=== PATIENT | female | born 1960 | race African-American/Black ===

== ENCOUNTER 2018-03-23 07:28 | Observation (INO) ==
--- NOTE | 2018-03-23 08:00 | Emergency Department Note ---
Disposition Clinical Impression: Elevated troponin, Subtherapeutic international normalized ratio (INR), S/P mitral valve replacement CHF exacerbation Qualifiers: Heart failure type: unspecified Qualified Code(s): I50.9 - Heart failure, unspecified Disposition: Admitted As Inpatient Condition: Good Time of Disposition: 10:33 Chest Pain HPI - General Chief Complaint: ED Chest Pain Stated Complaint: abnormal ekg,chest congestion,pericardial effusion Time Seen by Provider: 03/23/18 07:38 Source: patient Limitations: no limitations Vital Signs Reviewed: Yes Nursing Notes Reviewed: Yes - History of Present Illness HPI Narrative: 57-year-old female history of rheumatic fever s/p mitral porcine and then mechanical valve on Coumadin 1992 and pacemaker/defibrillator presents to the emergency department for congestion, chest pressure and concern of fluid around the heart. Patient's been experiencing cough congestion over the past 4 days. She also reports an incident of sharp chest pain while laying flat 1030 yesterday morning she got up and got more sharper she reports taking some Tylenol for headache as well as a nitro with immediate relief. She denies any chest pain at this moment. With congestion she has been more short of breath and feels more fatigued. Dyspneic on laying flat. She is typically very active but she feels more exhausted than usual. She does report incidents at work falling asleep. She denies any syncope. She does report a low-grade fever of 99 at home. No other sick contacts. Patient was evaluated at urgent care yesterday evening at 1700 where chest x-ray showed out in large heart with mild congestion with possibility of pericardial effusion. Patient was recommended to come to emergency department for further evaluation but declined transfer by ambulance and awaited until this morning to come. She denies any chest pain since. Denies any history of trauma. Of note she follows at the [facility] for her heart failure and valve. 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 She moved from [place] 2 years ago here to [place]. Denies any leg swelling. Denies any history of blood clots. She is not on any hormone replacement. At this time will obtain a chest x-ray basic labs and check her INR for the mechanical valve. Severity scale (1-10): 7 - Related Data Home Medications Medication Instructions Recorded Confirmed Carvedilol [Coreg] 25 mg PO BID 03/23/18 03/23/18 Digoxin [Lanoxin] 125 mcg PO DAILY 03/23/18 03/23/18 Furosemide [Lasix] 40 mg PO DAILY 03/23/18 03/23/18 Lisinopril [Zestril] 40 mg PO DAILY 03/23/18 03/23/18 Multivit-Minerals/Folic/Ginkgo 1 tab PO DAILY 03/23/18 03/23/18 [One Daily For Women 50+ Adv Tb] Nitroglycerin [Nitrostat] 0.4 mg SL Q5M PRN 03/23/18 03/23/18 [place]-3/Dha/Epa/Fish Oil [Fish Oil 1 tab PO DAILY 03/23/18 03/23/18 1,000 mg Softgel] Pravastatin Sodium [Pravachol] 20 mg PO DAILY 03/23/18 03/23/18 Warfarin [Coumadin] 7.5 mg PO SUTUTHSA 03/23/18 03/23/18 Warfarin [Coumadin] 10 mg PO MOWEFR 03/23/18 03/23/18 Allergies Allergy/AdvReac Type Severity Reaction Status Date / Time loratadine [From Claritin] Allergy Palpitation Verified 03/23/18 10:17 s morphine Allergy Hives Verified 03/23/18 10:17 All systems ED: reviewed and negative except as stated. Review of Systems: As Per HPI Constitutional: Reports: fever, chills. Denies: weakness ENT ED: Reports: congestion Cardiovascular: Reports: chest pain, dyspnea on exertion. Denies: palpitations Respiratory: Reports: cough, dyspnea Gastrointestinal: Denies: abdominal pain, nausea, vomiting Integumentary: Denies: rash, abrasion Chest Pain PMH - Past Medical History Medical history: Reports: non-contributory, asthma, CHF, hypertension, other Psychiatric history: Reports: no psych history - Social History Smoking Status: Never smoker Alcohol use: Reports: none Drug use: Reports: none Physical Exam - General Limitations: no limitations General appearance: alert, in no apparent distress - Head Head exam: atraumatic, normocephalic, normal inspection - Eye Eye exam: Present: normal appearance, PERRL, EOMI. Absent: scleral icterus - ENT ENT exam: normal exam, normal oropharynx, mucous membranes moist - Neck Neck exam: Present: normal inspection, full ROM, trachea midline - Chest Chest inspection: Present: normal inspection, symmetric chest wall rise, other ( midsternal). Absent: tenderness - Respiratory Respiratory exam: Absent: respiratory distress, wheezes, accessory muscle use - Expanded Respiratory Exam Location: rales: Lower - Cardiovascular Cardiovascular exam: Present: normal rhythm, tachycardia, normal heart sounds, clicks - Abdominal Exam Abdominal exam: Present: soft, Non-Tender, normal bowel sounds. Absent: tenderness, distention, guarding, rebound, rigidity - Extremities Exam Extremities exam: Present: normal inspection, full ROM, normal capillary refill. Absent: tenderness, pedal edema Course Course Narrative: Patient presents with chest pressure with dyspnea worse with laying flat. Concerning for possible CHF exacerbation. Prior chest x-ray performed with cardiomegaly and the possibility of pericardial effusion. Chest pain workup initiated here. Patient appears in no acute distress. EKG shows a paced rhythm without ischemic findings. - Reevaluation(s) Reevaluation #1: Patient has a elevated troponin 0.06. She is not have any chest pain at this time. Elevated BNP 554. Chest x-ray shows some vascular congestion. Suspect this is likely more acute CHF exacerbation Labs or otherwise unremarkable. Her INR is on the lower side given her mechanical valve of 1.5. She denies any G.I. bleed symptoms. Emergent bedside ultrasound performed given the concern for pericardial effusion in the presence of the admitting hospitalist which did not reveal any pericardial effusion or findings consistent with tamponade. The pump function of the heart appears on the lower side roughly 20%. At the request of the admitting hospitalist will obtain a bedside echocardiogram. Patients otherwise in stable condition. Impression is elevated troponin likely secondary to CHF exacerbation as well as a sub therapeutic INR. - Consultations Consultation #1: Spoke with on-call hospitalist niles Thompson to admit for elevated troponin. No further orders at this time Time: 10:33 Vital Signs Temperature 97.8 F 03/23/18 07:30 Pulse Rate 110 03/23/18 07:30 Respiratory Rate 16 03/23/18 07:30 Blood Pressure 147/100 03/23/18 07:30 O2 Sat by Pulse Oximetry 95 03/23/18 07:30 Temperature 98 F 03/23/18 19:17 Pulse Rate 70 03/23/18 19:17 Respiratory Rate 16 03/23/18 19:17 Blood Pressure 92/46 03/23/18 19:19 O2 Sat by Pulse Oximetry 95 03/23/18 19:17 Oxygen Delivery Oxygen Delivery Room Air Chest Pain - MDM Narrative Medical decision making narrative: Patient was discussed with my attending physician who agrees with ED management and final disposition. They independently evaluated the patient. Please refer to their attestation to this encounter for additional information. This note was generated by [employer] voice recognition software and as a result grammatical or spelling errors may occur using this program. - Medical Records Medical records reviewed: Yes I reviewed the patient's medical records. - Lab Data Lab results reviewed: Yes I reviewed the patient's lab results. Result diagrams: 03/23/18 08:26 03/23/18 08:26 Lab Results 03/23/18 03/23/18 03/23/18 Range/Units 08:26 08:26 08:26 WBC 5.5 (4.3-11.1) K/mcL RBC 4.55 (3.82-4.97) M/mcL Hgb 12.7 (11.5-15.4) g/dL Hct 39.7 (35.3-44.9) % MCV 87.3 (83.0-100.0) fL MCH 27.9 L (28.0-33.3) pg MCHC 32.0 (31.6-35.5) g/dL RDW 16.0 H (11.5-14.5) % Plt Count 241 (140-400) K/mcL MPV 9.6 (9.4-12.4) fL Immature Gran % 0.2 (0-4) % Seg Neutrophils % 63.5 % Lymphocytes % 25.5 % Monocytes % 7.8 % Eosinophils % 2.5 % Basophils % 0.5 % Neutrophils # 3.5 (1.6-8.9) K/mcL Lymphocytes # 1.4 (0.6-4.6) K/mcL Monocytes # 0.4 (0.0-1.3) K/mcL Eosinophils # 0.1 (0.0-0.6) K/mcL Basophils # 0.0 (0.0-0.2) K/mcL Platelet Estimate Normal (Normal) Immature Plt Fraction 2.4 (1.1-6.1) % PT 16.1 H (9.4-12.1) Seconds INR 1.5 APTT 28.3 (26.0-36.0) Seconds Sodium 137 (136-145) mEq/L Potassium 3.4 L (3.5-5.1) mEq/L Chloride 107 (98-107) mEq/L Carbon Dioxide 22 L (23-29) mEq/L BUN 8 (6-20) mg/dL Creatinine 0.63 (0.60-1.20) mg/dL Est GFR ( Amer) > 60 (> 60) Est GFR (Non-Af Amer) > 60 (> 60) BUN/Creatinine Ratio 13 (6-26) Glucose 83 (70-105) mg/dL Calculated Osmolality 281 (280-300) Calcium 9.8 (8.6-10.3) mg/dL Troponin I 0.06 H* (< 0.04) ng/mL B-Natriuretic Peptide (Less than 100) pg/mL 03/23/18 Range/Units 08:26 WBC (4.3-11.1) K/mcL RBC (3.82-4.97) M/mcL Hgb (11.5-15.4) g/dL Hct (35.3-44.9) % MCV (83.0-100.0) fL MCH (28.0-33.3) pg MCHC (31.6-35.5) g/dL RDW (11.5-14.5) % Plt Count (140-400) K/mcL MPV (9.4-12.4) fL Immature Gran % (0-4) % Seg Neutrophils % % Lymphocytes % % Monocytes % % Eosinophils % % Basophils % % Neutrophils # (1.6-8.9) K/mcL Lymphocytes # (0.6-4.6) K/mcL Monocytes # (0.0-1.3) K/mcL Eosinophils # (0.0-0.6) K/mcL Basophils # (0.0-0.2) K/mcL Platelet Estimate (Normal) Immature Plt Fraction (1.1-6.1) % PT (9.4-12.1) Seconds INR APTT (26.0-36.0) Seconds Sodium (136-145) mEq/L Potassium (3.5-5.1) mEq/L Chloride (98-107) mEq/L Carbon Dioxide (23-29) mEq/L BUN (6-20) mg/dL Creatinine (0.60-1.20) mg/dL Est GFR ( Amer) (> 60) Est GFR (Non-Af Amer) (> 60) BUN/Creatinine Ratio (6-26) Glucose (70-105) mg/dL Calculated Osmolality (280-300) Calcium (8.6-10.3) mg/dL Troponin I (< 0.04) ng/mL B-Natriuretic Peptide 554 H (Less than 100) pg/mL - Radiology Data Radiology results reviewed: Yes I reviewed the patient's radiology results. Echocardiogram 03/23/18 10:38 Impressions: LVEF 30%. Mild concentric left ventricular hypertrophy. Indeterminate diastolic function. Atypical septal motion consistent with paced rhythm. Right ventricle appears mildly dialted and hypokinetic. Severely dilated left atrium. Mechaical mitral valve well seated. Leaflets not well visualized, but demonstrate normal function by Doppler. No evidence of pulmonary hypertension identified. A device lead was visualized in the right atrium and right ventricle. Left Ventricular Wall Motion: Rest Echo Findings The apex, apical inferior, mid inferior, basal inferior, apical anterior, mid anterior, basal anterior, apical septal, mid inferior septal, basal inferior septal, apical lateral, mid anterior lateral, basal anterior lateral, mid anterior septal, mid inferior lateral, basal anterior septal and basal inferior lateral crowley were hypokinetic. Findings: Study Quality * Technically adequate exam. ECG Findings * Paced rhythm. Left Ventricle * LVEF 30%. * Normal LV chamber size. * Mild concentric left ventricular hypertrophy. * Indeterminate diastolic function. * Atypical septal motion consistent with paced rhythm. Right Ventricle * Right ventricle appears mildly dialted and hypokinetic. Left Atrium * Severely dilated left atrium. Right Atrium * Moderately dilated right atrium. Aortic Valve * Trileaflet aortic valve. * Trace aortic regurgitation. * No aortic stenosis. Mitral Valve * Mechaical mitral valve well seated. Leaflets not well visualized, but demonstrate normal function by Doppler. * No mitral regurgitation. * No mitral stenosis. Tricuspid Valve * Normal tricuspid valve structure and function. * Trace tricuspid regurgitation. * No evidence of pulmonary hypertension identified. Pulmonic Valve * Normal pulmonic valve structure and function. * No pulmonic regurgitation. Aorta * Normally sized aortic root. Pericardium * The pericardium appears normal. IVC * Normal IVC dimensions and inspiratory collapse. Device lead * A device lead was visualized in the right atrium and right ventricle. Pulmonary Artery * Normal visualized portions of the main pulmonary artery. - EKG Data EKG attestation: Yes I reviewed and interpreted this EKG. EKG results narrative: EKG performed 0748 electronic ventricular paced rhythm with [place] beats 108 beats per minute. No ST elevation or depression. QRS is 110. QT QTC through 61 425. Compared to prior EKG performed 03/22/2018 at 1841 shows similar consistent finding of a regular baseline rhythm with paced rhythm. No Sgarbossa criteria. No acute ischemic changes. Heart Score - Score History: Slightly Suspicious EKG: Non Specific repolarisation Disturbance Age: 45-65 Risk Factors: 1-2 risk factors Troponin: 1-3x normal limit HEART Score Total: 4
[2018-03-23] MEDS ORDERED: 0.9 % Sodium Chloride 500 ML IVC ONE (08:09)
[2018-03-23 08:43] LABS: Basophils % 0.5 %; Eosinophils # 0.1 K/mcL (0.0-0.6); Eosinophils % 2.5 %; Hematocrit 39.7 % (35.3-44.9); Hemoglobin 12.7 g/dL (11.5-15.4); Immature Granulocytes % 0.2 % (0-4); Immature Platelets 2.4 % (1.1-6.1); Lymphocytes # 1.4 K/mcL (0.6-4.6); Lymphocytes % 25.5 %; Mean Corpuscular Hemoglobin 27.9 pg (28.0-33.3); Mean Corpuscular Volume 87.3 fL (83.0-100.0); Mean Platelet Volume 9.6 fL (9.4-12.4); Monocytes # 0.4 K/mcL (0.0-1.3); Monocytes % 7.8 %; Neutrophils # 3.5 K/mcL (1.6-8.9); Platelet Count 241 K/mcL (140-400); Red Blood Count 4.55 M/mcL (3.82-4.97); Segmented Neutrophils % 63.5 %
[2018-03-23 08:59] LABS: BUN/Creatinine Ratio 13 (6-26); Blood Urea Nitrogen 8 mg/dL (6-20); Calcium 9.8 mg/dL (8.6-10.3); Carbon Dioxide 22 mEq/L (23-29); Chloride 107 mEq/L (98-107); Glucose 83 mg/dL (70-105); Osmolality,Calculated 281 (280-300); Potassium 3.4 mEq/L (3.5-5.1); Sodium 137 mEq/L (136-145); eGFR For African Americans > 60 (> 60); eGFR For Non-African Americans > 60 (> 60)
[2018-03-23 09:03] LABS: Troponin I 0.06 ng/mL (< 0.04)
[2018-03-23] MEDS ORDERED: Aspirin 81 MG TAB.CHEW PO STA (09:03)
--- NOTE | 2018-03-23 09:04 | Emergency Department Note ---
Disposition Clinical Impression: Elevated troponin CHF exacerbation Qualifiers: Heart failure type: unspecified Qualified Code(s): I50.9 - Heart failure, unspecified Disposition: Admitted As Inpatient Condition: Good General Adult HPI - General Chief complaint: ED Chest Pain Stated complaint: abnormal ekg,chest congestion,pericardial effusion Time Seen by Provider: 03/23/18 07:38 Source: patient Limitations: no limitations - History of Present Illness Pain Scale: 7 - Related Data Home Medications Medication Instructions Recorded Confirmed Carvedilol [Coreg] 25 mg PO BID 03/23/18 03/23/18 Digoxin [Lanoxin] 125 mcg PO DAILY 03/23/18 03/23/18 Furosemide [Lasix] 40 mg PO DAILY 03/23/18 03/23/18 Lisinopril [Zestril] 40 mg PO DAILY 03/23/18 03/23/18 Multivit-Minerals/Folic/Ginkgo 1 tab PO DAILY 03/23/18 03/23/18 [One Daily For Women 50+ Adv Tb] Nitroglycerin [Nitrostat] 0.4 mg SL Q5M PRN 03/23/18 03/23/18 [place]-3/Dha/Epa/Fish Oil [Fish Oil 1 tab PO DAILY 03/23/18 03/23/18 1,000 mg Softgel] Pravastatin Sodium [Pravachol] 20 mg PO DAILY 03/23/18 03/23/18 Warfarin [Coumadin] 7.5 mg PO SUTUTHSA 03/23/18 03/23/18 Warfarin [Coumadin] 10 mg PO MOWEFR 03/23/18 03/23/18 Allergies Allergy/AdvReac Type Severity Reaction Status Date / Time loratadine [From Claritin] Allergy Palpitation Verified 03/23/18 10:17 s morphine Allergy Hives Verified 03/23/18 10:17 Past Medical History - Past Medical History Medical history: Reports: non-contributory, asthma, CHF, hypertension, other Psychiatric history: Reports: no psych history - Social History Smoking Status: Never smoker Smokeless Tobacco Status: No Alcohol use: Reports: none Drug use: Reports: none Physical Exam - General Limitations: no limitations General appearance: alert, in no apparent distress Course Vital Signs Temperature 97.8 F 03/23/18 07:30 Pulse Rate 110 03/23/18 07:30 Respiratory Rate 16 03/23/18 07:30 Blood Pressure 147/100 03/23/18 07:30 O2 Sat by Pulse Oximetry 95 03/23/18 07:30 Temperature 98.2 F 03/23/18 15:30 Pulse Rate 96 03/23/18 15:30 Respiratory Rate 14 03/23/18 15:30 Blood Pressure 120/79 03/23/18 15:30 O2 Sat by Pulse Oximetry 97 03/23/18 15:30 Oxygen Delivery Oxygen Delivery Room Air Medical Decision Making - Lab Data Result diagrams: 03/23/18 08:26 03/23/18 08:26 Lab Results 03/23/18 03/23/18 03/23/18 Range/Units 08:26 08:26 08:26 WBC 5.5 (4.3-11.1) K/mcL RBC 4.55 (3.82-4.97) M/mcL Hgb 12.7 (11.5-15.4) g/dL Hct 39.7 (35.3-44.9) % MCV 87.3 (83.0-100.0) fL MCH 27.9 L (28.0-33.3) pg MCHC 32.0 (31.6-35.5) g/dL RDW 16.0 H (11.5-14.5) % Plt Count 241 (140-400) K/mcL MPV 9.6 (9.4-12.4) fL Immature Gran % 0.2 (0-4) % Seg Neutrophils % 63.5 % Lymphocytes % 25.5 % Monocytes % 7.8 % Eosinophils % 2.5 % Basophils % 0.5 % Neutrophils # 3.5 (1.6-8.9) K/mcL Lymphocytes # 1.4 (0.6-4.6) K/mcL Monocytes # 0.4 (0.0-1.3) K/mcL Eosinophils # 0.1 (0.0-0.6) K/mcL Basophils # 0.0 (0.0-0.2) K/mcL Platelet Estimate Normal (Normal) Immature Plt Fraction 2.4 (1.1-6.1) % PT 16.1 H (9.4-12.1) Seconds INR 1.5 APTT 28.3 (26.0-36.0) Seconds Sodium 137 (136-145) mEq/L Potassium 3.4 L (3.5-5.1) mEq/L Chloride 107 (98-107) mEq/L Carbon Dioxide 22 L (23-29) mEq/L BUN 8 (6-20) mg/dL Creatinine 0.63 (0.60-1.20) mg/dL Est GFR ( Amer) > 60 (> 60) Est GFR (Non-Af Amer) > 60 (> 60) BUN/Creatinine Ratio 13 (6-26) Glucose 83 (70-105) mg/dL Calculated Osmolality 281 (280-300) Calcium 9.8 (8.6-10.3) mg/dL Troponin I 0.06 H* (< 0.04) ng/mL B-Natriuretic Peptide (Less than 100) pg/mL 03/23/18 Range/Units 08:26 WBC (4.3-11.1) K/mcL RBC (3.82-4.97) M/mcL Hgb (11.5-15.4) g/dL Hct (35.3-44.9) % MCV (83.0-100.0) fL MCH (28.0-33.3) pg MCHC (31.6-35.5) g/dL RDW (11.5-14.5) % Plt Count (140-400) K/mcL MPV (9.4-12.4) fL Immature Gran % (0-4) % Seg Neutrophils % % Lymphocytes % % Monocytes % % Eosinophils % % Basophils % % Neutrophils # (1.6-8.9) K/mcL Lymphocytes # (0.6-4.6) K/mcL Monocytes # (0.0-1.3) K/mcL Eosinophils # (0.0-0.6) K/mcL Basophils # (0.0-0.2) K/mcL Platelet Estimate (Normal) Immature Plt Fraction (1.1-6.1) % PT (9.4-12.1) Seconds INR APTT (26.0-36.0) Seconds Sodium (136-145) mEq/L Potassium (3.5-5.1) mEq/L Chloride (98-107) mEq/L Carbon Dioxide (23-29) mEq/L BUN (6-20) mg/dL Creatinine (0.60-1.20) mg/dL Est GFR ( Amer) (> 60) Est GFR (Non-Af Amer) (> 60) BUN/Creatinine Ratio (6-26) Glucose (70-105) mg/dL Calculated Osmolality (280-300) Calcium (8.6-10.3) mg/dL Troponin I (< 0.04) ng/mL B-Natriuretic Peptide 554 H (Less than 100) pg/mL Attestation Statement - Attestation Attestation: I examined this patient and my medical decision-making was reviewed with the CARDIOTHORACIC ANESTHESIA TECHNICIAN/PA/Advanced Practice Nurse/Resident Physician. I agree with the documented findings, disposition and treatment plan as described except to the extent set forth below. I did see the patient spoke with an examine her and she does have bibasilar coarse crackles, history of aortic valve replacement and is on Coumadin labs are pending. The troponin level is minimally elevated at 0.06. Patient is not in respiratory distress but will need further evaluation hospital for her diagnosis of congestive heart failure, elevated BNP and this was discussed with the hospitalist. 0904
[2018-03-23 09:50] LABS: Platelet Estimate Normal (Normal)
--- NOTE | 2018-03-23 10:38 | Internal Med History&Physical ---
Date of Encounter: 03/23/18 Time of Encounter: 10:33 Internal Medicine - H&P: HPI Chief complaint: sobb , chest pain and cough Admitted From: Emergency Dept Plans for Post Hospital Care: Home History of present illness: Ms. Ojeda is a 57 year old female Patient with history of rheumatic fever had mitral valve replacement first with porcine valve and followed by [facility] mechanical valve in 1992 patient also has had ICD and an replacement twice last ICD 2014 at [facility] patient recently moved from [place] to [place] also history of hypertension she says she was told her heart was weak "about 20% . patient present with chest pressure , increased shortness of breath about 4 days, PND and cough productive of thick sputum no fever or chills she was seen in urgent care center and was told possibly paaricardial effusion and to go to the emergency room for further evaluation but t she decided to go home and then come back to the ER today. Evaluation BNP 554 troponin 0.06. Screening ultrasound ER does not show pericardial effusion but EF about 10-15% He will formally consult cardiology follow-up evaluation. Patient has been feeling very fatiqued and generalized weakness Past Med Surg Social Fam HX - Past Medical History Medical history: non-contributory, asthma, CHF, hypertension, other Psychiatric history: no psych history - Social History Smoking Status: Never smoker Smokeless Tobacco Status: No Alcohol use: none Drug use: none Internal Medicine - H&P: Meds Carvedilol [Coreg] 25 mg PO BID 03/23/18 [History] Digoxin [Lanoxin] 125 mcg PO DAILY 03/23/18 [History] Furosemide [Lasix] 40 mg PO DAILY 03/23/18 [History] Lisinopril [Zestril] 40 mg PO DAILY 03/23/18 [History] Multivit-Minerals/Folic/Ginkgo [One Daily For Women 50+ Adv Tb] 1 tab PO DAILY 03/23/18 [History] Nitroglycerin [Nitrostat] 0.4 mg SL Q5M PRN 03/23/18 [History] [place]-3/Dha/Epa/Fish Oil [Fish Oil 1,000 mg Softgel] 1 tab PO DAILY 03/23/18 [ History] Pravastatin Sodium [Pravachol] 20 mg PO DAILY 03/23/18 [History] Warfarin [Coumadin] 7.5 mg PO SUTUTHSA 03/23/18 [History] Warfarin [Coumadin] 10 mg PO MOWEFR 03/23/18 [History] 3 Allergy/AdvReac Type Severity Reaction Status Date / Time loratadine [From Claritin] Allergy Palpitation Verified 03/23/18 10:17 s morphine Allergy Hives Verified 03/23/18 10:17 All Systems PM: A 10-system review of systems was performed and is negative for pertinent findings except as documented above in the HPI. - Constitutional Constitutional: fatigue, weakness - EENT Eyes: no change in vision, no discharge, no pain, no photophobia Ears: no ear discharge, no ear pain, no tinnitus Nose, mouth and throat: no dysphagia, no nasal discharge, no neck pain, no sore throat - Cardiovascular Cardiovascular ROS IM: dyspnea, dyspnea on exertion - Respiratory Respiratory: dyspnea on exertion - Gastrointestinal Gastrointestinal: no abdominal pain, no diarrhea, no hematemesis, no hematochezia, no melena, no nausea, no vomiting - Genitourinary Genitourinary: no change in urinary stream, no dysuria, no flank pain, no hematuria - Musculoskeletal Musculoskeletal ROS IM: no numbness, no tingling - Constitutional Vitals: Temp Pulse Resp BP Pulse Ox 97.8 F 87 18 142/97 93 03/23/18 07:40 03/23/18 09:42 03/23/18 09:42 03/23/18 09:42 03/23/18 09:42 - Head Head exam: Present: atraumatic, normocephalic - Eye Eye exam: Present: PERRL, conjuntiva pink, sclera anicteric Pupils: Present: PERRL - Respiratory Respiratory exam: Present: rales - Cardiovascular Cardiovascular exam: Present: RRR, +S1, +S2, +S3, systolic murmur. Absent: diastolic murmur, gallop, rubs - GI/Abdominal GI/Abdominal exam: Present: normal bowel sounds, soft, no peritoneal signs. Absent: distended, tenderness - Extremities Exam Extremities exam: Present: warm, radial pulses palpable and symmetrical. Absent : calf tenderness, cyanotic, pedal edema Internal Med - H&P Results - Labs CBC & Chem 7: 03/23/18 08:26 03/23/18 08:26 Labs: Short CBC 03/23/18 Range/Units 08:26 WBC 5.5 (4.3-11.1) K/mcL Hgb 12.7 (11.5-15.4) g/dL Hct 39.7 (35.3-44.9) % Plt Count 241 (140-400) K/mcL Neutrophils # 3.5 (1.6-8.9) K/mcL BMP 03/23/18 08:26 Sodium 137 Potassium 3.4 L Chloride 107 Carbon Dioxide 22 L BUN 8 Creatinine 0.63 Glucose 83 Calcium 9.8 Cardiac Enzymes 03/23/18 Range/Units 08:26 Troponin I 0.06 H* (< 0.04) ng/mL - Assessment and plan (1) Acute on chronic systolic (congestive) heart failure Current Visit: Yes Status: Acute Assessment and plan: Acute on chronic systolic heart failure we will resume home medication and started on IV Lasix Cardiology consult (2) S/P MVR (mitral valve replacement) Current Visit: Yes Status: Acute Assessment and plan: Patient has [facility] mechanical valve normal opening and closing clicks (3) HTN (hypertension) Current Visit: Yes Status: Chronic Assessment and plan: Need better blood pressure control in view of severe lv dysfunction Qualifiers: Hypertension type: essential hypertension Qualified Code(s): I10 - Essential (primary) hypertension (4) Bronchitis Current Visit: Yes Status: Acute Assessment and plan: Bronchitis awaiting chest x-ray to rule out pneumonia (5) Anticoagulant long-term use Current Visit: Yes Status: Acute (6) ICD (implantable cardioverter-defibrillator) in place Current Visit: Yes Status: Chronic Assessment and plan: No recent shock - Time Spent With Patient Total time spent is greater than 50% in coordination of care (as documented) at patient's floor/unit and/or counseling patient:
[2018-03-23] MEDS ORDERED: Nitroglycerin 1 INCH/GM PACKET TP ONE (10:40)
[2018-03-23] MEDS ORDERED: Furosemide 40 MG/4 ML VIAL IVP ONE (10:40)
[2018-03-23] MEDS ORDERED: Naloxone 0.4 MG/ML INJ IVP PRN (10:48)
[2018-03-23] MEDS ORDERED: Acetaminophen 325 MG TABLET PO PRN (10:48)
[2018-03-23] MEDS ORDERED: Potassium Chloride 40 MEQ, Lidocaine 1% 2 ML in D5% in Water 500 ML IVPB ONE (10:55)
[2018-03-23 11:58] LABS: INR 1.5; Prothrombin Time 16.1 Seconds (9.4-12.1)
[2018-03-23 12:00] LABS: Activated Partial Thrombo Time 28.3 Seconds (26.0-36.0)
--- NOTE | 2018-03-23 13:45 | Cardiology Consult Note ---
<Madisyn Benedict - Last Filed: 03/23/18 14:43> Date of Encounter: 03/23/18 Time of Encounter: 13:40 Assessment and Plan (1) Elevated troponin Current Visit: Yes Status: Acute Unknown previous levels. will obtain outside [facility] records. Etiology unclear possibly secondary to mild acute systolic CHF exacerbation. EKG shows no signs of acute ischemic findings. (2) Subtherapeutic anticoagulation Current Visit: Yes Status: Acute Patient's goal INR 2.5-3.5. Start heparin as a bridge for anticoagulation in setting of mechanical mitral valve. High risk for valve thrombosus. (3) Elevated brain natriuretic peptide (BNP) level Current Visit: Yes Status: Acute Request records from [facility]. Patient not fluid overloaded on exam. Echo pending. Patient believes last EF was 15-20%. Minimally elevated but EKG show biventricular ICD which is suggestive of chronic systolic heart failure. Also on digoxin which could also be due to chronic systolic heart failure. Discussion w patient/family: The assessment and plan as outlined above was discussed with the patient and/or family members who expressed understanding and agreement. All questions were answered. Thank you for involving us in the care of your patient. Please call with any questions. History of Present Illness Consult date: 03/23/18 Consult reason: CHF, elevated troponin History of present illness: Ms. Ojeda is a 57 year old female with history of rheumatic fever and mechanical mitral valve replacement. Patient also has ICD and follow with [facility]. Patient believes her last echo showed EF of 20%. Patient was admitted for chest pressure that occurs when she coughs. Patient did state she had one episode of chest pressure not associated with coughing yesterday. She took one nitro and was relieed. She was seen in urgent care yesterday and told she could have a pleural effusion from chest x-ray and to go to the emergency room for further evaluation. BNP 554 troponin 0.06. Patient denies any chest pain/pressure or palpitations at this time. On coumadin for anticoagulation. INR 1.5 Past Med Surg Social Fam HX - Past Medical History Medical history: non-contributory, asthma, CHF, hypertension, other Psychiatric history: no psych history - Social History Smoking Status: Never smoker Smokeless Tobacco Status: No Alcohol use: none Drug use: none - Family History Father Living Status: Age at : 50 Cause of : gun shot Mother Living Status: Age at : 37 Cause of : heart attack Hx Family Respiratory Disorders: Yes Sister Hx Family Cardiac Disorders: Yes Brother Hx Family Cardiac Disorders: Yes Hx Family Cancer: Yes Hx Family Genitourinary Disorders: Yes Medications and Allergies Carvedilol [Coreg] 25 mg PO BID 03/23/18 [History] Digoxin [Lanoxin] 125 mcg PO DAILY 03/23/18 [History] Furosemide [Lasix] 40 mg PO DAILY 03/23/18 [History] Lisinopril [Zestril] 40 mg PO DAILY 03/23/18 [History] Multivit-Minerals/Folic/Ginkgo [One Daily For Women 50+ Adv Tb] 1 tab PO DAILY 03/23/18 [History] Nitroglycerin [Nitrostat] 0.4 mg SL Q5M PRN 03/23/18 [History] [place]-3/Dha/Epa/Fish Oil [Fish Oil 1,000 mg Softgel] 1 tab PO DAILY 03/23/18 [ History] Pravastatin Sodium [Pravachol] 20 mg PO DAILY 03/23/18 [History] Warfarin [Coumadin] 7.5 mg PO SUTUTHSA 03/23/18 [History] Warfarin [Coumadin] 10 mg PO MOWEFR 03/23/18 [History] 3 Allergy/AdvReac Type Severity Reaction Status Date / Time loratadine [From Claritin] Allergy Palpitation Verified 03/23/18 10:17 s morphine Allergy Hives Verified 03/23/18 10:17 All Systems Review: The remainder of the systems were reviewed and are negative - Constitutional Constitutional: no fever(s), no weight gain - EENT Eyes: no blurred vision, no loss of vision - Cardiovascular Cardiovascular: as per HPI - Respiratory Respiratory: cough, no hemoptysis, no wheezing - Gastrointestinal Gastrointestinal: no abdominal pain, no nausea - Musculoskeletal Musculoskeletal: no abnormal gait - Integumentary Integumentary: no rash - Neurological Neurological: no abnormal speech, no focal weakness Physical Examination Vital Signs, Last 4 Hours Temp Pulse Resp BP Pulse Ox 03/23/18 11:31 97.7 F 95 14 150/84 96 03/23/18 11:07 18 127/76 General: Conversant, No Apparent Distress HEENT: Atraumatic, Normocephaly, Mucus Membranes Moist Neck: No JVD, Normal carotid pulses Cardiac: Reg Rate and Rhythm, Normal S1 and S2, No Murmur Lungs: Other (Decreased breath sounds bilaterally) Neuro: Alert and responsive, No focal deficits noted Abdomen: Soft, Non-Tender Skin: No rashes noted on visualized skin Musculoskeletal: No Chest Wall Tenderness Extremities: No Clubbing, No Cyanosis, No Edema, Normal Pulses Results 03/23/18 08:26 03/23/18 08:26 Consult Discharge Plan - Plan Referrals: NONE,PCP [Primary Care Provider] - <Ro Mendoza - Last Filed: 03/23/18 15:28> Date of Encounter: 03/23/18 - Attending Attestation I examined this patient and my medical decision-making was reviewed with the Resident Physician. I agree with the documented findings, disposition and treatment plan. Patient seen and independently examined. Presents with a cough over the past 4 days. Urgent care CXR demonstrated concern for mild congestion. BNP mildly elevated upon admission. Troponins flat and minimally elevated. Patient poor historian. By ECG patient possibly had a BiV ICD likely secondary to chronic systolic heart failure. Will request records from [facility]. Agree with IV diuresis, echo. Troponins likely secondary to acute heart failure exacerbation. BB, ACEI, aldosterone antagonist, digoxin. Given history of mechanical mitral valve, recommend starting heparin as bridge to coumadin due to subtherapeutic INR of 1.5. Plan discussed with patient who is in agreement. All questions answered. Assessment and Plan Discussion w patient/family: The assessment and plan as outlined above was discussed with the patient and/or family members who expressed understanding and agreement. All questions were answered. Thank you for involving us in the care of your patient. Please call with any questions. History of Present Illness History of present illness: Ms. Ojeda is a 57 year old female All Systems Review: The remainder of the systems were reviewed and are negative Physical Examination Vital Signs, Last 4 Hours Temp Pulse Resp BP Pulse Ox 03/23/18 11:31 97.7 F 95 14 150/84 96 Results 03/23/18 08:26 03/23/18 08:26 Lab Results 03/23/18 14:30 Troponin I 0.06 H*
[2018-03-23] MEDS ORDERED: *HR* Heparin 5,000 UNIT/ML VIAL IVP PRN ×2 (14:42)
[2018-03-23] MEDS ORDERED: *HR* Heparin 5,000 UNIT/ML VIAL IVP ONE (14:42)
[2018-03-23] MEDS ORDERED: Heparin 25,000 UNIT/500 ML D5W 25,000 UNIT/500 ML BAG IVC SCH (14:45)
[2018-03-23] MEDS: Furosemide 40 MG/4 ML VIAL IVP SCH (15:46)
--- NOTE | 2018-03-23 16:17 | Electrocardiograph Report ---
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
[2018-03-23] MEDS ORDERED: *HR* Warfarin 7.5 MG TABLET PO SCH (18:00)
[2018-03-23 22:41] LABS: Activated Partial Thrombo Time > 360.0 Seconds (26.0-36.0)
[2018-03-23 22:53] LABS: Heparin anti-factor XA UFH 1.17 IU/mL (0.30-0.70)
[2018-03-23] MEDS: Spironolactone 25 MG TABLET PO SCH (23:28)
[2018-03-24 05:32] LABS: Hematocrit 35.6 % (35.3-44.9); Hemoglobin 11.6 g/dL (11.5-15.4); Mean Corpuscular HGB Conc 32.6 g/dL (31.6-35.5); Mean Corpuscular Hemoglobin 28.1 pg (28.0-33.3); Mean Corpuscular Volume 86.2 fL (83.0-100.0); Mean Platelet Volume 9.9 fL (9.4-12.4); Platelet Count 235 K/mcL (140-400); Red Blood Count 4.13 M/mcL (3.82-4.97); Red Cell Distribution Width 15.8 % (11.5-14.5)
[2018-03-24 05:46] LABS: Alanine Aminotransferase 9 Units/L (7-52); Albumin 3.5 g/dL (3.5-5.7); Albumin/Globulin Ratio 1.2 (1.1-2.2); Alkaline Phosphatase 66 Units/L (34-104); Aspartate Amino Transferase 19 Units/L (13-39); BUN/Creatinine Ratio 21 (6-26); Bilirubin,Total 1.3 mg/dL (0.3-1.0); Blood Urea Nitrogen 15 mg/dL (6-20); Calcium 9.5 mg/dL (8.6-10.3); Carbon Dioxide 25 mEq/L (23-29); Chloride 106 mEq/L (98-107); Chol/HDL Ratio 5.6 (0-4.9); Cholesterol 106 mg/dL (< 200); Glucose 90 mg/dL (70-105); HDL Cholesterol 19 mg/dL (40-59); LDL Cholesterol,Calculated 77 mg/dL (0-99); Magnesium 1.8 mg/dL (1.6-2.6); Osmolality,Calculated 286 (280-300); Potassium 3.4 mEq/L (3.5-5.1); Sodium 138 mEq/L (136-145); Total Protein 6.5 g/dL (6.4-8.9); Triglycerides 52 mg/dL (< 150); eGFR For African Americans > 60 (> 60); eGFR For Non-African Americans > 60 (> 60)
[2018-03-24 06:18] LABS: Digoxin < 0.3 ng/mL (0.8-2.0); Troponin I 0.06 ng/mL (< 0.04)
[2018-03-24] MEDS: Furosemide 40 MG/4 ML VIAL IVP SCH (07:54)
[2018-03-24] MEDS: Spironolactone 25 MG TABLET PO SCH (07:55)
[2018-03-24] MEDS ORDERED: Isosorbide MONOnitrate (24 HR) 60 MG TAB.ER.24H PO SCH (09:00)
[2018-03-24] MEDS ORDERED: *HR* Digoxin 0.125 MG TABLET PO SCH (09:00)
[2018-03-24] MEDS ORDERED: Lisinopril 20 MG TABLET PO SCH (09:00)
[2018-03-24] MEDS ORDERED: (Omega-3/Dha/Epa/Fish Oil [Fish Oil 1,000 Mg Softgel]) PO SCH (09:00)
[2018-03-24] MEDS ORDERED: Multivit/Ca/Min/Fe/FA 1 TAB TABLET PO SCH (09:00)
[2018-03-24 11:10] VITALS: BP 95/53
--- NOTE | 2018-03-24 11:10 | Cardiology Progress Note ---
<Madisyn Benedict - Last Filed: 03/24/18 11:08> Date of Encounter: 03/24/18 Time of Encounter: 11:08 Assessment and Plan (1) Elevated troponin Current Visit: Yes Status: Acute EKG shows no signs of acute ischemic findings. Still awaiting records from [facility]. Exact previous EF unknown. Now 30%. Plan to continue medical management and sign off on the patient with outpatient follow up. (2) Subtherapeutic anticoagulation Current Visit: Yes Status: Acute Patient's goal INR 2.5-3.5. Bridge with lovenox upon discharge. (3) Elevated brain natriuretic peptide (BNP) level Current Visit: Yes Status: Acute Patient not fluid overloaded on exam. Echo shows EF of 30%. BNP decreasing. Discussion w patient/family: The assessment and plan as outlined above was discussed with the patient and/or family members who expressed understanding and agreement. All questions were answered. Thank you for involving us in the care of your patient. Please call with any questions. Subjective Principal diagnosis: Systolic CHF Interval history: Patient feeling better today. Euvolemic on exam. Patient states she is ready to go home. Denies chest pain, pressure or palpitations Objective Vital Signs, Last 4 Hours Temp Pulse Resp BP Pulse Ox 03/24/18 07:24 98.2 F 76 14 119/72 95 General: Conversant, No Apparent Distress HEENT: Atraumatic, Normocephaly, Mucus Membranes Moist Neck: No JVD, Normal carotid pulses Cardiac: Reg Rate and Rhythm Lungs: Normal Breath Sounds, No Wheeze, Rales, Rhonchi Neuro: Alert and responsive, No focal deficits noted Abdomen: Soft, Non-Tender Skin: No rashes noted on visualized skin Musculoskeletal: No Chest Wall Tenderness Extremities: No Cyanosis, Normal Pulses Results 03/24/18 04:00 03/24/18 04:00 Lab Results 03/23/18 03/23/18 03/23/18 14:30 20:10 22:05 WBC Hgb Hct Plt Count APTT > 360.0 H* D Sodium Potassium Chloride Carbon Dioxide BUN Creatinine Glucose Calcium Magnesium Total Bilirubin AST ALT Alkaline Phosphatase Troponin I 0.06 H* 0.07 H* B-Natriuretic Peptide 03/24/18 03/24/18 03/24/18 04:00 04:00 04:00 WBC 4.9 Hgb 11.6 Hct 35.6 Plt Count 235 APTT Sodium 138 Potassium 3.4 L Chloride 106 Carbon Dioxide 25 BUN 15 Creatinine 0.72 Glucose 90 Calcium 9.5 Magnesium 1.8 Total Bilirubin 1.3 H AST 19 ALT 9 Alkaline Phosphatase 66 Troponin I 0.06 H* B-Natriuretic Peptide 223 H 03/24/18 05:00 WBC Hgb Hct Plt Count APTT 98.1 H D Sodium Potassium Chloride Carbon Dioxide BUN Creatinine Glucose Calcium Magnesium Total Bilirubin AST ALT Alkaline Phosphatase Troponin I B-Natriuretic Peptide Consult Discharge Plan - Plan Referrals: NONE,PCP [Primary Care Provider] - <Ro Mendoza - Last Filed: 03/24/18 12:25> Date of Encounter: 03/24/18 Assessment and Plan Discussion w patient/family: I examined this patient and my medical decision-making was reviewed with the Resident Physician. I agree with the documented findings, disposition and treatment plan. Ms. Ojeda is feeling better. She is interested in going home. She appears relatively euvolemic at this time. EF returned demonstrated severely reduced function 30% which presumably is not new. Patient has a reported history of chronic systolic heart failure and is s/p BiV ICD. Troponins are flat, adynamic representing systolic heart failure and not ACS. At this time, it is reasonable to let her go home with current medical therapy (BB, ACEI, aldosterone antagonist, lasix, statin, digoxin, imdur). She would like to follow with [facility] locally and [facility] yearly. We can obtain [facility] records as outpatient. Will sign off. Please ensure patient is bridged with Lovenox to coumadin for mechanical mitral valve goal INR 2.5 to 3.5. Objective Vital Signs, Last 4 Hours Temp Pulse Resp BP Pulse Ox 03/24/18 11:09 97.9 F 71 14 95/53 92 Results 03/24/18 04:00 03/24/18 04:00 Lab Results 03/23/18 03/23/18 03/23/18 14:30 20:10 22:05 WBC Hgb Hct Plt Count APTT > 360.0 H* D Sodium Potassium Chloride Carbon Dioxide BUN Creatinine Glucose Calcium Magnesium Total Bilirubin AST ALT Alkaline Phosphatase Troponin I 0.06 H* 0.07 H* B-Natriuretic Peptide 03/24/18 03/24/18 03/24/18 04:00 04:00 04:00 WBC 4.9 Hgb 11.6 Hct 35.6 Plt Count 235 APTT Sodium 138 Potassium 3.4 L Chloride 106 Carbon Dioxide 25 BUN 15 Creatinine 0.72 Glucose 90 Calcium 9.5 Magnesium 1.8 Total Bilirubin 1.3 H AST 19 ALT 9 Alkaline Phosphatase 66 Troponin I 0.06 H* B-Natriuretic Peptide 223 H 03/24/18 03/24/18 05:00 11:32 WBC Hgb Hct Plt Count APTT 98.1 H D 73.7 H Sodium Potassium Chloride Carbon Dioxide BUN Creatinine Glucose Calcium Magnesium Total Bilirubin AST ALT Alkaline Phosphatase Troponin I B-Natriuretic Peptide
[2018-03-24 11:55] LABS: Activated Partial Thrombo Time 73.7 Seconds (26.0-36.0)
--- NOTE | 2018-03-24 13:36 | Discharge Summary ---
- NOTES TO OUTPATIENT PROVIDER Notes to Outpatient Provider: Follow-up with primary care physician within the next 7 days. Follow-up with Coumadin clinic on Tuesday. Increase warfarin to 10 mg daily. Continue Lovenox until INR is more than 2.5 Orders not resulted at time of discharge: Pending orders 03/24/18 11:32 PTT [Activated Partial Thrombo Time] [COAG] Timed Prothrombin Time INR [COAG] Timed 03/24/18 17:30 PTT [Activated Partial Thrombo Time] [COAG] Routine Date of Encounter: 03/24/18 Time of Encounter: 13:33 - Discharge Diagnosis (1) Acute on chronic systolic (congestive) heart failure Priority: Primary Status: Acute Assessment and Plan: Acute on chronic CHF exacerbation (2) Anticoagulant long-term use Priority: Secondary Status: Acute (3) Bronchitis Priority: Secondary Status: Acute Assessment and Plan: Likely acute viral bronchitis (4) Elevated troponin Priority: Secondary Status: Acute Assessment and Plan: Possibly related to demand ischemia (5) S/P MVR (mitral valve replacement) Priority: Secondary Status: Acute Assessment and Plan: Mechanical valve (6) Subtherapeutic international normalized ratio (INR) Priority: Secondary Status: Acute (7) HTN (hypertension) Priority: Secondary Status: Chronic Qualifiers: Hypertension type: essential hypertension Qualified Code(s): I10 - Essential (primary) hypertension (8) ICD (implantable cardioverter-defibrillator) in place Priority: Secondary Status: Chronic Hospital course: Ms. Ojeda is a 57 year old female with history of rheumatic fever, had mitral valve replacement , first with porcine valve and followed by [facility] mechanical valve in 1992 patient also has had ICD and an replacement twice last ICD 2014 at [facility], the patient recently moved from [place] to [place]. Patient believed her last echo showed EF of 20%. Patient was admitted for chest pressure that occured when she coughs. Patient did state she had one episode of chest pressure not associated with coughing the day prior to admission. She took one nitro and was relieved. She was seen in urgent care and was told she could have a pleural effusion. BNP 554 troponin 0.06. Patient denies any chest pain/pressure or palpitations at this time. On coumadin for anticoagulation, INR was1.5. She was started on a heparin drip as her INR was not therapeutic. She has a goal of INR between 2.5 and 3.5. The patient's troponins were 0.06, increased up to 0.07 and decrease again down to 0.06. Denies any chest pain. Chest x-ray showed vascular congestion. The patient was started on IV Lasix. Was evaluated by the cardiology team and medical management was recommended. Today echocardiogram performed here at the hospital showed an ejection fraction of 30% with indeterminant diastolic function. Stable to be discharged. - Time Spent with Patient Total time spent providing and/or coordinating discharge services: Greater than 30 minutes (40 min) - Discharge Medications Prescriptions: Enoxaparin [Lovenox *PHARMACY WT BASED*] 80 mg SQ Q12HR #14 mg Furosemide [Lasix] 40 mg PO DAILY #30 tablet Spironolactone [Aldactone] 25 mg PO DAILY #30 tablet Warfarin [Coumadin] 10 mg PO DAILY #30 tablet Home Medications: Carvedilol [Coreg] 25 mg PO BID 03/23/18 [History] Digoxin [Lanoxin] 125 mcg PO DAILY 03/23/18 [History] Lisinopril [Zestril] 40 mg PO DAILY 03/23/18 [History] Multivit-Minerals/Folic/Ginkgo [One Daily For Women 50+ Adv Tb] 1 tab PO DAILY 03/23/18 [History] Nitroglycerin [Nitrostat] 0.4 mg SL Q5M PRN 03/23/18 [History] [place]-3/Dha/Epa/Fish Oil [Fish Oil 1,000 mg Softgel] 1 tab PO DAILY 03/23/18 [ History] Pravastatin Sodium [Pravachol] 20 mg PO DAILY 03/23/18 [History] Enoxaparin [Lovenox *PHARMACY WT BASED*] 80 mg SQ Q12HR #14 mg 03/24/18 [Rx] Furosemide [Lasix] 40 mg PO DAILY #30 tablet 03/24/18 [Rx] Spironolactone [Aldactone] 25 mg PO DAILY #30 tablet 03/24/18 [Rx] Warfarin [Coumadin] 10 mg PO DAILY #30 tablet 03/24/18 [Rx] Allergies/Adverse Reactions: 3 Allergy/AdvReac Type Severity Reaction Status Date / Time loratadine [From Claritin] Allergy Palpitation Verified 03/23/18 10:17 s morphine Allergy Hives Verified 03/23/18 10:17 Date of admission: 03/23/18 10:48 Primary care physician: PCP NONE Consults: 03/23/18 10:53 Consult for Pharmacy Education [CONS] Routine Reason for Consult: coumadin management Call Completed: No 03/23/18 16:52 Consult to Invasive Line Access Team [CONS] Routine Reason for Consult: no iv acccess Line Type: EPIV 03/24/18 09:11 Consult to Nurse Navigator [CONS] Routine Comment: CHF, EF 15-20% - Constitutional Vitals: Temp Pulse Resp BP Pulse Ox 97.9 F 71 14 95/53 92 03/24/18 11:09 03/24/18 11:09 03/24/18 11:09 03/24/18 11:09 03/24/18 11:09 General appearance: Present: A&O X 3 - Head Head exam: Present: atraumatic, normocephalic - Eye Eye exam: Present: PERRL, conjuntiva pink, sclera anicteric Pupils: Present: PERRL - Neck Neck exam general surgery: Present: supple, trachea midline. Absent: lymphadenopathy - Respiratory Respiratory exam: Present: CTAB. Absent: accessory muscle use, rales, rhonchi, wheezes - Cardiovascular Cardiovascular exam: Present: clicks (Systolic click), RRR. Absent: diastolic murmur, gallop, rubs, +S1, +S2, systolic murmur - GI/Abdominal GI/Abdominal exam: Present: normal bowel sounds, soft, no peritoneal signs. Absent: distended, tenderness - Extremities Exam Extremities exam: Present: warm, radial pulses palpable and symmetrical. Absent : calf tenderness, cyanotic, pedal edema - Neurological Exam Neurological exam: Present: CN II-XII intact, oriented X3, no focal deficits. Absent: pronater drift, facial droop, speech deficit - Skin Skin exam: Present: dry, intact - Patient Status Disposition: Home, Self-Care Condition: Good Overall status at discharge: patient is back to baseline - Discharge Instructions Follow Up With: NONE,PCP [Primary Care Provider] - - Diet and Activity Activity: increase activity as tolerated Diet: low fat, low cholesterol
[2018-03-24] MEDS ORDERED: *HR* Enoxaparin 80 MG/0.8 ML SYRINGE SQ SCH (13:45)
[2018-03-24 14:20] LABS: INR 1.5; Prothrombin Time 16.5 Seconds (9.4-12.1)
[2018-03-24] MEDS ORDERED: *HR* Warfarin 10 MG TABLET PO SCH (18:00)
== END 2018-03-24 15:12 | disposition home or self-care (01) ==
LOC: EMEROO 07:28 → 3BNU 07:28
PROVIDERS: ADMIT Internal Medicine; ATTEND Internal Medicine

== ENCOUNTER 2018-07-21 09:18 | Inpatient (IN) ==
--- NOTE | 2018-07-21 09:40 | Emergency Department Note ---
Disposition Clinical Impression: Elevated INR Disposition: Admitted As Inpatient Referrals: Arnold Purdy [Primary Care Provider] - Forms: ED Satisfaction Letter General Adult HPI - General Chief complaint: ED Recheck/Abnormal Lab/Rx Stated complaint: Abnormal labs Time Seen by Provider: 07/21/18 09:25 Source: patient Mode of arrival: private vehicle Limitations: no limitations Nursing Notes Reviewed: Yes Vital Signs Reviewed: Yes - History of Present Illness HPI Narrative: Patient is a 57-year-old female with past medical history of mitral valve replacement on Coumadin, pacemaker/difibrillator placement, congestive heart failure on digoxin, hypertension presents from the Coumadin clinic with elevated INR. Patient states this morning she was at the Coumadin clinic. She states her INR is over 8. She was told to hold her Coumadin for 5 days and to come to the ER for labs. They recommended obtaining BMP, PT/INR, and digoxin level. The patient denies any blood loss. Denies epistaxis, hematochezia, melena, hematuria, chest pain, shortness of breath, abdominal pain. No complaints at this time. Pain Scale: 0 - Related Data Home Medications Medication Instructions Recorded Confirmed Carvedilol [Coreg] 25 mg PO BID 03/23/18 04/06/18 Digoxin [Lanoxin] 125 mcg PO DAILY 03/23/18 04/06/18 Lisinopril [Zestril] 40 mg PO DAILY 03/23/18 04/06/18 Multivit-Minerals/Folic/Ginkgo 1 tab PO DAILY 03/23/18 04/06/18 [One Daily For Women 50+ Adv Tb] Nitroglycerin [Nitrostat] 0.4 mg SL Q5M PRN 03/23/18 03/23/18 [place]-3/Dha/Epa/Fish Oil [Fish Oil 1 tab PO DAILY 03/23/18 03/23/18 1,000 mg Softgel] Pravastatin Sodium [Pravachol] 20 mg PO DAILY 03/23/18 04/06/18 Warfarin [Coumadin] 10 mg PO AD 04/06/18 04/06/18 Previous Rx's Medication Instructions Recorded Furosemide [Lasix] 40 mg PO DAILY #30 tablet 03/24/18 Spironolactone [Aldactone] 25 mg PO DAILY #30 tablet 03/24/18 Allergies Allergy/AdvReac Type Severity Reaction Status Date / Time loratadine [From Claritin] Allergy Palpitation Verified 03/23/18 10:17 s morphine Allergy Hives Verified 03/23/18 10:17 All systems ED: reviewed and negative except as stated. Review of Systems: As Per HPI Constitutional: Denies: fever, chills Eyes: Denies: vision change ENT ED: Denies: throat pain, congestion Cardiovascular: Denies: chest pain, palpitations Respiratory: Denies: cough, dyspnea Gastrointestinal: Denies: abdominal pain, melena, hematochezia Genitourinary: Denies: dysuria, hematuria Musculoskeletal: Denies: back pain Integumentary: Denies: abrasion, lesions Neurological: Denies: headache, weakness Hematological/Lymphatic: Reports: easy bruising (on coumadin) Past Medical History - Past Medical History Attestation: Yes The following information was validated with the patient. Medical history: Reports: non-contributory, asthma, CHF, hypertension, other Psychiatric history: Reports: no psych history - Social History Smoking Status: Never smoker Smokeless Tobacco Status: No Alcohol use: Reports: none Drug use: Reports: none Physical Exam - General Limitations: no limitations General appearance: alert, in no apparent distress - Head Head exam: atraumatic, normocephalic - Eye Eye exam: Present: normal appearance, EOMI - ENT ENT exam: normal exam, mucous membranes moist - Respiratory Respiratory exam: Present: normal lung sounds bilaterally. Absent: respiratory distress, wheezes - Cardiovascular Cardiovascular exam: Present: regular rate, normal rhythm, systolic murmur, other (Mechanical click) - Abdominal Exam Abdominal exam: Present: soft, Non-Tender, normal bowel sounds - Neurological Exam Neurological exam: Present: alert, oriented X3, CN II-XII intact - Psychiatric Psychiatric exam: Present: normal affect, normal mood - Skin Skin exam: Present: warm, dry, intact, other (no echymosis or petechia) Course Vital Signs Temperature 97.3 F L 07/21/18 09:20 Pulse Rate 90 07/21/18 09:20 Respiratory Rate 16 07/21/18 09:20 Blood Pressure 153/105 07/21/18 09:20 O2 Sat by Pulse Oximetry 94 07/21/18 09:20 Temperature 97.3 F L 07/21/18 09:44 Pulse Rate 90 07/21/18 09:44 Respiratory Rate 16 08/31/18 09:44 Blood Pressure 153/105 07/21/18 09:44 O2 Sat by Pulse Oximetry 94 07/21/18 09:44 Oxygen Delivery Oxygen Delivery Room Air Medical Decision Making - MDM Narrative Medical decision making narrative: We will check CBC, BMP, digoxin level, PT/INR, PTT. Patient has no acute blood loss at this time. She denies melena, hematochezia, epistaxis, hematuria. 10:05 Patient complaining of mild headache. Tylenol given. 10:35 INR is 10.2. PT 115.3. Vitamin K 5 mg IV is ordered. Patient will need to be admitted for repeat of INR to make sure it is trending down. CT head ordered as the patient has a headache and INR elevated to rule out intracranial bleed. 11:05 CT head negative. Consult hospitalist for admission. 11:35 Discussed with hospitalist. Patient is admitted for further management of elevated INR All questions answered and patient is agreeable to plan of care. - Medical Records Medical records reviewed: Yes I reviewed the patient's medical records. - Lab Data Lab results reviewed: Yes I reviewed the patient's lab results. Result diagrams: 07/21/18 09:54 Lab Results 07/21/18 07/21/18 Range/Units 09:54 09:54 WBC 5.2 (4.3-11.1) K/mcL RBC 3.96 (3.82-4.97) M/mcL Hgb 11.6 (11.5-15.4) g/dL Hct 35.7 (35.3-44.9) % MCV 90.2 (83.0-100.0) fL MCH 29.3 (28.0-33.3) pg MCHC 32.5 (31.6-35.5) g/dL RDW 16.7 H (11.5-14.5) % Plt Count 211 (140-400) K/mcL MPV 9.7 (9.4-12.4) fL Immature Gran % 0.0 (0-4) % Seg Neutrophils % 62.5 % Lymphocytes % 24.3 % Monocytes % 8.7 % Eosinophils % 3.5 % Basophils % 1.0 % Neutrophils # 3.3 (1.6-8.9) K/mcL Lymphocytes # 1.3 (0.6-4.6) K/mcL Monocytes # 0.5 (0.0-1.3) K/mcL Eosinophils # 0.2 (0.0-0.6) K/mcL Basophils # 0.1 (0.0-0.2) K/mcL PT 115.3 H* (9.4-12.1) Seconds INR 10.2 H* APTT 60.5 H (26.0-36.0) Seconds - Radiology Data Radiology results reviewed: Yes I reviewed the patient's radiology results. Head CT 07/21/18 10:33 IMPRESSION: 1. No acute intracranial abnormality. D/ / Ronaldo Edwards MD / Ronaldo Edwards MD Interpreting Provider: Ronaldo Edwards MD
[2018-07-21] MEDS ORDERED: Acetaminophen 325 MG TABLET PO ONE (10:03)
[2018-07-21 10:04] LABS: Basophils # 0.1 K/mcL (0.0-0.2); Eosinophils # 0.2 K/mcL (0.0-0.6); Eosinophils % 3.5 %; Hematocrit 35.7 % (35.3-44.9); Hemoglobin 11.6 g/dL (11.5-15.4); Lymphocytes # 1.3 K/mcL (0.6-4.6); Lymphocytes % 24.3 %; Mean Corpuscular HGB Conc 32.5 g/dL (31.6-35.5); Mean Corpuscular Hemoglobin 29.3 pg (28.0-33.3); Mean Corpuscular Volume 90.2 fL (83.0-100.0); Mean Platelet Volume 9.7 fL (9.4-12.4); Monocytes # 0.5 K/mcL (0.0-1.3); Monocytes % 8.7 %; Neutrophils # 3.3 K/mcL (1.6-8.9); Platelet Count 211 K/mcL (140-400); Red Blood Count 3.96 M/mcL (3.82-4.97); Red Cell Distribution Width 16.7 % (11.5-14.5); Segmented Neutrophils % 62.5 %
[2018-07-21 10:16] LABS: Activated Partial Thrombo Time 60.5 Seconds (26.0-36.0)
[2018-07-21 10:30] LABS: INR 10.2; Prothrombin Time 115.3 Seconds (9.4-12.1)
--- NOTE | 2018-07-21 11:12 | Emergency Department Note ---
Disposition Clinical Impression: Elevated INR Disposition: Admitted As Inpatient Condition: Good Referrals: Arnold Purdy [Primary Care Provider] - Forms: ED Satisfaction Letter Time of Disposition: 11:27 General Adult HPI - General Chief complaint: ED Recheck/Abnormal Lab/Rx Stated complaint: Abnormal labs Time Seen by Provider: 07/21/18 09:25 Source: patient Mode of arrival: private vehicle Limitations: no limitations - History of Present Illness Pain Scale: 0 - Related Data Home Medications Medication Instructions Recorded Confirmed Carvedilol [Coreg] 25 mg PO BID 03/23/18 04/06/18 Digoxin [Lanoxin] 125 mcg PO DAILY 03/23/18 04/06/18 Lisinopril [Zestril] 40 mg PO DAILY 03/23/18 04/06/18 Multivit-Minerals/Folic/Ginkgo 1 tab PO DAILY 03/23/18 04/06/18 [One Daily For Women 50+ Adv Tb] Nitroglycerin [Nitrostat] 0.4 mg SL Q5M PRN 03/23/18 03/23/18 [place]-3/Dha/Epa/Fish Oil [Fish Oil 1 tab PO DAILY 03/23/18 03/23/18 1,000 mg Softgel] Pravastatin Sodium [Pravachol] 20 mg PO DAILY 03/23/18 04/06/18 Warfarin [Coumadin] 10 mg PO AD 04/06/18 04/06/18 Previous Rx's Medication Instructions Recorded Furosemide [Lasix] 40 mg PO DAILY #30 tablet 03/24/18 Spironolactone [Aldactone] 25 mg PO DAILY #30 tablet 03/24/18 Allergies Allergy/AdvReac Type Severity Reaction Status Date / Time loratadine [From Claritin] Allergy Palpitation Verified 03/23/18 10:17 s morphine Allergy Hives Verified 03/23/18 10:17 Constitutional: Denies: fever, chills Eyes: Denies: vision change ENT ED: Denies: throat pain, congestion Cardiovascular: Denies: chest pain, palpitations Respiratory: Denies: cough, dyspnea Gastrointestinal: Denies: abdominal pain, melena, hematochezia Genitourinary: Denies: dysuria, hematuria Musculoskeletal: Denies: back pain Integumentary: Denies: abrasion, lesions Neurological: Denies: headache, weakness Hematological/Lymphatic: Reports: easy bruising (on coumadin) Past Medical History - Past Medical History Medical history: Reports: non-contributory, asthma, CHF, hypertension, other Psychiatric history: Reports: no psych history - Social History Smoking Status: Never smoker Smokeless Tobacco Status: No Alcohol use: Reports: none Drug use: Reports: none Physical Exam - General Limitations: no limitations General appearance: alert, in no apparent distress Course Vital Signs Temperature 97.3 F L 07/21/18 09:20 Pulse Rate 90 07/21/18 09:20 Respiratory Rate 16 07/21/18 09:20 Blood Pressure 153/105 07/21/18 09:20 O2 Sat by Pulse Oximetry 94 07/21/18 09:20 Temperature 97.3 F L 07/21/18 09:44 Pulse Rate 90 07/21/18 09:44 Respiratory Rate 16 07/21/18 09:44 Blood Pressure 153/105 07/21/18 09:44 O2 Sat by Pulse Oximetry 94 07/21/18 09:44 Oxygen Delivery Oxygen Delivery Room Air Medical Decision Making - Lab Data Result diagrams: 07/21/18 09:54 Lab Results 07/21/18 07/21/18 Range/Units 09:54 09:54 WBC 5.2 (4.3-11.1) K/mcL RBC 3.96 (3.82-4.97) M/mcL Hgb 11.6 (11.5-15.4) g/dL Hct 35.7 (35.3-44.9) % MCV 90.2 (83.0-100.0) fL MCH 29.3 (28.0-33.3) pg MCHC 32.5 (31.6-35.5) g/dL RDW 16.7 H (11.5-14.5) % Plt Count 211 (140-400) K/mcL MPV 9.7 (9.4-12.4) fL Immature Gran % 0.0 (0-4) % Seg Neutrophils % 62.5 % Lymphocytes % 24.3 % Monocytes % 8.7 % Eosinophils % 3.5 % Basophils % 1.0 % Neutrophils # 3.3 (1.6-8.9) K/mcL Lymphocytes # 1.3 (0.6-4.6) K/mcL Monocytes # 0.5 (0.0-1.3) K/mcL Eosinophils # 0.2 (0.0-0.6) K/mcL Basophils # 0.1 (0.0-0.2) K/mcL PT 115.3 H* (9.4-12.1) Seconds INR 10.2 H* APTT 60.5 H (26.0-36.0) Seconds Attestation Statement - Attestation Attestation: I examined this patient and my medical decision-making was reviewed with the Resident Physician. I agree with the documented findings, disposition and treatment plan as described except to the extent set forth below. 57 year old female prsents to the ED with complaints of elevated INR. She is currently on coaumdin and told that her INR at the coumadin clinic was 8.0. Today is 10 and states that she is otherwise having a headache. Natasha denies any GI bleeding or hemopytosis or chest pain and abdominal pain. HCT is negative for bleed and she is otherwise A/0x3 with stable vitals. We will give her vitamin K at ths time without FFP as she does not have any life threatening bleeding at this time and admit to [facility]
[2018-07-21 12:04] LABS: BUN/Creatinine Ratio 14 (6-26); Blood Urea Nitrogen 10 mg/dL (6-20); Calcium 10.1 mg/dL (8.6-10.3); Carbon Dioxide 23 mEq/L (23-29); Chloride 109 mEq/L (98-107); Digoxin 0.4 ng/mL (0.8-2.0); Glucose 80 mg/dL (70-105); Osmolality,Calculated 286 (280-300); Potassium 3.9 mEq/L (3.5-5.1); Sodium 139 mEq/L (136-145); eGFR For Non-African Americans > 60 (> 60)
[2018-07-21] MEDS ORDERED: Nitroglycerin 0.4 MG TAB.SUBL SL PRN (13:32)
[2018-07-21] MEDS ORDERED: Naloxone 0.4 MG/ML INJ IVP PRN (13:33)
--- NOTE | 2018-07-21 14:20 | Internal Med History&Physical ---
Date of Encounter: 07/21/18 Time of Encounter: 13:30 Internal Medicine - H&P: HPI Chief complaint: Abnormal lab Admitted From: Home History of present illness: Ms. Ojeda is a 57 year old female with past medical history of rheumatic fever, status post mitral valve replacement ([employer] mechanical valve in 1992, follows with [facility]), heart failure with reduced EF status post ICD, presented from anticoagulating clinic due to abnormal INR. She states that she was seen in the clinic today and was noted to have a fingerstick INR of 8. Otherwise, denies any symptoms of anemia including chest pain, shortness of breath, headache, lightheadedness, or palpitation. No melena, hematochezia, bright red blood per rectum, hematemesis, or hemoptysis. Does not report any epistaxis. No orthopnea, PND, or leg swelling. The only new medication that she was started on is Imdur, about 2 weeks ago. She states that she is supposed take Coumadin 5 mg 3 times a week and 7.5 mg 4 times a week but may have mixed up the dosage. No significant change in her diet. In the ER, she was afebrile and hemodynamically stable. Other than elevated INR of 10.2, lab works were unremarkable. CT head was done to rule out intracranial hemorrhage and was negative. She was given IV vitamin K 5 mg and admitted for further management. Past Med Surg Social Fam HX - Past Medical History Attestation: Yes The following information was validated with the patient. 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 open heart surgery (mitral valve replacement) - Social History Smoking Status: Never smoker Smokeless Tobacco Status: No Alcohol use: none Drug use: none - Family History Father Living Status: Mother Living Status: Hx Family Respiratory Disorders: Yes Sister Hx Family Cardiac Disorders: Yes Brother Hx Family Cardiac Disorders: Yes Hx Family Cancer: Yes Internal Medicine - H&P: Meds Carvedilol [Coreg] 25 mg PO BID 03/23/18 [History] Digoxin [Lanoxin] 125 mcg PO DAILY 03/23/18 [History] Lisinopril [Zestril] 40 mg PO DAILY 03/23/18 [History] Multivit-Minerals/Folic/Ginkgo [One Daily For Women 50+ Adv Tb] 1 tab PO DAILY 03/23/18 [History] Nitroglycerin [Nitrostat] 0.4 mg SL Q5M PRN 03/23/18 [History] [place]-3/Dha/Epa/Fish Oil [Fish Oil 1,000 mg Softgel] 1 tab PO DAILY 03/23/18 [ History] Pravastatin Sodium [Pravachol] 20 mg PO DAILY 03/23/18 [History] Furosemide [Lasix] 40 mg PO DAILY #30 tablet 03/24/18 [Rx] Spironolactone [Aldactone] 25 mg PO DAILY #30 tablet 03/24/18 [Rx] Warfarin [Coumadin] 10 mg PO AD 04/06/18 [History] 3 Allergy/AdvReac Type Severity Reaction Status Date / Time loratadine [From Claritin] Allergy Palpitation Verified 03/23/18 10:17 s morphine Allergy Hives Verified 03/23/18 10:17 All Systems PM: A 10-system review of systems was performed and is negative for pertinent findings except as documented above in the HPI. - Constitutional Vitals: Temp Pulse Resp BP Pulse Ox 96.8 F L 71 16 156/79 96 07/21/18 12:58 07/21/18 12:58 07/21/18 12:58 07/21/18 12:58 07/21/18 12:58 Exam: General: Alert and oriented, not in acute distress. HEENT:EOM, pupils equal, round and reactive. Cardiovascular: mechanical heart sound, no rales Lungs: clear to auscultation, no wheezes/rales Abdomen:Soft, non-tender, no rigidity. Extremities:No deformity or swelling Neurological: CN II-XII intact, no focal deficits Skin:Normal color, no rash, no lesions. No ecchymosis Pulses:Carotid and radial pulses normal +2. Rest of the physical exam is non contributory Internal Med - H&P Results - Labs CBC & Chem 7: 07/21/18 09:54 07/21/18 09:54 - Assessment and plan (1) Elevated INR Current Visit: Yes Status: Acute Assessment and plan: Possibly due to intake of wrong Coumadin tablets no signs or symptoms of bleeding INR 10.2, s/p IV Vit K [address] head negative for bleed repeat INR tomorrow (2) S/P MVR (mitral valve replacement) Current Visit: No Status: Acute Assessment and plan: Management per INR as above (3) Heart failure with reduced ejection fraction, NYHA class II Current Visit: Yes Status: Acute Assessment and plan: Not in exacerbation Continue home meds including beta alma rosa, Aldactone, Lasix, and digoxin. (4) DVT prophylaxis Current Visit: Yes Status: Acute Assessment and plan: Supratherapeutic INR SCD - Time Spent With Patient Total time spent is greater than 50% in coordination of care (as documented) at patient's floor/unit and/or counseling patient:
[2018-07-21] MEDS: Acetaminophen 325 MG TABLET PO PRN (18:31)
[2018-07-21] MEDS: Lisinopril 20 MG TABLET PO SCH (20:52)
[2018-07-21] MEDS: Ketorolac 15 MG/ML VIAL IVP PRN (20:53)
[2018-07-22 06:35] LABS: INR 2.5; Prothrombin Time 27.9 Seconds (9.4-12.1)
[2018-07-22] MEDS: Furosemide 40 MG TABLET PO SCH (08:06)
[2018-07-22] MEDS: Spironolactone 25 MG TABLET PO SCH (08:06)
[2018-07-22] MEDS: *HR* Digoxin 0.125 MG TABLET PO SCH (08:06)
[2018-07-22] MEDS: Multivit/Ca/Min/Fe/FA 1 TAB TABLET PO SCH (08:07)
[2018-07-22] MEDS ORDERED: NON-FORMULARY MEDICATION 1 EACH EACH (Omega-3/Dha/Epa/Fish Oil [Fish Oil 1,000 Mg Softgel] PO SCH (09:00)
[2018-07-22] MEDS ORDERED: Lisinopril 20 MG TABLET PO SCH (09:00)
[2018-07-22] MEDS: Ketorolac 15 MG/ML VIAL IVP PRN ×3 (09:48→23:27)
--- NOTE | 2018-07-22 13:24 | Discharge Summary ---
- NOTES TO OUTPATIENT PROVIDER Notes to Outpatient Provider: INR 2.5 on discharge. Pt instructed to take Warfarin 2.5mg po daily until she follows up with the coumadin clinic on Wednesday 07/25. Date of Encounter: 07/22/18 Time of Encounter: 10:05 - Discharge Diagnosis (1) S/P MVR (mitral valve replacement) Priority: Secondary Status: Acute Assessment and Plan: Mitral valve replaced, pt had rheumatic fever as a child. Warfarin dosed at [facility]. (2) Elevated INR Priority: Secondary Status: Resolved Assessment and Plan: Possibly due to intake of wrong Coumadin tablets no signs or symptoms of bleeding INR 2.[address] head negative for bleed Discussed Warfin dosing with pharmacy, 2.5mg po daily until she follows up with the Coumadin clinic in 3 days. pt already has appointment. (3) Heart failure with reduced ejection fraction, NYHA class II Priority: Secondary Status: Chronic Assessment and Plan: Not in acute exacerbation Continue home meds including beta alma rosa, Aldactone, Lasix, and digoxin. (4) DVT prophylaxis Priority: Secondary Status: Chronic Assessment and Plan: Supratherapeutic INR- resolved SCD ordered. INR returned to [facility] 07/22. Plan as above. (5) Pleural effusion Priority: Secondary Status: Acute Assessment and Plan: Incidental finding on scapula xray. Small right pleural effusion. Pt in no distress, no supplemental 02, lungs clear. Limited echo Lasix 20mg IV x 2 doses 02 if needed to maintain sats > 92% Hospital course: Ms. Ojeda is a 57 year old female with PMH of mitral valve replacement, systolic CHF, HTN, ICD. Pt was sent from Coumadin clinic with elevated INR. Pt was given Vitamin K 5mg IV, INR 2.5 this a.m. Pt will be discharged with Coumadin 2.5mg po daily until she follows up with coumadin clinic in 3 days. Pt also reports 4-6 week history of right scapula pain, area is tender to palpation. No injury. Pt will be given lidoderm patches and will need to follow up with PCP for more workup if needed. Discharge discussed with: patient - Time Spent with Patient Total time spent providing and/or coordinating discharge services: Less than 30 minutes - Discharge Medications Prescriptions: Lidocaine Patch [Lidoderm 5% patch] 1 each TP DAILY PRN #10 adh..patch PRN Reason: Pain Warfarin [Coumadin] 2.5 mg PO 1800 #3 tablet Home Medications: Carvedilol [Coreg] 25 mg PO BID 03/23/18 [History] Digoxin [Lanoxin] 125 mcg PO DAILY 03/23/18 [History] Lisinopril [Zestril] 40 mg PO DAILY 03/23/18 [History] Multivit-Minerals/Folic/Ginkgo [One Daily For Women 50+ Adv Tb] 1 tab PO DAILY 03/23/18 [History] Nitroglycerin [Nitrostat] 0.4 mg SL Q5M PRN 03/23/18 [History] [place]-3/Dha/Epa/Fish Oil [Fish Oil 1,000 mg Softgel] 1 tab PO DAILY 03/23/18 [ History] Pravastatin Sodium [Pravachol] 20 mg PO DAILY 03/23/18 [History] Furosemide [Lasix] 40 mg PO DAILY #30 tablet 03/24/18 [Rx] Spironolactone [Aldactone] 25 mg PO DAILY #30 tablet 03/24/18 [Rx] Lidocaine Patch [Lidoderm 5% patch] 1 each TP DAILY PRN #10 adh..patch 07/22/18 [Rx] Warfarin [Coumadin] 2.5 mg PO 1800 #3 tablet 07/22/18 [Rx] Allergies/Adverse Reactions: 3 Allergy/AdvReac Type Severity Reaction Status Date / Time loratadine [From Claritin] Allergy Palpitation Verified 03/23/18 10:17 s morphine Allergy Hives Verified 03/23/18 10:17 Date of admission: 07/21/18 13:57 Primary care physician: Arnold Purdy Discharging clinician: Marj Teixeira Anticipated date of discharge: 07/22/18 - Constitutional Vitals: Temp Pulse Resp BP Pulse Ox 97.5 F L 68 13 132/85 97 07/22/18 11:41 07/22/18 11:41 07/22/18 11:41 07/22/18 11:41 07/22/18 11:41 General appearance: Present: cooperative, A&O X 3, pleasant, no acute distress, answers questions appropriately Exam: as above. - Head Head exam: Present: atraumatic, normal inspection, normocephalic - Eye Eye exam: Present: normal appearance, conjuntiva pink, sclera anicteric - Neck Neck exam general surgery: Present: supple, trachea midline. Absent: lymphadenopathy, tenderness - Respiratory Respiratory exam: Present: CTAB. Absent: accessory muscle use, chest wall tenderness, rales, respiratory distress, rhonchi, wheezes - Cardiovascular Cardiovascular exam: Present: RRR, +S1, +S2. Absent: diastolic murmur, gallop, rubs, systolic murmur - GI/Abdominal GI/Abdominal exam: Present: normal bowel sounds, soft. Absent: distended, hepatomegaly, tenderness, no peritoneal signs - Extremities Exam Extremities exam: Present: normal capillary refill, normal inspection, warm, radial pulses palpable and symmetrical. Absent: calf tenderness, cyanotic, pedal edema, tenderness - Expanded Upper Extremities Exam General: Present: normal inspection Shoulder exam: Present: full ROM, tenderness Vascular exam: Present: normal capillary refill, radial pulse right. Absent: vascular compromise - Neurological Exam Neurological exam: Present: alert, oriented X3, no focal deficits, strengths equal and symetr throughout. Absent: facial droop, speech deficit - Skin Skin exam: Present: dry, intact, normal color, warm. Absent: rash - Patient Status Disposition: Home, Self-Care Condition: Good Overall status at discharge: patient is back to baseline - Discharge Instructions Instructions: Warfarin (By mouth), Lidocaine Patch (On the skin), Chronic Hypertension (DC), Elevated INR (DC) Follow Up With: Arnold Purdy [Primary Care Provider] - Additional Instructions: Follow up with the coumadin clinic on Tuesday as scheduled. Take your medications as directed, get your new prescriptions filled today and take as directed. Return to your normal diet and activities as tolerated. - Diet and Activity Activity: increase activity as tolerated Diet: advance to your usual diet
[2018-07-22] MEDS: Furosemide 20 MG/2 ML VIAL IVP SCH ×2 (17:32→20:32)
[2018-07-22] MEDS ORDERED: traMADol 50 MG TABLET PO ONE (19:50)
[2018-07-22] MEDS: Lisinopril 20 MG TABLET PO SCH (20:30)
[2018-07-23 09:34] LABS: Basophils % 0.6 %; Eosinophils # 0.2 K/mcL (0.0-0.6); Eosinophils % 3.2 %; Hematocrit 35.5 % (35.3-44.9); Hemoglobin 11.4 g/dL (11.5-15.4); Immature Granulocytes % 0.2 % (0-4); Lymphocytes % 21.2 %; Mean Corpuscular HGB Conc 32.1 g/dL (31.6-35.5); Mean Corpuscular Hemoglobin 28.8 pg (28.0-33.3); Mean Corpuscular Volume 89.6 fL (83.0-100.0); Mean Platelet Volume 9.9 fL (9.4-12.4); Monocytes # 0.4 K/mcL (0.0-1.3); Monocytes % 7.9 %; Neutrophils # 3.1 K/mcL (1.6-8.9); Platelet Count 204 K/mcL (140-400); Red Blood Count 3.96 M/mcL (3.82-4.97); Red Cell Distribution Width 16.6 % (11.5-14.5); Segmented Neutrophils % 66.9 %
[2018-07-23 09:38] LABS: Alanine Aminotransferase 16 Units/L (7-52); Albumin 3.8 g/dL (3.5-5.7); Albumin/Globulin Ratio 1.2 (1.1-2.2); Alkaline Phosphatase 108 Units/L (34-104); Aspartate Amino Transferase 24 Units/L (13-39); BUN/Creatinine Ratio 21 (6-26); Bilirubin,Total 1.9 mg/dL (0.3-1.0); Blood Urea Nitrogen 14 mg/dL (6-20); Calcium 9.8 mg/dL (8.6-10.3); Carbon Dioxide 26 mEq/L (23-29); Chloride 105 mEq/L (98-107); Globulin 3.3 g/dL (2.4-3.5); Glucose 102 mg/dL (70-105); Lipase 9 Units/L (11-82); Osmolality,Calculated 285 (280-300); Potassium 3.8 mEq/L (3.5-5.1); Sodium 137 mEq/L (136-145); Total Protein 7.1 g/dL (6.4-8.9); eGFR For Non-African Americans > 60 (> 60)
[2018-07-23 09:50] LABS: Prothrombin Time 22.8 Seconds (9.4-12.1)
[2018-07-23] MEDS: Ketorolac 15 MG/ML VIAL IVP PRN (10:05)
[2018-07-23] MEDS: Multivit/Ca/Min/Fe/FA 1 TAB TABLET PO SCH (10:06)
[2018-07-23] MEDS: *HR* Digoxin 0.125 MG TABLET PO SCH (10:06)
[2018-07-23] MEDS: Furosemide 40 MG TABLET PO SCH (10:06)
[2018-07-23] MEDS: Spironolactone 25 MG TABLET PO SCH (10:06)
[2018-07-23] MEDS ORDERED: Ondansetron ODT 4 MG TAB.RAPDIS SL PRN (10:45)
[2018-07-23] MEDS ORDERED: Isovue-370 500 ML INFUS..BTL IV ONE (10:59)
[2018-07-23] MEDS ORDERED: 0.9 % Sodium Chloride 1,000 ML IVC SCH (11:00)
--- NOTE | 2018-07-23 12:03 | Internal Med Progress Note ---
Hospitalist Progress Note - Encounter Date of Encounter: 07/23/18 Time of Encounter: 09:00 - Subjective Interval History: Patient was admitted for supratherapeutic INR. She was given vitamin K and IR get down to 2.5 yesterday. Patient was planned to discharge home however she developed right back pain, worsening on deep breath. Patient also has nausea and vomited once. No blood or coffee-ground emesis in the vomiting. Patient is still has nausea today. No further vomiting. Denies abdominal pain or diarrhea. No fever, no cough. Still complaint right-sided back pain. Denies chest pain or shortness of breath. - Exam Vitals: Temp Pulse Resp BP Pulse Ox 97.7 F 73 15 137/88 94 07/23/18 08:40 07/23/18 08:40 07/23/18 08:40 07/23/18 08:40 07/23/18 08:40 Exam: Patient is awake alert, oriented 3. In no acute distress. HEENT: NC/AT, PERRL Neck: Supple, no LAD Lungs: CTA, no wheezing/crackles, right side back chest wall tenderness. Heart: S1S2, RRR, PPM/AICD in place Abd: Soft, NT, BS normal in 4Q Ext: No pedal edema Neuro: No focal deficit. - Assessment and Plan (1) S/P MVR (mitral valve replacement) Current Visit: No Status: Acute Assessment and Plan: Mitral valve replaced, pt had rheumatic fever as a child. Cont coumadin, goal 2.5-3.5, now INR 2.0 will bridge with lovenox. (2) Elevated INR Current Visit: Yes Status: Resolved Assessment and Plan: Improved. Closely monitor INR. Pharmacy to dose coumadin. (3) Heart failure with reduced ejection fraction, NYHA class II Current Visit: Yes Status: Chronic Assessment and Plan: Not in acute exacerbation Continue home meds including beta alma rosa, Aldactone, Lasix, and digoxin. (4) DVT prophylaxis Current Visit: Yes Status: Chronic Assessment and Plan: Supratherapeutic INR- resolved SCD ordered. (5) Right-sided chest pain Current Visit: Yes Status: Acute Assessment and Plan: Mailnly on right back. Pleural like pain. With nausea and vomited once. - Need to rule out ACS although less likely per presentation, continue cardiac monitoring, track 3 sets of troponin. - Patient has elevated d-dimer, will order CTA to rule out PE. - Time Spent with Patient Total time spent is greater than 50% in coordination of care (as documented) at patient's floor/unit and/or counseling patient: 30 minutes 25 - 35 minutes Internal Medicine: Result - Labs CBC & Chem 7: 07/23/18 08:59 07/23/18 08:59 Labs: Short CBC 07/23/18 Range/Units 08:59 WBC 4.7 (4.3-11.1) K/mcL Hgb 11.4 L (11.5-15.4) g/dL Hct 35.5 (35.3-44.9) % Plt Count 204 (140-400) K/mcL Neutrophils # 3.1 (1.6-8.9) K/mcL BMP 07/23/18 08:59 Sodium 137 Potassium 3.8 Chloride 105 Carbon Dioxide 26 BUN 14 Creatinine 0.67 Glucose 102 Calcium 9.8 Cardiac Enzymes 07/23/18 Range/Units 08:59 Troponin I < 0.03 (< 0.04) ng/mL Liver Function 07/23/18 Range/Units 08:59 Total Bilirubin 1.9 H (0.3-1.0) mg/dL AST 24 (13-39) Units/L ALT 16 (7-52) Units/L Alkaline Phosphatase 108 H (34-104) Units/L Albumin 3.8 (3.5-5.7) g/dL - ABG Interpretation ABG results: PT/INR, D-dimer PT 22.8 Seconds (9.4-12.1) H 07/23/18 08:59 D-Dimer 836 ng/mLFEU (0-500) H 07/23/18 08:59 - Impressions Impressions Scapula X-Ray 07/22/18 12:24 IMPRESSION: Scapula is unremarkable. Small right pleural effusion D/ / Amada Dang MD / Amada Dang MD Interpreting Provider: Amada Dang MD Consult Discharge Plan - Plan Instructions: Warfarin (By mouth), Lidocaine Patch (On the skin), Chronic Hypertension (DC), Elevated INR (DC) Additional Instructions: Follow up with the coumadin clinic on Tuesday as scheduled. Take your medications as directed, get your new prescriptions filled today and take as directed. Return to your normal diet and activities as tolerated. Referrals: Arnold Purdy [Primary Care Provider] - Prescriptions: Lidocaine Patch [Lidoderm 5% patch] 1 each TP DAILY PRN #10 adh..patch PRN Reason: Pain Warfarin [Coumadin] 2.5 mg PO 1800 #3 tablet
[2018-07-23] MEDS ORDERED: traMADol 50 MG TABLET PO PRN (12:39)
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
[2018-07-23 15:51] LABS: HIV-1&2 Antibody & p24 Ag Nonreactive (Nonreactive); Hepatitis B Surface Antigen Nonreactive (Nonreactive)
[2018-07-23] MEDS: Acetaminophen 325 MG TABLET PO PRN (16:18)
[2018-07-23] MEDS: *HR* Enoxaparin 80 MG/0.8 ML SYRINGE SQ SCH (17:26)
[2018-07-23] MEDS ORDERED: *HR* Warfarin 5 MG TABLET PO ONE (18:00)
[2018-07-23] MEDS ORDERED: Warfarin perPT PO PRN (18:00)
[2018-07-23] MEDS: Lisinopril 20 MG TABLET PO SCH (19:40)
[2018-07-23] MEDS ORDERED: OXYCODONE Oral CONC 10 MG/0.5 ML ORAL.SYG SL ONE (20:45)
[2018-07-24 01:10] LABS: Basophils % 0.8 %; Eosinophils # 0.1 K/mcL (0.0-0.6); Eosinophils % 2.6 %; Hematocrit 34.1 % (35.3-44.9); Hemoglobin 11.1 g/dL (11.5-15.4); Immature Granulocytes % 0.2 % (0-4); Lymphocytes # 1.5 K/mcL (0.6-4.6); Lymphocytes % 29.5 %; Mean Corpuscular HGB Conc 32.6 g/dL (31.6-35.5); Mean Corpuscular Hemoglobin 29.1 pg (28.0-33.3); Mean Corpuscular Volume 89.5 fL (83.0-100.0); Mean Platelet Volume 10.1 fL (9.4-12.4); Monocytes # 0.4 K/mcL (0.0-1.3); Monocytes % 7.5 %; Platelet Count 208 K/mcL (140-400); Red Blood Count 3.81 M/mcL (3.82-4.97); Red Cell Distribution Width 16.6 % (11.5-14.5); Segmented Neutrophils % 59.4 %
[2018-07-24 01:13] LABS: BUN/Creatinine Ratio 18 (6-26); Blood Urea Nitrogen 14 mg/dL (6-20); Calcium 9.6 mg/dL (8.6-10.3); Carbon Dioxide 27 mEq/L (23-29); Chloride 107 mEq/L (98-107); Glucose 122 mg/dL (70-105); Osmolality,Calculated 288 (280-300); Potassium 3.4 mEq/L (3.5-5.1); Sodium 138 mEq/L (136-145); eGFR For Non-African Americans > 60 (> 60)
[2018-07-24 01:17] LABS: INR 2.5
[2018-07-24 02:35] LABS: Hepatitis C Virus Antibody Nonreactive (Nonreactive)
[2018-07-24] MEDS: *HR* Enoxaparin 80 MG/0.8 ML SYRINGE SQ SCH (04:34)
[2018-07-24] MEDS: Furosemide 40 MG TABLET PO SCH (08:26)
[2018-07-24] MEDS: Multivit/Ca/Min/Fe/FA 1 TAB TABLET PO SCH (08:26)
[2018-07-24] MEDS: *HR* Digoxin 0.125 MG TABLET PO SCH (08:26)
[2018-07-24] MEDS: Spironolactone 25 MG TABLET PO SCH (08:26)
--- NOTE | 2018-07-24 13:32 | Discharge Summary ---
<Keisha Alegre - Last Filed: 07/24/18 16:18> - NOTES TO OUTPATIENT PROVIDER Notes to Outpatient Provider: Monitor INR closely Orders not resulted at time of discharge: Pending orders 07/23/18 08:18 EKG [ECG 12 lead ECG] [ECG] Stat 07/24/18 10:59 CT angio chest [CT] Stat 07/25/18 04:00 PT/INR [Prothrombin Time INR] [COAG] AM 0400 07/26/18 04:00 PT/INR [Prothrombin Time INR] [COAG] AM 0400 07/27/18 04:00 PT/INR [Prothrombin Time INR] [COAG] AM 0400 Date of Encounter: 07/24/18 Time of Encounter: 09:45 - Discharge Diagnosis (1) Pain aggravated by breathing Priority: Secondary Status: Acute (2) Elevated INR Priority: Primary Status: Resolved (3) HTN (hypertension) Priority: Secondary Status: Chronic Qualifiers: Hypertension type: essential hypertension Qualified Code(s): I10 - Essential (primary) hypertension Hospital course: ADMISSION HPI: Ms. Ojeda is a 57 year old female with past medical history of rheumatic fever, status post mitral valve replacement ([employer] mechanical valve in 1992, follows with [facility]), heart failure with reduced EF status post ICD, presented from anticoagulating clinic due to abnormal INR. She states that she was seen in the clinic today and was noted to have a fingerstick INR of 8. Otherwise, denies any symptoms of anemia including chest pain, shortness of breath, headache, lightheadedness, or palpitation. No melena, hematochezia, bright red blood per rectum, hematemesis, or hemoptysis. Does not report any epistaxis. No orthopnea, PND, or leg swelling. The only new medication that she was started on is Imdur, about 2 weeks ago. She states that she is supposed take Coumadin 5 mg 3 times a week and 7.5 mg 4 times a week but may have mixed up the dosage. No significant change in her diet. In the ER, she was afebrile and hemodynamically stable. Other than elevated INR of 10.2, lab works were unremarkable. CT head was done to rule out intracranial hemorrhage and was negative. She was given IV vitamin K 5 mg and admitted for further management. HOSPITAL COURSE: Patient's initial INR 10.2 dropped down to 2.5 after vitamin K in the ED. Patient then began to develop back pain/right chest pain occurring with inspiration. Troponin was negative x3 and d-dimer was 836. CTA was negative for PE. Pain was most likely due to a dysfunctional rib/musculoskeletal pain as pain was reproducible. Patient was discharged home with instructed to continue home regiment of Coumadin and to double check which days she is supposed to take each dose. Patient was instructed to follow-up with the coumadin clinic in 3 days. Vitals were stable and she was discharged home with instructions to f/u with her PCP in 3-5 days. Discharge discussed with: patient - Time Spent with Patient Total time spent providing and/or coordinating discharge services: - Discharge Medications Prescriptions: Lidocaine Patch [Lidoderm 5% patch] 1 each TP DAILY 7 Days #7 adh..patch Tramadol HCl [Ultram] 50 mg PO BID PRN 7 Days #14 tab PRN Reason: Pain Home Medications: Carvedilol [Coreg] 25 mg PO BID 03/23/18 [History] Digoxin [Lanoxin] 125 mcg PO DAILY 03/23/18 [History] Lisinopril [Zestril] 40 mg PO DAILY 03/23/18 [History] Multivit-Minerals/Folic/Ginkgo [One Daily For Women 50+ Adv Tb] 1 tab PO DAILY 03/23/18 [History] Nitroglycerin [Nitrostat] 0.4 mg SL Q5M PRN 03/23/18 [History] [place]-3/Dha/Epa/Fish Oil [Fish Oil 1,000 mg Softgel] 1 tab PO DAILY 03/23/18 [ History] Pravastatin Sodium [Pravachol] 20 mg PO DAILY 03/23/18 [History] Furosemide [Lasix] 40 mg PO DAILY #30 tablet 03/24/18 [Rx] Spironolactone [Aldactone] 25 mg PO DAILY #30 tablet 03/24/18 [Rx] Lidocaine Patch [Lidoderm 5% patch] 1 each TP DAILY 7 Days #7 adh..patch [Rx] Tramadol HCl [Ultram] 50 mg PO BID PRN 7 Days #14 tab 07/24/18 [Rx] Warfarin [Coumadin] 07/24/18 [History] Allergies/Adverse Reactions: 3 Allergy/AdvReac Type Severity Reaction Status Date / Time loratadine [From Claritin] Allergy Palpitation Verified 03/23/18 10:17 s morphine Allergy Hives Verified 03/23/18 10:17 Date of admission: 07/21/18 13:57 Primary care physician: Arnold Purdy Discharging clinician: Edmar Story Anticipated date of discharge: 07/24/18 - Constitutional Vitals: Temp Pulse Resp BP Pulse Ox 98.3 F 69 16 130/82 96 07/24/18 11:18 07/24/18 11:18 07/24/18 11:18 07/24/18 11:18 07/24/18 11:18 General appearance: Present: cooperative, A&O X 3, pleasant, no acute distress, answers questions appropriately Exam: Constitutional: Alert, in no acute distress, well nourished, well developed. Head: Normocephalic, atraumatic, normal contour and symmetric, no masses, lesions or scars Heart: Normal, regular rate and rhythm, no murmurs Lungs: Clear to auscultation, no wheezes, rales, or rhonchi Abdomen: Soft, nondistended, nontender, and no masses palpable, bowel sounds present and normal, no guarding or rigidity. Back: excoriations on left thoracic region, pain reproducible on left side along inferior scapular border, no redness or increase warmth noted Extremities: No clubbing, cyanosis, or edema, radial pulse +2/4, capillary refill <2sec. Skin: Skin warm and dry, no lesions, no rashes, no jaundice Neurologic: Cranial nerves II through XII grossly intact, no focal deficits, strength within normal limits in all extremities Psych: Cooperative with exam, good eye contact, cognitive function intact, judgment good insight good, speech clear, thought process logical, and goal directed - Patient Status Disposition: Home, Self-Care Condition: Good Functional capacity at discharge: independent ambulation Overall status at discharge: patient is progressing back to baseline - Discharge Instructions Instructions: Warfarin (By mouth), Lidocaine Patch (On the skin), Chronic Hypertension (DC), Elevated INR (DC) Follow Up With: Arnold Purdy [Primary Care Provider] - Additional Instructions: Follow up with the coumadin clinic on . Continue on your current home regiment of Coumadin after double checking which days you are supposed to take the 7.5mg and 5mg. Return to your normal diet and activities as tolerated. If back continues to hurt try heat or ice initially to ease pain. Please return to the ED if you have any concerns. Please schedule an appointment with her primary care physician in 3-5 days. - Diet and Activity Activity: as per physical therapy Diet: advance to your usual diet <Edmar Story - Last Filed: 07/24/18 16:40> Orders not resulted at time of discharge: Pending orders 07/23/18 08:18 EKG [ECG 12 lead ECG] [ECG] Stat 07/25/18 04:00 PT/INR [Prothrombin Time INR] [COAG] AM 0400 07/26/18 04:00 PT/INR [Prothrombin Time INR] [COAG] AM 0400 07/27/18 04:00 PT/INR [Prothrombin Time INR] [COAG] AM 0400 Date of Encounter: 07/24/18 - Discharge Diagnosis (1) S/P MVR (mitral valve replacement) Status: Acute (2) Elevated INR Status: Resolved (3) Heart failure with reduced ejection fraction, NYHA class II Status: Chronic (4) DVT prophylaxis Status: Chronic (5) Right-sided chest pain Status: Acute Hospital course: Ms. Ojeda is a 57 year old female - Time Spent with Patient Total time spent providing and/or coordinating discharge services: Date of admission: 07/21/18 13:57 Primary care physician: Arnold Purdy - Constitutional Vitals: Temp Pulse Resp BP Pulse Ox 97.4 F L 77 16 131/76 98 07/24/18 15:57 07/24/18 15:57 07/24/18 15:57 07/24/18 15:57 07/24/18 15:57 - Patient Status Functional capacity at discharge: independent ambulation Overall status at discharge: patient is progressing back to baseline - Attending Attestation I have seen and examined this patient independently. I have discussed with resident physician Dr. Alegre regarding the discharge and follow up plan. Agree with the documentation. Pt has supratherapeutic INR, possibly due to she mixed up her dosage. She said she is on this dosage and doing well for months. Will resume her home dosage now but advise her to check more frequently (schedule an anticoagulation clinic appointment in 3 days). Pt shows agreement. Pt also has right side chest pain, more like chest wall pain. Trop negative x 3, CTA negative for PE. Will d/c pt home on pain meds (tramadol and lidocaine patch), not prescribe NSAID because pt just had contrast CT, concern for renal injury. Pt was encouraged to fully hydrate herself.
[2018-07-24] MEDS: Acetaminophen 325 MG TABLET PO PRN (15:34)
[2018-07-24 15:58] VITALS: BP 131/76
[2018-07-24] MEDS ORDERED: *HR* Warfarin 5 MG TABLET PO ONE (18:00)
--- NOTE | 2018-07-26 22:00 | Electrocardiograph Report ---
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
== END 2018-07-24 17:55 | disposition home or self-care (01) | DRG 948 ==
LOC: EMEROOARM 09:18 → 3BNU 09:18 → SUATTDRO 11:53 → 3BNU 12:41
PROVIDERS: ADMIT Student in an Organized Health Care Education/Training Program; ATTEND Internal Medicine

== ENCOUNTER 2019-05-08 10:29 | Inpatient (IN) ==
[2019-05-08 11:11] LABS: Basophils % 0.8 %; Eosinophils # 0.1 K/mcL (0.0-0.6); Eosinophils % 1.5 %; Hematocrit 40.1 % (35.3-44.9); Hemoglobin 12.8 g/dL (11.5-15.4); Lymphocytes # 1.1 K/mcL (0.6-4.6); Lymphocytes % 22.8 %; Mean Corpuscular HGB Conc 31.9 g/dL (31.6-35.5); Mean Corpuscular Hemoglobin 30.3 pg (28.0-33.3); Mean Corpuscular Volume 94.8 fL (83.0-100.0); Mean Platelet Volume 9.7 fL (9.4-12.4); Monocytes # 0.4 K/mcL (0.0-1.3); Monocytes % 8.7 %; Neutrophils # 3.1 K/mcL (1.6-8.9); Platelet Count 219 K/mcL (140-400); Red Blood Count 4.23 M/mcL (3.82-4.97); Red Cell Distribution Width 17.3 % (11.5-14.5); Segmented Neutrophils % 66.2 %; White Blood Count 4.7 K/mcL (4.3-11.1)
[2019-05-08 11:30] LABS: BUN/Creatinine Ratio 15 (6-26); Blood Urea Nitrogen 10 mg/dL (6-20); Calcium 10.6 mg/dL (8.6-10.3); Carbon Dioxide 23 mEq/L (23-29); Chloride 107 mEq/L (98-107); Glucose 97 mg/dL (70-105); Osmolality,Calculated 289 (280-300); Potassium 3.9 mEq/L (3.5-5.1); Sodium 140 mEq/L (136-145); eGFR For African Americans > 60 (> 60); eGFR For Non-African Americans > 60 (> 60)
[2019-05-08 11:31] LABS: Prothrombin Time 22.7 Seconds (9.4-12.1)
--- NOTE | 2019-05-08 11:33 | Emergency Department Note ---
Disposition Clinical Impression: Elevated brain natriuretic peptide (BNP) level, Elevated troponin, NSTEMI (non- ST elevated myocardial infarction) CHF exacerbation Qualifiers: Heart failure type: unspecified Qualified Code(s): I50.9 - Heart failure, unspecified Congestive heart failure Qualifiers: Heart failure type: unspecified Heart failure chronicity: unspecified Qualified Code(s): I50.9 - Heart failure, unspecified Disposition: Admitted As Inpatient Condition: Fair Referrals: NONE,PCP [Primary Care Provider] - Forms: ED Satisfaction Letter Time of Disposition: 12:10 SOB HPI - General Chief Complaint: ED Chest Pain Stated Complaint: SOB, Chest Tightness Time Seen by Provider: 05/08/19 10:57 Source: patient, family Mode of arrival: private vehicle Limitations: no limitations Nursing Notes Reviewed: Yes Vital Signs Reviewed: Yes - History of Present Illness Patient notes dyspnea over the past several days. Dyspnea is with exertion. She does note a mild productive cough and low-grade fever. She admits to chest tightness with exertion. She also notes edema of her lower extremities bilaterally She has a history of rheumatic fever for which she underwent mitral valve replacement and takes Coumadin. Pt Subjective Complaint: shortness of breath Onset (ago): day(s) Severity: moderate Consistency/Duration: intermittent Worsens with: exertion Associated symptoms: Reports: chest pain, fever, cough, sputum production, other (Edema) Treatment prior to arrival: none - Related Data Home Medications Medication Instructions Recorded Confirmed Cod Liver Oil 1 each PO DAILY 01/21/19 01/22/19 Furosemide [Lasix] 40 mg PO DAILY 01/21/19 01/22/19 Lisinopril [Zestril] 40 mg PO DAILY 01/21/19 01/22/19 Nitroglycerin [Nitrostat] 0.4 mg SL PRN PRN 01/21/19 01/22/19 Pravastatin Sodium [Pravachol] 20 mg PO DAILY 01/21/19 01/22/19 Warfarin Sodium 5 mg PO DAILY 01/21/19 01/22/19 Multivit with Calcium,Iron,Min 1 tab PO DAILY 01/22/19 01/22/19 [One Daily Women's] Omeprazole [PriLOSEC] 40 mg PO DAILY PRN 01/22/19 01/22/19 Allergies Allergy/AdvReac Type Severity Reaction Status Date / Time loratadine [From Claritin] Allergy Palpitation Verified 01/21/19 11:36 s morphine Allergy Rash Verified 01/21/19 11:36 All systems ED: reviewed and negative except as stated. Constitutional: Reports: fever Eyes: Reports: as per HPI ENT ED: Reports: as per HPI Cardiovascular: Reports: chest pain, dyspnea on exertion, edema Respiratory: Reports: cough, dyspnea Gastrointestinal: Reports: as per HPI Genitourinary: Reports: as per HPI Musculoskeletal: Reports: as per HPI Integumentary: Reports: as per HPI Neurological: Reports: as per HPI Psychiatric: Reports: as per HPI Endocrine: Reports: as per HPI Hematological/Lymphatic: Reports: as per HPI Allergic/Immunologic: Reports: as per HPI Past Medical History - Past Medical History Source: patient Medical history: Reports: cardiomyopathy, CHF, valvular heart disease Psychiatric history: Reports: no psych history - Social History Smoking Status: Never smoker Smokeless Tobacco Status: No Alcohol use: Reports: none Drug use: Reports: none Physical Exam - General Limitations: no limitations General appearance: alert, in no apparent distress - Head Head exam: atraumatic - Eye Eye exam: Present: normal appearance - ENT ENT exam: normal exam - Neck Neck exam: Present: normal inspection, full ROM - Chest Chest inspection: Present: normal inspection, symmetric chest wall rise - Respiratory Respiratory exam: Present: normal lung sounds bilaterally - Cardiovascular Cardiovascular exam: Present: tachycardia, irregular rhythm - Rectal Exam Rectal exam: Present: deferred - Extremities Exam Extremities exam: Present: pedal edema (At sock line) - Neurological Exam Neurological exam: Present: alert, oriented X3, CN II-XII intact - Psychiatric Psychiatric exam: Present: normal affect, normal mood - Skin Skin exam: Present: warm, dry, intact Course Course Narrative: Patient presents to emergency room with exertional chest discomfort, dyspnea, cough, fever and peripheral edema. Workup initiated - Reevaluation(s) Reevaluation #1: D-dimer is elevated. Patient is tachycardic. CTA ordered Time: 11:53 Vital Signs Temperature 98.5 F 05/08/19 10:34 Pulse Rate 118 05/08/19 10:34 Respiratory Rate 18 05/08/19 10:34 Blood Pressure 154/106 05/08/19 10:34 O2 Sat by Pulse Oximetry 94 05/08/19 10:34 Temperature 98.5 F 05/08/19 10:34 Pulse Rate 117 05/08/19 12:36 Respiratory Rate 18 05/08/19 12:36 Blood Pressure 151/109 05/08/19 12:36 O2 Sat by Pulse Oximetry 94 05/08/19 12:36 Oxygen Delivery Oxygen Delivery Room Air Shortness of Breath/Dyspnea - Medical Records Medical records reviewed: Yes I reviewed the patient's medical records. - Lab Data Lab results reviewed: Yes I reviewed the patient's lab results. Result diagrams: 05/08/19 10:55 05/08/19 10:55 Lab Results 05/08/19 05/08/19 05/08/19 Range/Units 10:55 10:55 10:55 WBC 4.7 (4.3-11.1) K/mcL RBC 4.23 (3.82-4.97) M/mcL Hgb 12.8 (11.5-15.4) g/dL Hct 40.1 (35.3-44.9) % MCV 94.8 (83.0-100.0) fL MCH 30.3 (28.0-33.3) pg MCHC 31.9 (31.6-35.5) g/dL RDW 17.3 H (11.5-14.5) % Plt Count 219 (140-400) K/mcL MPV 9.7 (9.4-12.4) fL Immature Gran % 0.0 (0-4) % Seg Neutrophils % 66.2 % Lymphocytes % 22.8 % Monocytes % 8.7 % Eosinophils % 1.5 % Basophils % 0.8 % Neutrophils # 3.1 (1.6-8.9) K/mcL Lymphocytes # 1.1 (0.6-4.6) K/mcL Monocytes # 0.4 (0.0-1.3) K/mcL Eosinophils # 0.1 (0.0-0.6) K/mcL Basophils # 0.0 (0.0-0.2) K/mcL PT 22.7 H (9.4-12.1) Seconds INR 2.0 D-Dimer 1253 H (0-500) ng/mLFEU Sodium 140 (136-145) mEq/L Potassium 3.9 (3.5-5.1) mEq/L Chloride 107 (98-107) mEq/L Carbon Dioxide 23 (23-29) mEq/L BUN 10 (6-20) mg/dL Creatinine 0.67 (0.60-1.20) mg/dL Est GFR ( Amer) > 60 (> 60) Est GFR (Non-Af Amer) > 60 (> 60) BUN/Creatinine Ratio 15 (6-26) Glucose 97 (70-105) mg/dL Calculated Osmolality 289 (280-300) Calcium 10.6 H (8.6-10.3) mg/dL Troponin I 0.07 H* (< 0.04) ng/mL B-Natriuretic Peptide (Less than 100) pg/mL 05/08/19 Range/Units 10:55 WBC (4.3-11.1) K/mcL RBC (3.82-4.97) M/mcL Hgb (11.5-15.4) g/dL Hct (35.3-44.9) % MCV (83.0-100.0) fL MCH (28.0-33.3) pg MCHC (31.6-35.5) g/dL RDW (11.5-14.5) % Plt Count (140-400) K/mcL MPV (9.4-12.4) fL Immature Gran % (0-4) % Seg Neutrophils % % Lymphocytes % % Monocytes % % Eosinophils % % Basophils % % Neutrophils # (1.6-8.9) K/mcL Lymphocytes # (0.6-4.6) K/mcL Monocytes # (0.0-1.3) K/mcL Eosinophils # (0.0-0.6) K/mcL Basophils # (0.0-0.2) K/mcL PT (9.4-12.1) Seconds INR D-Dimer (0-500) ng/mLFEU Sodium (136-145) mEq/L Potassium (3.5-5.1) mEq/L Chloride (98-107) mEq/L Carbon Dioxide (23-29) mEq/L BUN (6-20) mg/dL Creatinine (0.60-1.20) mg/dL Est GFR ( Amer) (> 60) Est GFR (Non-Af Amer) (> 60) BUN/Creatinine Ratio (6-26) Glucose (70-105) mg/dL Calculated Osmolality (280-300) Calcium (8.6-10.3) mg/dL Troponin I (< 0.04) ng/mL B-Natriuretic Peptide 911 H (Less than 100) pg/mL - Radiology Data Radiology results reviewed: Yes I reviewed the patient's radiology results. - EKG Data EKG attestation: Yes I reviewed and interpreted this EKG. EKG results narrative: Paced rhythm rate 113 QRS 135 QT/QTC 380/447. No acute ST segment elevation noted. Study compared to previous dated 01/22/19 Critical Care Time Critical Care Time: Yes Total Critical Care Time: 30 Attestation: The high probability of a clinically significant, sudden or life threatening deterioration of the [] system(s) required my full and direct attention, intervention and personal management. The aggregate critical care time was [] minutes. This time is in addition to time spent performing reported procedures but includes the following: [] Data Review and interpretation [] Patient assessment and monitoring of vital signs [] Documentation [] Medication orders and management
[2019-05-08 11:36] LABS: Troponin I 0.07 ng/mL (< 0.04)
[2019-05-08] MEDS ORDERED: Isovue-370 500 ML BOTTLE IVP ONE (11:46)
[2019-05-08] MEDS ORDERED: Furosemide 40 MG/4 ML VIAL IVP ONE (11:52)
[2019-05-08] MEDS ORDERED: Aspirin 325 MG TABLET PO ONE (11:52)
--- NOTE | 2019-05-08 15:25 | Internal Med History&Physical ---
Date of Encounter: 05/08/19 Time of Encounter: 15:25 Internal Medicine - H&P: HPI Chief complaint: Progressive worsening of shortness of breath History of present illness: Ms. Ojeda is a 58 year old female Patient with past medical history of congestive heart failure, cardiomyopathy and valvular heart disease on chronic coagulation with Coumadin for mechanical heart valve replacement who presented with history of several day of shortness of breath associated with progressive worsening of lower extremity edema. The patient also is complaining of mild productive cough associated with low-grade fever. She denies palpitation, paroxysmal nocturnal dyspnea, however she admits to dyspnea on exertion. The patient was admitted in January 2019 with similar symptoms,she was treated for congestive heart failure. She underwent a repeat echocardiogram which revealed LVEF 20% which is decreased compared to echo from approximately 1 year prior. She was evaluated by cardiology who recommended adding aldactone to her medication regimen. The patient chest x-ray today revealed mild congestive heart failure. There was a concern of possible pulmonary embolism so a CTA was obtained and revealed Negative for pulmonary embolus, bilateral perihilar infiltrate and bilateral pleural effusions, cardiomegaly, suspected heart failure with reflux of contrast into the inferior vena cava. The patient was admitted admitted for further evaluation and management of congestive heart failure exacerbation. 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 open heart surgery (mitral valve replacement) - Social History Smoking Status: Never smoker Smokeless Tobacco Status: No Alcohol use: none Drug use: none - Family History Father Living Status: Mother Living Status: Hx Family Cardiac Disorders: Yes Hx Family Respiratory Disorders: Yes Sister Hx Family Cardiac Disorders: Yes Brother Hx Family Cardiac Disorders: Yes Hx Family Cancer: Yes Hx Family Endocrine Disorder: Yes Internal Medicine - H&P: Meds Furosemide [Lasix] 40 mg PO DAILY 01/21/19 [History] Lisinopril [Zestril] 40 mg PO DAILY 01/21/19 [History] Pravastatin Sodium [Pravachol] 20 mg PO DAILY 01/21/19 [History] Warfarin Sodium 5 mg PO DAILY 01/21/19 [History] Omeprazole [PriLOSEC] 40 mg PO DAILY PRN 01/22/19 [History] Carvedilol [Coreg] 25 mg PO BID 05/08/19 [History] Digoxin [Lanoxin] 125 mcg PO DAILY 05/08/19 [History] Metoprolol Succinate 100 mg PO DAILY 05/08/19 [History] Spironolactone [Aldactone] 12.5 mg PO DAILY 05/08/19 [History] Allergy/AdvReac Type Severity Reaction Status Date / Time loratadine [From Claritin] Allergy Palpitation Verified 01/21/19 11:36 s morphine Allergy Rash Verified 01/21/19 11:36 All Systems PM: A 10-system review of systems was performed and is negative for pertinent find ings except as documented above in the HPI. - Constitutional Vitals: Temp Pulse Resp BP Pulse Ox 97.5 F L 105 14 153/95 99 05/08/19 15:05 05/08/19 15:05 05/08/19 15:05 05/08/19 15:05 05/08/19 15:05 General appearance: Present: A&O X 3 Exam: ` - Head Head exam: Present: atraumatic, normocephalic - Neck Neck exam general surgery: Present: supple, trachea midline. Absent: lymphadenopathy - Respiratory Respiratory exam: Present: CTAB. Absent: accessory muscle use, rales, rhonchi, wheezes - Cardiovascular Cardiovascular exam: Present: RRR, +S1, +S2. Absent: diastolic murmur, gallop, rubs, systolic murmur - GI/Abdominal GI/Abdominal exam: Present: normal bowel sounds, soft, no peritoneal signs. Absent: distended, tenderness - Extremities Exam Extremities exam: Present: warm, radial pulses palpable and symmetrical. Absent: calf tenderness, cyanotic, pedal edema Internal Med - H&P Results - Labs CBC & Chem 7: 05/09/19 00:15 05/09/19 00:15 Labs: Short CBC 05/08/19 Range/Units 10:55 WBC 4.7 (4.3-11.1) K/mcL Hgb 12.8 (11.5-15.4) g/dL Hct 40.1 (35.3-44.9) % Plt Count 219 (140-400) K/mcL Neutrophils # 3.1 (1.6-8.9) K/mcL BMP 05/08/19 10:55 Sodium 140 Potassium 3.9 Chloride 107 Carbon Dioxide 23 BUN 10 Creatinine 0.67 Glucose 97 Calcium 10.6 H Cardiac Enzymes 05/08/19 Range/Units 10:55 Troponin I 0.07 H* (< 0.04) ng/mL - Impressions ITS Impressions Chest X-Ray 05/08/19 10:41 IMPRESSION: Mild CHF. D/ / Nickolas Lama MD / Nickolas Lama MD Interpreting Provider: Nickolas Lama MD Chest CTA 05/08/19 11:46 IMPRESSION: Negative for pulmonary embolus. Bilateral perihilar infiltrate and bilateral pleural effusions. Cardiomegaly Suspected heart failure with reflux of contrast into the inferior vena cava D/ / Leo Sparks MD / Leo Sparks MD Interpreting Provider: Leo Sparks MD - Assessment and Plan (1) Acute on chronic systolic (congestive) heart failure Current Visit: No Status: Acute Assessment and plan: - SOB associated with progressive worsening of lower extremity edema, most likely secondary to CHF exacerbation R/O ischemia Noncompliance URTI PLAN: - CPP x 1 more, 8 hr after the 1st one - EKG in AM - ASA - O2 to keep SpO2 > 92% - Lasix 40 mg IV BID - Aerosols UD q 4 hr - UA - 2D Echo - CBCD, BMP in AM - Fasting lipids - Tylenol 650 mg PO q 4-6 hr PRN pain (2) S/P MVR (mitral valve replacement) Current Visit: No Status: Chronic Assessment and plan: Patient is current on chronic anticoagulations was warfarin, we will continue blood thinner and consult pharmacy for those adjusting (3) HTN (hypertension) Current Visit: No Status: Chronic Assessment and plan: We will continue home medication and continue to monitor blood pressure while inpatient and adjust regimen if indicated (4) Bronchitis Current Visit: No Status: Acute Assessment and plan: We will start the patient in when necessary DuoNeb. (5) Anticoagulant long-term use Current Visit: No Status: Acute (6) Elevated troponin Current Visit: Yes Status: Acute Assessment and plan: The patient is chest pain-free, we will trend cardiac enzymes, EKG shows no ischemic ST T wave changes. - Time Spent With Patient Total time spent is greater than 50% in coordination of care (as documented) at patient's floor/unit and/or counseling patient:
[2019-05-08] MEDS ORDERED: Ondansetron 4 MG/2 ML VIAL IVP PRN (15:30)
[2019-05-08] MEDS ORDERED: Naloxone 0.4 MG/ML INJ IVP PRN (15:30)
[2019-05-08 16:08] LABS: Basophils % 0.9 %; Eosinophils # 0.1 K/mcL (0.0-0.6); Eosinophils % 1.1 %; Hematocrit 41.4 % (35.3-44.9); Hemoglobin 13.5 g/dL (11.5-15.4); Immature Granulocytes % 0.2 % (0-4); Lymphocytes # 1.2 K/mcL (0.6-4.6); Lymphocytes % 26.1 %; Mean Corpuscular HGB Conc 32.6 g/dL (31.6-35.5); Mean Corpuscular Hemoglobin 29.9 pg (28.0-33.3); Mean Corpuscular Volume 91.6 fL (83.0-100.0); Mean Platelet Volume 10.6 fL (9.4-12.4); Monocytes # 0.4 K/mcL (0.0-1.3); Monocytes % 9.4 %; Neutrophils # 2.8 K/mcL (1.6-8.9); Platelet Count 205 K/mcL (140-400); Red Blood Count 4.52 M/mcL (3.82-4.97); Red Cell Distribution Width 17.3 % (11.5-14.5); Segmented Neutrophils % 62.3 %; White Blood Count 4.5 K/mcL (4.3-11.1)
--- NOTE | 2019-05-08 16:54 | Electrocardiograph Report ---
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
[2019-05-08] MEDS ORDERED: Perflutren Lipid Microsphere 1.3 ML in 0.9 % Sodium Chloride 8.7 ML IVP ONE (17:59)
[2019-05-08] MEDS ORDERED: *HR* Warfarin 7.5 MG TABLET PO ONE (18:00)
[2019-05-08] MEDS ORDERED: Warfarin perPT PO PRN (18:00)
[2019-05-08] MEDS: Furosemide 40 MG/4 ML VIAL IVP SCH (18:31)
[2019-05-09 00:32] LABS: Basophils % 0.8 %; Eosinophils # 0.1 K/mcL (0.0-0.6); Eosinophils % 1.6 %; Hematocrit 34.9 % (35.3-44.9); Lymphocytes # 1.1 K/mcL (0.6-4.6); Mean Corpuscular HGB Conc 32.7 g/dL (31.6-35.5); Mean Corpuscular Hemoglobin 29.6 pg (28.0-33.3); Mean Corpuscular Volume 90.6 fL (83.0-100.0); Mean Platelet Volume 10.2 fL (9.4-12.4); Monocytes # 0.4 K/mcL (0.0-1.3); Monocytes % 9.2 %; Neutrophils # 2.3 K/mcL (1.6-8.9); Platelet Count 189 K/mcL (140-400); Red Blood Count 3.85 M/mcL (3.82-4.97); Red Cell Distribution Width 17.3 % (11.5-14.5); Segmented Neutrophils % 59.4 %; White Blood Count 3.8 K/mcL (4.3-11.1)
[2019-05-09 00:33] LABS: Hemoglobin 11.4 g/dL (11.5-15.4)
[2019-05-09 00:44] LABS: INR 2.1; Prothrombin Time 24.2 Seconds (9.4-12.1)
[2019-05-09 00:46] LABS: Activated Partial Thrombo Time 33.6 Seconds (26.0-36.0)
[2019-05-09 00:50] LABS: Alanine Aminotransferase 12 Units/L (7-52); Albumin 3.5 g/dL (3.5-5.7); Albumin/Globulin Ratio 1.3 (1.1-2.2); Alkaline Phosphatase 68 Units/L (34-104); Aspartate Amino Transferase 24 Units/L (13-39); BUN/Creatinine Ratio 16 (6-26); Bilirubin,Total 1.9 mg/dL (0.3-1.0); Blood Urea Nitrogen 14 mg/dL (6-20); Calcium 9.7 mg/dL (8.6-10.3); Carbon Dioxide 25 mEq/L (23-29); Chloride 108 mEq/L (98-107); Chol/HDL Ratio 4.5 (0-4.9); Cholesterol 108 mg/dL (< 200); Globulin 2.6 g/dL (2.4-3.5); Glucose 150 mg/dL (70-105); HDL Cholesterol 24 mg/dL (40-59); LDL Cholesterol,Calculated 78 mg/dL (0-99); Magnesium 1.6 mg/dL (1.6-2.6); Osmolality,Calculated 293 (280-300); Phosphorous 3.1 mg/dL (2.7-4.5); Potassium 3.3 mEq/L (3.5-5.1); Sodium 140 mEq/L (136-145); Total Protein 6.1 g/dL (6.4-8.9); Triglycerides 28 mg/dL (< 150); eGFR For African Americans > 60 (> 60); eGFR For Non-African Americans > 60 (> 60)
[2019-05-09] MEDS ORDERED: Acetaminophen 325 MG TABLET PO ONE (01:04)
[2019-05-09] MEDS ORDERED: Ipratropium/Albuterol Neb 3 ML IH PRN (06:38)
[2019-05-09] MEDS: Spironolactone 25 MG TABLET PO SCH (08:14)
[2019-05-09] MEDS: *HR* Digoxin 0.125 MG TABLET PO SCH (08:15)
[2019-05-09] MEDS: Metoprolol XL (24 HR) Succ 50 MG TAB.ER.24H PO SCH (08:15)
[2019-05-09] MEDS ORDERED: Lisinopril 20 MG TABLET PO SCH (09:00)
[2019-05-09] MEDS ORDERED: Albumin 25% 25gram/100mL 25 GM/100 ML IV.SOLN IVPB ONE (10:48)
[2019-05-09] MEDS: Furosemide 40 MG/4 ML VIAL IVP SCH ×2 (11:09→18:05)
[2019-05-09] MEDS ORDERED: *HR* Heparin 5,000 UNIT/ML VIAL IVP ONE (12:53)
[2019-05-09] MEDS ORDERED: *HR* Heparin 5,000 UNIT/ML VIAL IVP PRN ×2 (12:53)
[2019-05-09] MEDS ORDERED: Heparin 25,000 UNIT/250 ML D5W 25,000 UNIT/250 ML IV.SOLN IVC SCH (13:00)
--- NOTE | 2019-05-09 13:06 | Cardiology Consult Note ---
Date of Encounter: 05/09/19 Time of Encounter: 12:59 Assessment and Plan (1) S/P MVR (mitral valve replacement) Current Visit: Yes Status: Chronic History of RHD s/p mechanical mitral valve. INR is subtherapeutic. Recommend holding coumadin at this time so patient can undergo LHC. She will need bridging anticoagulation. Heparin is being started. (2) Atrial fibrillation Current Visit: No Status: Acute Known history of rate controlled atrial fibrillation. Anticoagulated with coumadin. Qualifiers: Atrial fibrillation type: chronic Qualified Code(s): I48.2 - Chronic atrial fibrillation (3) Biventricular CHF (congestive heart failure) Current Visit: Yes Status: Acute Acute on chronic biventricular heart failure exacerbation. Patient feels better from a congestive standpoint. However, BP now low probably due to receiving 2 beta blockers since admission (carvedilol + toprol). Recommend stopping carvedilol. Patient was transitioned to toprol recently as an outpatient at her request because coreg was cost prohibitive. She will continue Toprol. Also recommend addition of Entresto which was approved by her insurance recently as an outpatient - will stop lisinopril for 36h washout and wait until after LHC. Continue spironolactone - consider increasing once BP normalizes. Will need recommendations for PO diuretic prior to discharge. Recent Echo reviewed, EF ~15%. LV systolic function has slowly declined over the last few Echo evaluations. She has a history of mild CAD by [facility] in 2012 documented by outpatient records from [place]. Discussed pursuing LHC for an ischemic evaluation given further reduction in systolic function. Patient in agreement. Patient has been seen occasionally at [facility] since 2017 but finds the trip challenging. Offered the option of [facility] referral which she agrees with. This can be done as an outpatient. (4) Acute systolic heart failure Current Visit: Yes Status: Acute Patient's echo demonstrates further reduction in LV systolic function. She has history of mild CAD by [facility] from [place] in 2012. Discussed option of LHC with patient. R/B/A discussed in detail. Patient in agreement to proceed. Coumadin on hold bridging with heparin. Potential cath tomorrow pending clinical re- evaluation and labs. Discussion w patient/family: The assessment and plan as outlined above was discussed with the patient and/or family members who expressed understanding and agreement. All questions were answered. Thank you for involving us in the care of your patient. Please call with any questions. History of Present Illness Consult date: 05/09/19 Requesting physician: Brook Friend Consult reason: CHF Chief complaint: SOB, LE edema History of present illness: Ms. Ojeda is a 58 year old female known to me from the outpatient Cardiology setting presenting with worsening SOB and LE edema. Patient states that symptoms started over the last several days. She also describes having some chest tightness without radiation associated with dyspnea. No palpitations, abdominal distention, PND or orthopnea. She reports that her symptoms of SOB and LE edema have improved since admission. Today, she is feeling a little lightheaded. No syncope. Patient last seen in the Cardiology office 04/02/2019 for hospital follow up where she was admitted for systolic CHF exacerbation. She has known NICM s/p BiVICD diagnosed remotely in [place]. Also with Bi ventricular heart failure, RHD s/p mechanical mitral valve, chronic afib, mild CAD by [facility] 2012. Patient moved to [place] in 2016 and established with [facility]. She has been following with [facility] since April 2018 for local care. Past Med Surg Social Fam HX - Past Medical History Attestation: Yes The following information was validated with the patient. 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 open heart surgery (mitral valve replacement) - Social History Smoking Status: Never smoker Smokeless Tobacco Status: No Alcohol use: none Drug use: none - Family History Father Living Status: Mother Living Status: Hx Family Cardiac Disorders: Yes Hx Family Respiratory Disorders: Yes Sister Hx Family Cardiac Disorders: Yes Brother Hx Family Cardiac Disorders: Yes Hx Family Cancer: Yes Hx Family Endocrine Disorder: Yes Medications and Allergies Furosemide [Lasix] 40 mg PO DAILY 01/21/19 [History] Lisinopril [Zestril] 40 mg PO DAILY 01/21/19 [History] Pravastatin Sodium [Pravachol] 20 mg PO DAILY 01/21/19 [History] Warfarin Sodium 5 mg PO DAILY 01/21/19 [History] Omeprazole [PriLOSEC] 40 mg PO DAILY PRN 01/22/19 [History] Digoxin [Lanoxin] 125 mcg PO DAILY 05/08/19 [History] Metoprolol Succinate 100 mg PO DAILY 05/08/19 [History] Spironolactone [Aldactone] 12.5 mg PO DAILY 05/08/19 [History] Allergy/AdvReac Type Severity Reaction Status Date / Time loratadine [From Claritin] Allergy Palpitation Verified 01/21/19 11:36 s morphine Allergy Rash Verified 01/21/19 11:36 All Systems Review: The remainder of the systems were reviewed and are negative except as noted in HPI. - Cardiovascular Cardiovascular: as per HPI Physical Examination Vital Signs, Last 4 Hours Pulse Resp BP 05/09/19 10:30 71 18 77/54 General: Conversant, No Apparent Distress HEENT: Atraumatic, Normocephaly, Mucus Membranes Moist Neck: Other (Moderate elevation of JVP) Cardiac: Reg Rate and Rhythm, Other (audible mitral click, 2/6 systolic murmur) Lungs: Other (diminished breath sounds at bases, otherwise clear) Neuro: Alert and responsive, No focal deficits noted Abdomen: Soft, Non-Tender, Other (non distended) Extremities: Other (mild BLE edema) Results 05/09/19 00:15 05/09/19 00:15 Lab Results 05/08/19 05/08/19 05/09/19 15:54 15:54 00:15 WBC 4.5 3.8 L Hgb 13.5 11.4 L D Hct 41.4 34.9 L Plt Count 205 189 INR APTT Sodium Potassium Chloride Carbon Dioxide BUN Creatinine Glucose Calcium Magnesium Total Bilirubin AST ALT Alkaline Phosphatase Troponin I 0.07 H* B-Natriuretic Peptide 05/09/19 05/09/19 05/09/19 00:15 00:15 00:15 WBC Hgb Hct Plt Count INR 2.1 APTT 33.6 Sodium 140 Potassium 3.3 L Chloride 108 H Carbon Dioxide 25 BUN 14 Creatinine 0.88 Glucose 150 H Calcium 9.7 Magnesium 1.6 Total Bilirubin 1.9 H AST 24 ALT 12 Alkaline Phosphatase 68 Troponin I 0.06 H* B-Natriuretic Peptide 05/09/19 00:15 WBC Hgb Hct Plt Count INR APTT Sodium Potassium Chloride Carbon Dioxide BUN Creatinine Glucose Calcium Magnesium Total Bilirubin AST ALT Alkaline Phosphatase Troponin I B-Natriuretic Peptide 982 H - Imaging and Cardiology Chest Xray: report reviewed Echo: report reviewed (05/08/2019), image reviewed Other Results: Old medical records and Echo from 01/23/19 was reviewed - EKG Interpretation EKG results cardiology: personally reviewed (Ventricular pacing, intermittent [place] conduction, underlying afib, no acute findings) Consult Discharge Plan - Plan Referrals: NONE,PCP [Primary Care Provider] -
--- NOTE | 2019-05-09 14:45 | Internal Med Progress Note ---
Hospitalist Progress Note - Encounter Date of Encounter: 05/09/19 Time of Encounter: 12:00 - Subjective Interval History: Admitted overnight for worsening CHF. Improved this am - Exam Vitals: Temp Pulse Resp BP Pulse Ox 98.1 F 71 18 77/54 96 05/09/19 07:13 05/09/19 10:30 05/09/19 10:30 05/09/19 10:30 05/09/19 04:06 Exam: `General appearance: Present: A&O X 3, no acute distress Head exam: Present: normocephalic Respiratory exam: Present: CTAB. Absent: accessory muscle use, rales, rhonchi, wheezes Cardiovascular exam: Present: RRR, +S1, +S2. Absent: diastolic murmur, gallop, rubs, systolic murmur GI/Abdominal exam: Soft, NT, ND, +BS Extremities exam: trace pedal edema Neurological exam: Present: alert, oriented X3, no focal deficits. Absent: altered - Assessment and Plan (1) Acute on chronic systolic (congestive) heart failure Current Visit: Yes Status: Acute Assessment and Plan: SOB associated with progressive worsening of lower extremity edema, most likely secondary to CHF exacerbation Continue diuresis with lasix BID. repeat echo this am showed worsening EF of 15% down from 20-25% about 3 months ago Cardiology consulted and appreciate recs (2) S/P MVR (mitral valve replacement) Current Visit: Yes Status: Chronic Assessment and Plan: Continue warfarin (3) HTN (hypertension) Current Visit: Yes Status: Chronic Assessment and Plan: Continue home meds (4) Bronchitis Current Visit: Yes Status: Acute Assessment and Plan: We will start the patient in when necessary DuoNeb. (5) Elevated troponin Current Visit: Yes Status: Acute Assessment and Plan: Likely demand ischemia. No acute intervention (6) DVT prophylaxis Current Visit: Yes Status: Acute Assessment and Plan: On warfarin - Time Spent with Patient Total time spent is greater than 50% in coordination of care (as documented) at patient's floor/unit and/or counseling patient: Internal Medicine: Result - Labs CBC & Chem 7: 05/09/19 00:15 05/09/19 00:15 Labs: Short CBC 05/08/19 05/09/19 Range/Units 15:54 00:15 WBC 4.5 3.8 L (4.3-11.1) K/mcL Hgb 13.5 11.4 L D (11.5-15.4) g/dL Hct 41.4 34.9 L (35.3-44.9) % Plt Count 205 189 (140-400) K/mcL Neutrophils # 2.8 2.3 (1.6-8.9) K/mcL BMP 05/09/19 00:15 Sodium 140 Potassium 3.3 L Chloride 108 H Carbon Dioxide 25 BUN 14 Creatinine 0.88 Glucose 150 H Calcium 9.7 Cardiac Enzymes 05/08/19 05/09/19 Range/Units 15:54 00:15 Troponin I 0.07 H* 0.06 H* (< 0.04) ng/mL Liver Function 05/09/19 Range/Units 00:15 Total Bilirubin 1.9 H (0.3-1.0) mg/dL AST 24 (13-39) Units/L ALT 12 (7-52) Units/L Alkaline Phosphatase 68 (34-104) Units/L Albumin 3.5 (3.5-5.7) g/dL - ABG Interpretation ABG results: PT/INR, D-dimer PT 24.2 Seconds (9.4-12.1) H 05/09/19 00:15 1253 ng/mLFEU (0-500) H 05/08/19 10:55 - Impressions Impressions Chest CTA 05/08/19 11:46 IMPRESSION: Negative for pulmonary embolus. Bilateral perihilar infiltrate and bilateral pleural effusions. Cardiomegaly Suspected heart failure with reflux of contrast into the inferior vena cava D/ / Leo Sparks MD / Leo Sparks MD Interpreting Provider: Leo Sparks MD Echocardiogram Limited Views 05/08/19 15:28 Impressions: LVEF 15%. Severely dilated left ventricle. Atypical septal motion consistent with post-operative status. Severe global left ventricular systolic dysfunction with regional variations. No LV thrombus visualized. Left Ventricular Wall Motion: Rest Echo Findings The apex, apical inferior, mid inferior, basal inferior, apical anterior, mid anterior, basal anterior, apical septal, mid inferior septal, basal inferior septal, apical lateral, mid anterior lateral, basal anterior lateral, mid anterior septal, mid inferior lateral, basal anterior septal and basal inferior lateral crowley were hypokinetic. Findings: Study Quality * Technically adequate exam. ECG Findings * Paced rhythm. Left Ventricle * LVEF 15%. * Severely dilated left ventricle. * Atypical septal motion consistent with post-operative status. * Microbubbles noted in the LV, similar to previous report. * Severe global left ventricular systolic dysfunction with regional variations. Right Ventricle * Mild right ventricular hypokinesis. Aorta * Normally sized aortic root. IVC * The IVC is dilated. Device lead * A device lead was visualized in the right atrium and right ventricle. Consult Discharge Plan - Plan Referrals: NONE,PCP [Primary Care Provider] -
[2019-05-09] MEDS ORDERED: Furosemide 20 MG/2 ML VIAL IVP ONE (17:08)
[2019-05-09] MEDS: Acetaminophen 325 MG TABLET PO PRN (21:37)
[2019-05-10 01:50] LABS: Basophils % 0.5 %; Eosinophils # 0.1 K/mcL (0.0-0.6); Eosinophils % 2.9 %; Hematocrit 35.1 % (35.3-44.9); Hemoglobin 11.4 g/dL (11.5-15.4); Immature Granulocytes % 0.2 % (0-4); Lymphocytes # 1.6 K/mcL (0.6-4.6); Lymphocytes % 39.5 %; Mean Corpuscular HGB Conc 32.5 g/dL (31.6-35.5); Mean Corpuscular Hemoglobin 29.7 pg (28.0-33.3); Mean Corpuscular Volume 91.4 fL (83.0-100.0); Mean Platelet Volume 10.1 fL (9.4-12.4); Monocytes # 0.4 K/mcL (0.0-1.3); Monocytes % 10.3 %; Neutrophils # 1.9 K/mcL (1.6-8.9); Platelet Count 201 K/mcL (140-400); Red Blood Count 3.84 M/mcL (3.82-4.97); Red Cell Distribution Width 17.2 % (11.5-14.5); Segmented Neutrophils % 46.6 %; White Blood Count 4.1 K/mcL (4.3-11.1)
[2019-05-10 01:58] LABS: INR 2.6; Prothrombin Time 29.5 Seconds (9.4-12.1)
[2019-05-10 02:02] LABS: Heparin anti-factor XA UFH 1.03 IU/mL (0.30-0.70)
[2019-05-10 02:10] LABS: BUN/Creatinine Ratio 19 (6-26); Blood Urea Nitrogen 16 mg/dL (6-20); Calcium 9.9 mg/dL (8.6-10.3); Carbon Dioxide 25 mEq/L (23-29); Chloride 107 mEq/L (98-107); Glucose 93 mg/dL (70-105); Magnesium 1.7 mg/dL (1.6-2.6); Osmolality,Calculated 285 (280-300); Phosphorous 3.3 mg/dL (2.7-4.5); Potassium 3.8 mEq/L (3.5-5.1); Sodium 137 mEq/L (136-145); eGFR For African Americans > 60 (> 60); eGFR For Non-African Americans > 60 (> 60)
--- NOTE | 2019-05-10 08:18 | Internal Med Progress Note ---
Hospitalist Progress Note - Encounter Date of Encounter: 05/10/19 Time of Encounter: 08:00 - Subjective Interval History: No acute events overnight - Exam Vitals: Temp Pulse Resp BP Pulse Ox 98.0 F 71 14 100/68 98 05/10/19 07:35 05/10/19 07:35 05/10/19 07:35 05/10/19 07:35 05/10/19 04:06 Exam: `General appearance: Present: A&O X 3, no acute distress Head exam: Present: normocephalic Respiratory exam: Present: CTAB. Absent: accessory muscle use, rales, rhonchi, wheezes Cardiovascular exam: Present: RRR, +S1, +S2. Absent: diastolic murmur, gallop, rubs, systolic murmur GI/Abdominal exam: Soft, NT, ND, +BS Extremities exam: trace pedal edema Neurological exam: Present: alert, oriented X3, no focal deficits. Absent: altered - Assessment and Plan (1) Acute on chronic systolic (congestive) heart failure Current Visit: Yes Status: Acute Assessment and Plan: SOB associated with progressive worsening of lower extremity edema, most likely secondary to CHF exacerbation Continue diuresis with lasix BID. repeat echo this am showed worsening EF of 15% down from 20-25% about 3 months ago Cardiology consulted and plan for cath today (2) S/P MVR (mitral valve replacement) Current Visit: Yes Status: Chronic Assessment and Plan: Continue warfarin (3) HTN (hypertension) Current Visit: Yes Status: Chronic Assessment and Plan: Continue home meds (4) Bronchitis Current Visit: Yes Status: Acute Assessment and Plan: We will start the patient in when necessary DuoNeb. (5) Elevated troponin Current Visit: Yes Status: Acute Assessment and Plan: Likely demand ischemia. No acute intervention (6) DVT prophylaxis Current Visit: Yes Status: Acute Assessment and Plan: On warfarin - Time Spent with Patient Total time spent is greater than 50% in coordination of care (as documented) at patient's floor/unit and/or counseling patient: Internal Medicine: Result - Labs CBC & Chem 7: 05/10/19 01:28 05/10/19 01:28 Labs: Short CBC 05/10/19 Range/Units 01:28 WBC 4.1 L (4.3-11.1) K/mcL Hgb 11.4 L (11.5-15.4) g/dL Hct 35.1 L (35.3-44.9) % Plt Count 201 (140-400) K/mcL Neutrophils # 1.9 (1.6-8.9) K/mcL BMP 05/10/19 01:28 Sodium 137 Potassium 3.8 Chloride 107 Carbon Dioxide 25 BUN 16 Creatinine 0.84 Glucose 93 Calcium 9.9 - ABG Interpretation ABG results: PT/INR, D-dimer PT 29.5 Seconds (9.4-12.1) H 05/10/19 01:28 1253 ng/mLFEU (0-500) H 05/08/19 10:55 - Impressions Impressions Echocardiogram Limited Views 05/08/19 15:28 Impressions: LVEF 15%. Severely dilated left ventricle. Atypical septal motion consistent with post-operative status. Severe global left ventricular systolic dysfunction with regional variations. No LV thrombus visualized. Left Ventricular Wall Motion: Rest Echo Findings The apex, apical inferior, mid inferior, basal inferior, apical anterior, mid anterior, basal anterior, apical septal, mid inferior septal, basal inferior septal, apical lateral, mid anterior lateral, basal anterior lateral, mid anterior septal, mid inferior lateral, basal anterior septal and basal inferior lateral crowley were hypokinetic. Findings: Study Quality * Technically adequate exam. ECG Findings * Paced rhythm. Left Ventricle * LVEF 15%. * Severely dilated left ventricle. * Atypical septal motion consistent with post-operative status. * Microbubbles noted in the LV, similar to previous report. * Severe global left ventricular systolic dysfunction with regional variations. Right Ventricle * Mild right ventricular hypokinesis. Aorta * Normally sized aortic root. IVC * The IVC is dilated. Device lead * A device lead was visualized in the right atrium and right ventricle. Consult Discharge Plan - Plan Referrals: NONE,PCP [Primary Care Provider] - (3) HTN (hypertension) Qualifiers: Hypertension type: essential hypertension Qualified Code(s): I10 - Essential (primary) hypertension
[2019-05-10] MEDS: Metoprolol XL (24 HR) Succ 50 MG TAB.ER.24H PO SCH (08:43)
[2019-05-10] MEDS: *HR* Digoxin 0.125 MG TABLET PO SCH (08:43)
[2019-05-10] MEDS: Spironolactone 25 MG TABLET PO SCH (08:43)
[2019-05-10] MEDS: Furosemide 40 MG/4 ML VIAL IVP SCH ×2 (08:48→17:10)
--- NOTE | 2019-05-10 12:37 | Cardiology Progress Note ---
Date of Encounter: 05/10/19 Time of Encounter: 10:00 Assessment and Plan (1) Biventricular CHF (congestive heart failure) Current Visit: Yes Status: Acute Per cardiology: -Acute on chronic biventricular heart failure exacerbation. -Patient feels better from a congestive standpoint. -She will continue Toprol. Also recommend addition of Entresto which was approved by her insurance recently as an outpatient - will stop lisinopril for 36h washout and wait until after LHC. -ON IV lasix, Continue spironolactone - consider increasing once BP normalizes. Will need recommendations for PO diuretic prior to discharge. Currently net negative ~1.5L. -Recent Echo reviewed, EF ~15%. LV systolic function has slowly declined over the last few Echo evaluations. She has a history of mild CAD by [facility] in 2012 documented by outpatient records from [place]. -Discussed pursuing LHC for an ischemic evaluation given further reduction in systolic function. Patient in agreement. Will plan for LHC once able with INR. (2) S/P MVR (mitral valve replacement) Current Visit: Yes Status: Chronic Per cardiology: -History of RHD s/p mechanical mitral valve. -Goal INR 2.5-3.5, INR was subtherapeutic on admission and patient was started on heparin drip. -INR now 2.6. -Recommend holding coumadin at this time so patient can undergo LHC. -Discussed with , now with INR therapeutic, will hold heparin for now. Will need to resume once INR less than 2.5. (3) Atrial fibrillation Current Visit: No Status: Acute Per cardiology: -Known history of rate controlled atrial fibrillation. Anticoagulated with coumadin. Qualifiers: Atrial fibrillation type: chronic Qualified Code(s): I48.2 - Chronic atrial fibrillation (4) Elevated troponin Current Visit: Yes Status: Acute Per cardiology: -Mild, adynamic troponin elevation in the setting of CHF. -Denies chest pain, -No acute ischemic ECG changes noted. -Demand ischemia, no cardiac rehab consult warranted. Discussion w patient/family: The assessment and plan as outlined above was discussed with the patient and/or family members who expressed understanding and agreement. All questions were answered. Thank you for involving us in the care of your patient. Please call with any questions. Discussed and reviewed with Subjective Principal diagnosis: CHF Interval history: Patient reports shortness of breath and edema are improved today. Patient anxious regarding LHC. Objective Vital Signs Temperature 98.5 F 05/08/19 10:34 Pulse Rate 118 05/08/19 10:34 Respiratory Rate 18 05/08/19 10:34 Blood Pressure 154/106 05/08/19 10:34 O2 Sat by Pulse Oximetry 94 05/08/19 10:34 Temperature 98.0 F 05/10/19 07:35 Pulse Rate 71 05/10/19 07:35 Respiratory Rate 14 05/10/19 07:35 Blood Pressure 100/68 05/10/19 07:35 O2 Sat by Pulse Oximetry 98 05/10/19 04:06 Oxygen Delivery Oxygen Delivery Room Air General: Conversant, No Apparent Distress HEENT: Atraumatic, Normocephaly, Mucus Membranes Moist Neck: No JVD, Normal carotid pulses Cardiac: Reg Rate and Rhythm, Normal S1 and S2, No Murmur Lungs: Normal Breath Sounds, No Wheeze, Rales, Rhonchi Neuro: Alert and responsive, No focal deficits noted Abdomen: Soft, Non-Tender Skin: No rashes noted on visualized skin Musculoskeletal: No Chest Wall Tenderness Extremities: No Clubbing, No Cyanosis, No Edema, Normal Pulses Results 05/10/19 01:28 05/10/19 01:28 Lab Results Active Medications Acetaminophen (Tylenol) 650 mg PO Q6HR PRN PRN Reason: Fever Stop: 11/08/19 09:07 Last Admin: 05/09/19 21:37 Dose: 650 mg Documented by: Albuterol/Ipratropium (Duoneb) 3 ml IH [id number] PRN PRN Reason: Shortness Of Breath/Wheezing Stop: 11/08/19 06:39 Digoxin (Lanoxin) 0.125 mg PO DAILY [facility] Stop: 11/08/19 09:01 Last Admin: 05/10/19 08:43 Dose: 0.125 mg Documented by: Furosemide (Lasix) 40 mg IVP BIDDIURETIC [facility]ONCHO Stop: 11/07/19 17:31 Last Admin: 05/10/19 08:48 Dose: Not Given Documented by: Metoprolol Succinate (Toprol Xl) 100 mg PO DAILY [facility] Stop: 11/08/19 09:01 Last Admin: 05/10/19 08:43 Dose: 100 mg Documented by: Naloxone HCl (Narcan) 0.4 mg IVP Q2MPRN PRN PRN Reason: SEE COMMENTS Stop: 11/07/19 15:31 Omeprazole (Prilosec) 40 mg PO DAILY PRN PRN Reason: Heartburn Ondansetron HCl (Zofran) 4 mg IVP Q8HR PRN PRN Reason: Nausea And Vomiting Stop: 11/07/19 15:31 Simvastatin (Zocor) 10 mg PO DAILY@2100 [facility] Stop: 11/07/19 21:01 Last Admin: 05/09/19 21:37 Dose: 10 mg Documented by: Spironolactone (Aldactone) 12.5 mg PO DAILY [facility] Stop: 11/08/19 09:01 Last Admin: 05/10/19 08:43 Dose: 12.5 mg Documented by: Laboratory Tests 05/08/19 05/08/19 05/08/19 10:55 10:55 15:54 Hgb INR Creatinine Troponin I 0.07 H* 0.07 H* B-Natriuretic Peptide 911 H 05/09/19 05/09/19 05/10/19 00:15 00:15 01:28 Hgb 11.4 L INR 2.1 Creatinine Troponin I 0.06 H* B-Natriuretic Peptide 05/10/19 05/10/19 01:28 01:28 Hgb INR 2.6 Creatinine 0.84 Troponin I B-Natriuretic Peptide - Imaging and Cardiology Chest Xray: report reviewed Echo: report reviewed Cardiac cath: pending - EKG Interpretation EKG results cardiology: other (Telemetry reviewed with average HR previous 12 hours noted to be 72, paced with underlying a.fib, PVCs noted.) Consult Discharge Plan - Plan Referrals: NONE,PCP [Primary Care Provider] -
[2019-05-10] MEDS: Acetaminophen 325 MG TABLET PO PRN (22:28)
[2019-05-11 05:01] LABS: Basophils % 0.9 %; Eosinophils # 0.2 K/mcL (0.0-0.6); Eosinophils % 4.5 %; Hematocrit 35.2 % (35.3-44.9); Immature Granulocytes % 0.3 % (0-4); Lymphocytes # 1.3 K/mcL (0.6-4.6); Lymphocytes % 37.5 %; Mean Corpuscular HGB Conc 31.3 g/dL (31.6-35.5); Mean Corpuscular Hemoglobin 29.3 pg (28.0-33.3); Mean Corpuscular Volume 93.9 fL (83.0-100.0); Mean Platelet Volume 9.8 fL (9.4-12.4); Monocytes # 0.4 K/mcL (0.0-1.3); Monocytes % 12.8 %; Neutrophils # 1.5 K/mcL (1.6-8.9); Platelet Count 213 K/mcL (140-400); Red Blood Count 3.75 M/mcL (3.82-4.97); Red Cell Distribution Width 17.1 % (11.5-14.5); White Blood Count 3.4 K/mcL (4.3-11.1)
[2019-05-11 05:07] LABS: INR 1.9
[2019-05-11 05:16] LABS: BUN/Creatinine Ratio 18 (6-26); Blood Urea Nitrogen 14 mg/dL (6-20); Calcium 9.7 mg/dL (8.6-10.3); Carbon Dioxide 25 mEq/L (23-29); Chloride 108 mEq/L (98-107); Glucose 77 mg/dL (70-105); Magnesium 1.8 mg/dL (1.6-2.6); Osmolality,Calculated 287 (280-300); Phosphorous 3.5 mg/dL (2.7-4.5); Potassium 4.2 mEq/L (3.5-5.1); Sodium 139 mEq/L (136-145); eGFR For African Americans > 60 (> 60); eGFR For Non-African Americans > 60 (> 60)
[2019-05-11 05:45] LABS: Platelet Estimate Normal (Normal)
[2019-05-11] MEDS: Furosemide 40 MG/4 ML VIAL IVP SCH ×3 (08:00→17:11)
[2019-05-11] MEDS: Metoprolol XL (24 HR) Succ 50 MG TAB.ER.24H PO SCH (08:42)
[2019-05-11] MEDS: *HR* Digoxin 0.125 MG TABLET PO SCH (08:42)
--- NOTE | 2019-05-11 08:46 | Internal Med Progress Note ---
Hospitalist Progress Note - Encounter Date of Encounter: 05/11/19 Time of Encounter: 08:00 - Subjective Interval History: No acute events overnight - Exam Vitals: Temp Pulse Resp BP Pulse Ox 98.2 F 69 16 105/76 98 05/11/19 07:46 05/11/19 07:46 05/11/19 07:46 05/11/19 07:46 05/11/19 04:37 Exam: `General appearance: Present: A&O X 3, no acute distress Head exam: Present: normocephalic Respiratory exam: Present: CTAB. Absent: accessory muscle use, rales, rhonchi, wheezes Cardiovascular exam: Present: RRR, +S1, +S2. Absent: diastolic murmur, gallop, rubs, systolic murmur GI/Abdominal exam: Soft, NT, ND, +BS Extremities exam: trace pedal edema Neurological exam: Present: alert, oriented X3, no focal deficits. Absent: altered - Assessment and Plan (1) Acute on chronic systolic (congestive) heart failure Current Visit: Yes Status: Acute Assessment and Plan: SOB associated with progressive worsening of lower extremity edema, most likely secondary to CHF exacerbation Continue diuresis with lasix BID. repeat echo this am showed worsening EF of 15% down from 20-25% about 3 months ago INR still elevated at 1.9 today, cardiology holding cath till INR trends down PAtient has a mechanical valve so will continue bridging with heparin (2) S/P MVR (mitral valve replacement) Current Visit: Yes Status: Chronic Assessment and Plan: Hold warfarin and continue heparin bridge (3) HTN (hypertension) Current Visit: Yes Status: Chronic Assessment and Plan: Continue home meds (4) Bronchitis Current Visit: Yes Status: Acute Assessment and Plan: We will start the patient in when necessary DuoNeb. (5) Elevated troponin Current Visit: Yes Status: Acute Assessment and Plan: Likely demand ischemia. No acute intervention (6) DVT prophylaxis Current Visit: Yes Status: Acute Assessment and Plan: On warfarin - Time Spent with Patient Total time spent is greater than 50% in coordination of care (as documented) at patient's floor/unit and/or counseling patient: Internal Medicine: Result - Labs CBC & Chem 7: 05/11/19 04:29 05/11/19 04:29 Labs: Short CBC 05/11/19 Range/Units 04:29 WBC 3.4 L (4.3-11.1) K/mcL Hgb 11.0 L (11.5-15.4) g/dL Hct 35.2 L (35.3-44.9) % Plt Count 213 (140-400) K/mcL Neutrophils # 1.5 L (1.6-8.9) K/mcL BMP 05/11/19 04:29 Sodium 139 Potassium 4.2 Chloride 108 H Carbon Dioxide 25 BUN 14 Creatinine 0.77 Glucose 77 Calcium 9.7 - ABG Interpretation ABG results: PT/INR, D-dimer PT 22.0 Seconds (9.4-12.1) H 05/11/19 04:29 1253 ng/mLFEU (0-500) H 05/08/19 10:55 Consult Discharge Plan - Plan Referrals: NONE,PCP [Primary Care Provider] - (3) HTN (hypertension) Qualifiers: Hypertension type: essential hypertension Qualified Code(s): I10 - Essential (primary) hypertension
[2019-05-11] MEDS: Spironolactone 25 MG TABLET PO SCH (09:00)
[2019-05-11] MEDS ORDERED: *HR* Heparin 5,000 UNIT/ML VIAL IVP PRN ×2 (09:15)
[2019-05-11] MEDS ORDERED: *HR* Heparin 5,000 UNIT/ML VIAL IVP ONE (09:15)
--- NOTE | 2019-05-11 11:15 | Cardiology Progress Note ---
Date of Encounter: 05/11/19 Time of Encounter: 11:14 Assessment and Plan (1) Biventricular CHF (congestive heart failure) Current Visit: Yes Status: Acute Per cardiology: -Acute on chronic biventricular heart failure exacerbation. -Patient feels better from a congestive standpoint. Remains mildly volume overloaded on exam. -She will continue Toprol. Also recommend addition of Entresto which was approved by her insurance recently as an outpatient - will stop lisinopril for 36h washout and wait until after LHC. -ON IV lasix, Continue spironolactone - consider increasing once BP normalizes. Will need recommendations for PO diuretic prior to discharge. Currently net negative ~1.5L. -Recent Echo reviewed, EF ~15%. LV systolic function has slowly declined over the last few Echo evaluations. She has a history of mild CAD by LHC in 2012 do cumented by outpatient records from [place]. -Discussed pursuing LHC for an ischemic evaluation given further reduction in systolic function. Patient in agreement. Will plan for LHC once able with INR. INR today 1.9. Discussed with , states ok for diagnostic only LHC. Discussed with patient who states she would like to wait until INR at level that she could have intervention if needed. Plan for possible LHC on Tuesday. (2) S/P MVR (mitral valve replacement) Current Visit: Yes Status: Chronic Per cardiology: -History of RHD s/p mechanical mitral valve. -Goal INR 2.5-3.5, INR was subtherapeutic on admission and patient was started on heparin drip. -INR now 1.9. -Recommend holding coumadin at this time so patient can undergo LHC. -Started heparin drip for subtherapeutic INR. Continue heparin. Of note, will need bridged with heparin post LHC also. (3) Atrial fibrillation Current Visit: No Status: Acute Per cardiology: -Known history of rate controlled atrial fibrillation. Anticoagulated with coumadin. Qualifiers: Atrial fibrillation type: chronic Qualified Code(s): I48.2 - Chronic atrial fibrillation (4) Elevated troponin Current Visit: Yes Status: Acute Per cardiology: -Mild, adynamic troponin elevation in the setting of CHF. -Denies chest pain, -No acute ischemic ECG changes noted. -Demand ischemia, no cardiac rehab consult warranted. Discussion w patient/family: The assessment and plan as outlined above was discussed with the patient who expressed understanding and agreement. All questions were answered. Thank you for involving us in the care of your patient. Please call with any questions. Discussed and reviewed with Subjective Principal diagnosis: CHF Interval history: Patient reports shortness of breath and edema are improved today. Objective Vital Signs, Last 4 Hours Temp Pulse Resp BP 05/11/19 10:56 97.9 F 69 18 118/82 05/11/19 07:46 98.2 F 69 16 105/76 General: Conversant, No Apparent Distress HEENT: Atraumatic, Normocephaly, Mucus Membranes Moist Neck: No JVD, Normal carotid pulses Cardiac: Reg Rate and Rhythm, Normal S1 and S2, No Murmur Lungs: Normal Breath Sounds, No Wheeze, Rales, Rhonchi Neuro: Alert and responsive, No focal deficits noted Abdomen: Soft, Non-Tender Skin: No rashes noted on visualized skin Musculoskeletal: No Chest Wall Tenderness Extremities: No Clubbing, No Cyanosis, Normal Pulses, Other (Mild bilateral lower extremity edema noted, non-pitting. ) Results 05/11/19 04:29 05/11/19 04:29 Lab Results Active Medications Acetaminophen (Tylenol) 650 mg PO Q6HR PRN PRN Reason: Fever Stop: 11/08/19 09:07 Last Admin: 05/10/19 22:28 Dose: 650 mg Documented by: Albuterol/Ipratropium (Duoneb) 3 ml IH [id number] PRN PRN Reason: Shortness Of Breath/Wheezing Stop: 11/08/19 06:39 Digoxin (Lanoxin) 0.125 mg PO DAILY [facility] Stop: 11/08/19 09:01 Last Admin: 05/11/19 08:42 Dose: 0.125 mg Documented by: Furosemide (Lasix) 40 mg IVP BIDDIURETIC [facility] Stop: 11/07/19 17:31 Last Admin: 05/10/19 17:10 Dose: Not Given Documented by: Heparin Sodium (Porcine) (Heparin) 5,200 unit 70 unit/kg (5200 unit) IVP Q6HR PRN PRN Reason: SEE COMMENTS Stop: 11/10/19 09:16 Heparin Sodium (Porcine) (Heparin) 2,600 unit 35 unit/kg (2600 unit) IVP Q6H PRN PRN Reason: SEE COMMENTS Stop: 11/10/19 09:16 Heparin Sodium/Dextrose (Heparin 25,000 Unit/250 Ml D5w) 25,000 unit in 250 mls @ 10.36 mls/hr IVC .Q24H [facility]; Protocol Stop: 11/10/19 09:16 Metoprolol Succinate (Toprol Xl) 100 mg PO DAILY [facility] Stop: 11/08/19 09:01 Last Admin: 05/11/19 08:42 Dose: 100 mg Documented by: Naloxone HCl (Narcan) 0.4 mg IVP Q2MPRN PRN PRN Reason: SEE COMMENTS Stop: 11/07/19 15:31 Omeprazole (Prilosec) 40 mg PO DAILY PRN PRN Reason: Heartburn Ondansetron HCl (Zofran) 4 mg IVP Q8HR PRN PRN Reason: Nausea And Vomiting Stop: 11/07/19 15:31 Simvastatin (Zocor) 10 mg PO DAILY@2100 [facility] Stop: 11/07/19 21:01 Last Admin: 05/10/19 20:40 Dose: 10 mg Documented by: Spironolactone (Aldactone) 12.5 mg PO DAILY [facility] Stop: 11/08/19 09:01 Last Admin: 05/10/19 08:43 Dose: 12.5 mg Documented by: Laboratory Tests 05/11/19 05/11/19 05/11/19 04:29 04:29 04:29 Hgb 11.0 L INR 1.9 Creatinine 0.77 - Imaging and Cardiology Chest Xray: report reviewed Echo: report reviewed - EKG Interpretation EKG results cardiology: other (Telemetry reviewed with average HR previous 12 hours noted to be 72, paced rhythm with underlying a.fib. PVCs noted.) Consult Discharge Plan - Plan Referrals: NONE,PCP [Primary Care Provider] -
[2019-05-11] MEDS: Heparin 25,000 UNIT/250 ML D5W 25,000 UNIT/250 ML IV.SOLN IVC SCH (13:14)
[2019-05-12 04:36] LABS: Basophils % 0.7 %; Eosinophils # 0.3 K/mcL (0.0-0.6); Eosinophils % 6.2 %; Hematocrit 35.9 % (35.3-44.9); Hemoglobin 11.3 g/dL (11.5-15.4); Immature Granulocytes % 0.2 % (0-4); Lymphocytes # 1.7 K/mcL (0.6-4.6); Lymphocytes % 38.5 %; Mean Corpuscular HGB Conc 31.5 g/dL (31.6-35.5); Mean Corpuscular Hemoglobin 29.7 pg (28.0-33.3); Mean Corpuscular Volume 94.5 fL (83.0-100.0); Mean Platelet Volume 9.8 fL (9.4-12.4); Monocytes # 0.4 K/mcL (0.0-1.3); Monocytes % 9.8 %; Platelet Count 221 K/mcL (140-400); Red Cell Distribution Width 17.1 % (11.5-14.5); Segmented Neutrophils % 44.6 %; White Blood Count 4.5 K/mcL (4.3-11.1)
[2019-05-12 04:51] LABS: Heparin anti-factor XA UFH 0.73 IU/mL (0.30-0.70)
[2019-05-12 04:52] LABS: INR 1.7; Prothrombin Time 19.5 Seconds (9.4-12.1)
[2019-05-12 04:56] LABS: BUN/Creatinine Ratio 18 (6-26); Blood Urea Nitrogen 15 mg/dL (6-20); Carbon Dioxide 27 mEq/L (23-29); Chloride 105 mEq/L (98-107); Glucose 83 mg/dL (70-105); Magnesium 1.8 mg/dL (1.6-2.6); Osmolality,Calculated 288 (280-300); Phosphorous 3.6 mg/dL (2.7-4.5); Potassium 4.2 mEq/L (3.5-5.1); Sodium 139 mEq/L (136-145); eGFR For African Americans > 60 (> 60); eGFR For Non-African Americans > 60 (> 60)
[2019-05-12 05:15] LABS: Platelet Estimate Normal (Normal)
[2019-05-12 05:16] LABS: Anisocytosis 1+ (Not Present); Reactive Lymphocytes Present (Not Present)
[2019-05-12] MEDS: *HR* Digoxin 0.125 MG TABLET PO SCH (08:16)
[2019-05-12] MEDS: Spironolactone 25 MG TABLET PO SCH (08:16)
[2019-05-12] MEDS: Metoprolol XL (24 HR) Succ 50 MG TAB.ER.24H PO SCH (08:16)
[2019-05-12] MEDS: Furosemide 40 MG/4 ML VIAL IVP SCH ×2 (08:17→16:42)
[2019-05-12 08:24] LABS: Bilirubin,Urine Small (Negative); Blood,Urine Large (Negative); Color,Urine Dark Yellow (Yellow); Glucose,Urine (UA) Normal (Normal); Ketones,Urine Negative (Negative); Leukocyte Esterase,Urine Moderate (Negative); Nitrite,Urine Negative (Negative); Protein,Urine 30 mg/dL (Neg-Trace); Specific Gravity,Urine < 1.005 (1.010-1.025); Urobilinogen,Urine >=8.0 mg/dL (Normal)
[2019-05-12 08:27] LABS: Bacteria,Urine None Seen per hpf (None-Few); Hyaline Casts,Urine None Seen per lpf (None-Few); RBC,Urine TNTC per hpf (0-3); Squamous Epithelial Cell,Urine Many per lpf (None-Few); WBC,Urine 30-50 per hpf (0-3)
[2019-05-12 08:29] LABS: Clarity,Urine Slightly Cloudy (Clear)
--- NOTE | 2019-05-12 08:39 | Internal Med Progress Note ---
Hospitalist Progress Note - Encounter Date of Encounter: 05/12/19 Time of Encounter: 09:30 - Subjective Interval History: No acute events overnight - Exam Vitals: Temp Pulse Resp BP Pulse Ox 98.2 F 69 14 117/83 97 05/12/19 06:39 05/12/19 06:39 05/12/19 06:39 05/12/19 06:39 05/12/19 06:39 Exam: `General appearance: Present: A&O X 3, no acute distress Head exam: Present: normocephalic Respiratory exam: Present: CTAB. Absent: accessory muscle use, rales, rhonchi, wheezes Cardiovascular exam: Present: RRR, +S1, +S2. Absent: diastolic murmur, gallop, rubs, systolic murmur GI/Abdominal exam: Soft, NT, ND, +BS Extremities exam: trace pedal edema Neurological exam: Present: alert, oriented X3, no focal deficits. Absent: altered - Assessment and Plan (1) Acute on chronic systolic (congestive) heart failure Current Visit: Yes Status: Acute Assessment and Plan: SOB associated with progressive worsening of lower extremity edema, most likely secondary to CHF exacerbation Continue diuresis with lasix BID. repeat echo this am showed worsening EF of 15% down from 20-25% about 3 months ago INR still elevated at 1.9 today, cardiology holding cath till INR trends down Patient has a mechanical valve so will continue bridging with heparin 05/12. INR trended down to 1.7. Plan for cath on tuesday (2) S/P MVR (mitral valve replacement) Current Visit: Yes Status: Chronic Assessment and Plan: Hold warfarin and continue heparin bridge (3) HTN (hypertension) Current Visit: Yes Status: Chronic Assessment and Plan: Continue home meds (4) Bronchitis Current Visit: Yes Status: Acute Assessment and Plan: We will start the patient in when necessary DuoNeb. (5) Elevated troponin Current Visit: Yes Status: Acute Assessment and Plan: Likely demand ischemia. No acute intervention (6) DVT prophylaxis Current Visit: Yes Status: Acute Assessment and Plan: On warfarin - Time Spent with Patient Total time spent is greater than 50% in coordination of care (as documented) at patient's floor/unit and/or counseling patient: Internal Medicine: Result - Labs CBC & Chem 7: 05/12/19 04:05 05/12/19 04:05 Labs: Short CBC 05/12/19 Range/Units 04:05 WBC 4.5 (4.3-11.1) K/mcL Hgb 11.3 L (11.5-15.4) g/dL Hct 35.9 (35.3-44.9) % Plt Count 221 (140-400) K/mcL Neutrophils # 2.0 (1.6-8.9) K/mcL BMP 05/12/19 04:05 Sodium 139 Potassium 4.2 Chloride 105 Carbon Dioxide 27 BUN 15 Creatinine 0.83 Glucose 83 Calcium 10.0 Urine 05/12/19 Range/Units Unknown Urine Color Dark Yellow (Yellow) Urine Clarity Slightly Cloudy A (Clear) Urine pH 7.0 (5.0-8.0) pH Units Ur Specific [place] < 1.005 L (1.010-1.025) Urine Protein 30 H (Neg-Trace) mg/dL Urine Glucose (UA) Normal (Normal) mg/dL - ABG Interpretation ABG results: PT/INR, D-dimer PT 19.5 Seconds (9.4-12.1) H 05/12/19 04:05 1253 ng/mLFEU (0-500) H 05/08/19 10:55 Consult Discharge Plan - Plan Referrals: NONE,PCP [Primary Care Provider] - (3) HTN (hypertension) Qualifiers: Hypertension type: essential hypertension Qualified Code(s): I10 - Essential (primary) hypertension
--- NOTE | 2019-05-12 09:20 | Cardiology Progress Note ---
Date of Encounter: 05/12/19 Time of Encounter: 09:17 Assessment and Plan (1) Biventricular CHF (congestive heart failure) Current Visit: Yes Status: Acute Per cardiology: Acute on chronic biventricular heart failure exacerbation. On Toprol. Recommend Entresto--approved by her insurance recently as outpatient. Stop lisinopril for 36h washout and wait until after LHC. Symptoms improving on IV lasix 40mg BID. Continue spironolactone - consider increasing once BP normalizes. Currently net negative ~3.5L. Recent TTE EF ~15%. EF has slowly declined. Hx of mild CAD by [facility] in 2013 documented by outpatient records from [place]. Discussed pursuing LHC for an ischemic evaluation given further reduction in systolic function. Patient in agreement. LHC once INR allows. INR 1.7 today. Continue heparin gtt. Will plan for LHC Tuesday. (2) S/P MVR (mitral valve replacement) Current Visit: Yes Status: Chronic Per cardiology: History of RHD s/p mechanical mitral valve. Goal INR 2.5-3.5, INR was subtherapeutic on admission and patient was started on heparin drip. INR now 1.7. Recommend holding coumadin at this time so patient can undergo LHC. Continue heparin. Of note, will need bridged with heparin post LHC also. (3) Elevated troponin Current Visit: Yes Status: Acute Per cardiology: Mild, adynamic troponin elevation in the setting of CHF. Denies chest pain. No acute ischemic ECG changes noted. Demand ischemia, no cardiac rehab consult warranted. (4) Atrial fibrillation Current Visit: No Status: Acute Per cardiology: Known history of rate controlled atrial fibrillation. Anticoagulated with coumadin currently on hold as above. On heparin gtt. Qualifiers: Atrial fibrillation type: chronic Qualified Code(s): I48.2 - Chronic atrial fibrillation Discussion w patient/family: The assessment and plan as outlined above was discussed with the patient and/or family members who expressed understanding and agreement. All questions were answered. Thank you for involving us in the care of your patient. Please call with any questions. I will discuss all the above with Dr. Santos and make changes as necessary. Subjective Principal diagnosis: CHF Interval history: Denies chest pain overnight. Reports dyspnea is improving. Objective Vital Signs, Last 4 Hours Temp Pulse Resp BP Pulse Ox 05/12/19 06:39 98.2 F 69 14 117/83 97 05/12/19 05:59 98.5 F 73 18 115/75 Vital Signs Temp Pulse Resp BP Pulse Ox 05/12/19 06:39 98.2 F 69 14 117/83 97 05/12/19 05:59 98.5 F 73 18 115/75 05/11/19 20:13 97.6 F 70 16 105/65 99 05/11/19 15:57 97.7 F 69 16 95/58 05/11/19 10:56 97.9 F 69 18 118/82 Intake and Output 05/11/19 05/12/19 05/12/19 23:59 07:59 15:59 Intake Total 410 / 650 150 / 150 Output Total 2400 / 2700 100 / 100 Balance -1989 / 50 / 50 Intake: IV Fluids 50 / 50 150 / 150 Heparin 25,000 UNIT/250 ML D5W 50 / 50 150 / 150 25,000 unit In 250 ml @ 14 UNIT /KG/HR 10.36 mls/hr IVC .Q24H [facility] Rx#:[id number] Oral 360 / 600 0 / 0 Output: Urine 2400 / 2700 100 / 100 Other: Meal Dinner Percent of Meal Consumed 95% Weight 74.5 kg Patient Weight 05/12/19 23:59 Weight 74.5 kg General: Conversant, No Apparent Distress HEENT: Atraumatic, Normocephaly, Mucus Membranes Moist Neck: No JVD, Normal carotid pulses Cardiac: Reg Rate and Rhythm, Normal S1 and S2, No Murmur Lungs: Other (diminished) Neuro: Alert and responsive, No focal deficits noted Abdomen: Soft, Non-Tender Skin: No rashes noted on visualized skin Musculoskeletal: No Chest Wall Tenderness Extremities: No Clubbing, No Cyanosis, Normal Pulses, Other (mild BLE edema) Results 05/12/19 04:05 05/12/19 04:05 Lab Results 05/12/19 05/12/19 05/12/19 04:05 04:05 04:05 WBC 4.5 Hgb 11.3 L Hct 35.9 Plt Count 221 INR 1.7 Sodium 139 Potassium 4.2 Chloride 105 Carbon Dioxide 27 BUN 15 Creatinine 0.83 Glucose 83 Calcium 10.0 Magnesium 1.8 Short CBC 05/12/19 Range/Units 04:05 WBC 4.5 (4.3-11.1) K/mcL Hgb 11.3 L (11.5-15.4) g/dL Hct 35.9 (35.3-44.9) % Plt Count 221 (140-400) K/mcL Neutrophils # 2.0 (1.6-8.9) K/mcL BMP 05/12/19 Range/Units 04:05 Sodium 139 (136-145) mEq/L Potassium 4.2 (3.5-5.1) mEq/L Chloride 105 (98-107) mEq/L Carbon Dioxide 27 (23-29) mEq/L BUN 15 (6-20) mg/dL Creatinine 0.83 (0.60-1.20) mg/dL Glucose 83 (70-105) mg/dL Calcium 10.0 (8.6-10.3) mg/dL Urine 05/12/19 Range/Units Unknown Urine Color Dark Yellow (Yellow) Urine Clarity Slightly Cloudy A (Clear) Urine pH 7.0 (5.0-8.0) pH Units Ur Specific [place] < 1.005 L (1.010-1.025) Urine Protein 30 H (Neg-Trace) mg/dL Urine Glucose (UA) Normal (Normal) mg/dL Active Medications Acetaminophen (Tylenol) 650 mg PO Q6HR PRN PRN Reason: Fever Stop: 11/08/19 09:07 Last Admin: 05/10/19 22:28 Dose: 650 mg Documented by: Albuterol/Ipratropium (Duoneb) 3 ml IH [id number] PRN PRN Reason: Shortness Of Breath/Wheezing Stop: 11/08/19 06:39 Digoxin (Lanoxin) 0.125 mg PO DAILY [facility] Stop: 11/08/19 09:01 Last Admin: 05/12/19 08:16 Dose: 0.125 mg Documented by: Furosemide (Lasix) 40 mg IVP BIDDIURETIC [facility] Stop: 11/07/19 17:31 Last Admin: 05/12/19 08:17 Dose: 40 mg Documented by: Heparin Sodium (Porcine) (Heparin) 5,200 unit 70 unit/kg (5200 unit) IVP Q6HR PRN PRN Reason: SEE COMMENTS Stop: 11/10/19 09:16 Heparin Sodium (Porcine) (Heparin) 2,600 unit 35 unit/kg (2600 unit) IVP Q6H PRN PRN Reason: SEE COMMENTS Stop: 11/10/19 09:16 Heparin Sodium/Dextrose (Heparin 25,000 Unit/250 Ml D5w) 25,000 unit in 250 mls @ 10.36 mls/hr IVC .Q24H [facility]; Protocol Stop: 11/10/19 09:16 Last Titration: 05/12/19 05:05 Dose: 9 unit/kg/hr, 6.7 mls/hr Documented by: Metoprolol Succinate (Toprol Xl) 100 mg PO DAILY [facility] Stop: 11/08/19 09:01 Last Admin: 05/12/19 08:16 Dose: 100 mg Documented by: Naloxone HCl (Narcan) 0.4 mg IVP Q2MPRN PRN PRN Reason: SEE COMMENTS Stop: 11/07/19 15:31 Omeprazole (Prilosec) 40 mg PO DAILY PRN PRN Reason: Heartburn Ondansetron HCl (Zofran) 4 mg IVP Q8HR PRN PRN Reason: Nausea And Vomiting Stop: 11/07/19 15:31 Simvastatin (Zocor) 10 mg PO DAILY@2100 [facility] Stop: 11/07/19 21:01 Last Admin: 05/11/19 21:02 Dose: 10 mg Documented by: Spironolactone (Aldactone) 12.5 mg PO DAILY [facility] Stop: 11/08/19 09:01 Last Admin: 05/12/19 08:16 Dose: 12.5 mg Documented by: - Imaging and Cardiology Echo: report reviewed - EKG Interpretation EKG results cardiology: other (12 hr tele AVG HR 70, paced) Consult Discharge Plan - Plan Referrals: NONE,PCP [Primary Care Provider] -
[2019-05-12] MEDS: Heparin 25,000 UNIT/250 ML D5W 25,000 UNIT/250 ML IV.SOLN IVC SCH (19:15)
[2019-05-13 06:43] LABS: Basophils % 0.8 %; Eosinophils # 0.3 K/mcL (0.0-0.6); Eosinophils % 5.5 %; Hematocrit 36.5 % (35.3-44.9); Hemoglobin 11.5 g/dL (11.5-15.4); Lymphocytes % 34.5 %; Mean Corpuscular HGB Conc 31.5 g/dL (31.6-35.5); Mean Corpuscular Hemoglobin 29.3 pg (28.0-33.3); Mean Corpuscular Volume 93.1 fL (83.0-100.0); Mean Platelet Volume 9.7 fL (9.4-12.4); Monocytes # 0.5 K/mcL (0.0-1.3); Monocytes % 10.5 %; Neutrophils # 2.3 K/mcL (1.6-8.9); Platelet Count 221 K/mcL (140-400); Red Blood Count 3.92 M/mcL (3.82-4.97); Red Cell Distribution Width 16.9 % (11.5-14.5); Segmented Neutrophils % 48.7 %; White Blood Count 4.8 K/mcL (4.3-11.1)
[2019-05-13 06:44] LABS: Lymphocytes # 1.7 K/mcL (0.6-4.6)
[2019-05-13 06:55] LABS: INR 1.5; Prothrombin Time 17.6 Seconds (9.4-12.1)
[2019-05-13 07:05] LABS: BUN/Creatinine Ratio 18 (6-26); Blood Urea Nitrogen 13 mg/dL (6-20); Calcium 10.3 mg/dL (8.6-10.3); Carbon Dioxide 28 mEq/L (23-29); Chloride 105 mEq/L (98-107); Glucose 84 mg/dL (70-105); Magnesium 1.8 mg/dL (1.6-2.6); Osmolality,Calculated 289 (280-300); Phosphorous 3.4 mg/dL (2.7-4.5); Potassium 4.1 mEq/L (3.5-5.1); Sodium 140 mEq/L (136-145); eGFR For African Americans > 60 (> 60); eGFR For Non-African Americans > 60 (> 60)
[2019-05-13 07:15] LABS: Hypochromasia Present (Not Present); Platelet Estimate Normal (Normal)
[2019-05-13 07:16] LABS: Reactive Lymphocytes Present (Not Present)
--- NOTE | 2019-05-13 07:48 | Event Note ---
Date of Encounter: 05/13/19 Time of Encounter: 07:47 - Cardiology Event Note INR 1.5. On heparin gtt for bridging with mechanical MVR. Plan for [facility] tomorrow. R/B/A discussed. Pt agrees to proceed. NPO after midnight.
[2019-05-13] MEDS: Spironolactone 25 MG TABLET PO SCH (08:30)
[2019-05-13] MEDS: Metoprolol XL (24 HR) Succ 50 MG TAB.ER.24H PO SCH (08:30)
[2019-05-13] MEDS: *HR* Digoxin 0.125 MG TABLET PO SCH (08:30)
[2019-05-13] MEDS: Furosemide 40 MG/4 ML VIAL IVP SCH ×2 (08:30→17:53)
[2019-05-13] MEDS: Acetaminophen 325 MG TABLET PO PRN (09:31)
--- NOTE | 2019-05-13 12:45 | Internal Med Progress Note ---
Hospitalist Progress Note - Encounter Date of Encounter: 05/13/19 Time of Encounter: 11:00 - Subjective Interval History: No acute events overnight - Exam Vitals: Temp Pulse Resp BP Pulse Ox 98.0 F 75 14 99/57 92 05/13/19 12:07 05/13/19 12:07 05/13/19 12:07 05/13/19 12:07 05/13/19 12:07 Exam: `General appearance: Present: A&O X 3, no acute distress Head exam: Present: normocephalic Respiratory exam: Present: CTAB. Absent: accessory muscle use, rales, rhonchi, wheezes Cardiovascular exam: Present: RRR, +S1, +S2. Absent: diastolic murmur, gallop, rubs, systolic murmur GI/Abdominal exam: Soft, NT, ND, +BS Extremities exam: trace pedal edema Neurological exam: Present: alert, oriented X3, no focal deficits. Absent: altered - Assessment and Plan (1) Acute on chronic systolic (congestive) heart failure Current Visit: Yes Status: Acute Assessment and Plan: SOB associated with progressive worsening of lower extremity edema, most likely secondary to CHF exacerbation Continue diuresis with lasix BID. repeat echo this am showed worsening EF of 15% down from 20-25% about 3 months ago INR still elevated at 1.9 today, cardiology holding cath till INR trends down Patient has a mechanical valve so will continue bridging with heparin 05/13. INR trended down to 1.5. Plan for cath on tuesday (2) S/P MVR (mitral valve replacement) Current Visit: Yes Status: Chronic Assessment and Plan: Hold warfarin and continue heparin bridge (3) HTN (hypertension) Current Visit: Yes Status: Chronic Assessment and Plan: Continue home meds (4) Bronchitis Current Visit: Yes Status: Acute Assessment and Plan: We will start the patient in when necessary DuoNeb. (5) Elevated troponin Current Visit: Yes Status: Acute Assessment and Plan: Likely demand ischemia. No acute intervention (6) DVT prophylaxis Current Visit: Yes Status: Acute Assessment and Plan: On warfarin - Time Spent with Patient Total time spent is greater than 50% in coordination of care (as documented) at patient's floor/unit and/or counseling patient: Internal Medicine: Result - Labs CBC & Chem 7: 05/13/19 06:18 05/13/19 06:18 Labs: Short CBC 05/13/19 Range/Units 06:18 WBC 4.8 (4.3-11.1) K/mcL Hgb 11.5 (11.5-15.4) g/dL Hct 36.5 (35.3-44.9) % Plt Count 221 (140-400) K/mcL Neutrophils # 2.3 (1.6-8.9) K/mcL BMP 05/13/19 06:18 Sodium 140 Potassium 4.1 Chloride 105 Carbon Dioxide 28 BUN 13 Creatinine 0.72 Glucose 84 Calcium 10.3 - ABG Interpretation ABG results: PT/INR, D-dimer PT 17.6 Seconds (9.4-12.1) H 05/13/19 06:18 1253 ng/mLFEU (0-500) H 05/08/19 10:55 Consult Discharge Plan - Plan Referrals: NONE,PCP [Primary Care Provider] -
[2019-05-13] MEDS: Heparin 25,000 UNIT/250 ML D5W 25,000 UNIT/250 ML IV.SOLN IVC SCH (17:52)
[2019-05-14 07:39] LABS: Basophils % 0.8 %; Eosinophils # 0.2 K/mcL (0.0-0.6); Eosinophils % 4.7 %; Immature Granulocytes % 0.4 % (0-4); Lymphocytes # 1.3 K/mcL (0.6-4.6); Mean Corpuscular HGB Conc 31.3 g/dL (31.6-35.5); Mean Corpuscular Hemoglobin 29.2 pg (28.0-33.3); Mean Corpuscular Volume 93.4 fL (83.0-100.0); Mean Platelet Volume 9.9 fL (9.4-12.4); Monocytes # 0.7 K/mcL (0.0-1.3); Monocytes % 13.5 %; Neutrophils # 2.8 K/mcL (1.6-8.9); Platelet Count 232 K/mcL (140-400); Red Blood Count 4.07 M/mcL (3.82-4.97); Red Cell Distribution Width 16.7 % (11.5-14.5); Segmented Neutrophils % 54.6 %
[2019-05-14 07:42] LABS: Hemoglobin 11.9 g/dL (11.5-15.4); White Blood Count 5.1 K/mcL (4.3-11.1)
[2019-05-14 07:48] LABS: INR 1.5
--- NOTE | 2019-05-14 07:57 | Internal Med Progress Note ---
Hospitalist Progress Note - Encounter Date of Encounter: 05/14/19 Time of Encounter: 08:00 - Subjective Interval History: No acute events overnight - Exam Vitals: Temp Pulse Resp BP Pulse Ox 98.0 F 73 16 104/68 94 05/14/19 07:35 05/14/19 07:35 05/14/19 07:35 05/14/19 07:35 05/13/19 15:47 Exam: `General appearance: Present: A&O X 3, no acute distress Head exam: Present: normocephalic Respiratory exam: Present: CTAB. Absent: accessory muscle use, rales, rhonchi, wheezes Cardiovascular exam: Present: RRR, +S1, +S2. Absent: diastolic murmur, gallop, rubs, systolic murmur GI/Abdominal exam: Soft, NT, ND, +BS Extremities exam: trace pedal edema Neurological exam: Present: alert, oriented X3, no focal deficits. Absent: altered - Assessment and Plan (1) Acute on chronic systolic (congestive) heart failure Current Visit: Yes Status: Acute Assessment and Plan: SOB associated with progressive worsening of lower extremity edema, most likely secondary to CHF exacerbation Continue diuresis with lasix BID. repeat echo this am showed worsening EF of 15% down from 20-25% about 3 months ago INR still elevated at 1.9 today, cardiology holding cath till INR trends down Patient has a mechanical valve so will continue bridging with heparin 05/14. INR trended down to 1.5. Plan for cath today (2) S/P MVR (mitral valve replacement) Current Visit: Yes Status: Chronic Assessment and Plan: Hold warfarin and continue heparin bridge (3) HTN (hypertension) Current Visit: Yes Status: Chronic Assessment and Plan: Continue home meds (4) Bronchitis Current Visit: Yes Status: Acute Assessment and Plan: We will start the patient in when necessary DuoNeb. (5) Elevated troponin Current Visit: Yes Status: Acute Assessment and Plan: Likely demand ischemia. No acute intervention (6) DVT prophylaxis Current Visit: Yes Status: Acute Assessment and Plan: On warfarin - Time Spent with Patient Total time spent is greater than 50% in coordination of care (as documented) at patient's floor/unit and/or counseling patient: Internal Medicine: Result - Labs CBC & Chem 7: 05/14/19 07:13 05/14/19 07:13 Labs: Short CBC 05/14/19 05/14/19 Range/Units 05:56 07:13 WBC TNP 5.1 Hgb TNP 11.9 Hct TNP 38.0 Plt Count TNP 232 Neutrophils # TNP 2.8 BMP 05/14/19 05:56 Sodium TNP Potassium TNP Chloride TNP Carbon Dioxide TNP BUN TNP Creatinine TNP Glucose TNP Calcium TNP - ABG Interpretation ABG results: PT/INR, D-dimer PT 17.0 Seconds (9.4-12.1) H 05/14/19 07:13 1253 ng/mLFEU (0-500) H 05/08/19 10:55 Consult Discharge Plan - Plan Referrals: NONE,PCP [Primary Care Provider] - (3) HTN (hypertension) Qualifiers: Hypertension type: essential hypertension Qualified Code(s): I10 - Essential (primary) hypertension
[2019-05-14 07:58] LABS: BUN/Creatinine Ratio 24 (6-26); Blood Urea Nitrogen 22 mg/dL (6-20); Calcium 10.6 mg/dL (8.6-10.3); Carbon Dioxide 30 mEq/L (23-29); Chloride 101 mEq/L (98-107); Glucose 86 mg/dL (70-105); Magnesium 1.9 mg/dL (1.6-2.6); Osmolality,Calculated 293 (280-300); Phosphorous 4.3 mg/dL (2.7-4.5); Potassium 4.3 mEq/L (3.5-5.1); Sodium 140 mEq/L (136-145); eGFR For African Americans > 60 (> 60); eGFR For Non-African Americans > 60 (> 60)
[2019-05-14] MEDS: Furosemide 40 MG/4 ML VIAL IVP SCH (08:38)
[2019-05-14] MEDS: Spironolactone 25 MG TABLET PO SCH (08:39)
[2019-05-14] MEDS: *HR* Digoxin 0.125 MG TABLET PO SCH (08:39)
[2019-05-14] MEDS: Acetaminophen 325 MG TABLET PO PRN (08:39)
[2019-05-14] MEDS: Metoprolol XL (24 HR) Succ 50 MG TAB.ER.24H PO SCH (08:39)
[2019-05-14] MEDS ORDERED: *HR* Midazolam HCl 2 MG/2 ML VIAL ONE ×2 (15:15→15:39)
[2019-05-14] MEDS ORDERED: Verapamil 5 MG/2 ML VIAL ONE (15:15)
[2019-05-14] MEDS ORDERED: Heparin 1,000 UNITS/500 mL 500 ML ONE (15:16)
[2019-05-14] MEDS ORDERED: ISOVUE-370 200 ML INFUS..BTL ONE (15:16)
[2019-05-14] MEDS ORDERED: 0.9 % Sodium Chloride 1,000 ML ONE (15:16)
[2019-05-14] MEDS ORDERED: *HR* FentaNYL (PF) 100 MCG/2 ML VIAL ONE (15:16)
[2019-05-14] MEDS ORDERED: Nitroglycerin 1,000 MCG/10 ML VIAL IV ONE (15:16)
[2019-05-14] MEDS ORDERED: *HR* Heparin 10,000 UNIT/10 ML VIAL ONE (15:16)
--- NOTE | 2019-05-14 15:36 | Pre-Sedation Evaluation ---
Pre-sedation evaluation - Pre-sedation checklist Date of procedure: 05/14/19 Procedure: [place] Recent Vitals: Last Vital Signs Temp 98.7 F 05/14/19 11:13 Pulse 75 05/14/19 11:13 Resp 16 05/14/19 11:13 BP 98/58 05/14/19 11:13 Pulse Ox 94 05/13/19 15:47 H&P (including ROS) documented in medical record: Yes Previous reaction to sedatives/anesthetics: No Dietary Status: NPO after Midnight ASA Classification *see protocol: CLASS II-Mild systemic disease Plan of Care: Pt appropriate candidate for procedure/moderate/conscious sedation, Risks/benefits of procedure/sedation discussed w/ patient/family Cardiac Registry (Cardio Only) - Functional Capacity Functional Capacity: >=4 METS with symptoms - Clincal Frailty Scale Clinical Frailty Scale: Managing Well
--- NOTE | 2019-05-14 16:14 | Event Note ---
Date of Encounter: 05/14/19 Time of Encounter: 16:12 - Cardiology Event Note Discussed with , [facility] with non-obstructive CAD. NICM. Will start entresto. Continue BB. Will increase oral lasix dose from home dose. Regarding mechanical mitral valve, recommend heparin bridging until INR therapeutic 2.5-3.5, will resume coumadin pharmacy to dose. Cardiology will sign off, will arrange close outpatient follow up. Discussed with .
[2019-05-14] MEDS ORDERED: Isovue-370 500 ML BOTTLE IVP ONE (16:45)
[2019-05-14] MEDS ORDERED: Warfarin perPT PO PRN (18:00)
[2019-05-14] MEDS: Furosemide 40 MG TABLET PO SCH (18:29)
[2019-05-14] MEDS ORDERED: *HR* Warfarin 10 MG TABLET PO ONE (18:30)
[2019-05-14] MEDS: SACUBITRIL/VALSARTAN 24/26 MG TABLET PO SCH (20:47)
--- NOTE | 2019-05-14 21:14 | OB/GYN Consult Note ---
Date of Encounter: 05/14/19 Time of Encounter: 21:11 Assessment and Plan (1) Postmenopausal vaginal bleeding Current Visit: Yes Status: Acute Total infection is treated and is on heparin she will continue to have spotting. Once the infection is treated in the vagina has time to heal the bleeding will stop (2) Trichomoniasis of vagina Current Visit: Yes Status: Acute Patient was treated with Flagyl 2 g 1 dose that will treat the infection. (3) Acute on chronic systolic (congestive) heart failure Current Visit: Yes Status: Acute (4) Acute systolic heart failure Current Visit: Yes Status: Acute (5) Anticoagulant long-term use Current Visit: Yes Status: Acute (6) Biventricular CHF (congestive heart failure) Current Visit: Yes Status: Acute History of Present Illness Consult date: 05/14/19 Reason for consult: other (Post menopausal bleeding) History of present illness: Patient is a 58-year-old female postmenopausal who presented to the hospital for cardiac issues. Patient has a history of a mechanical valve and was in need for a cardiac catheter. Patient had been on warfarin need to be converted over to heparin for the surgery. Patient states that on or Tuesday last week after they initiated the heparin she started noticing a pinkish discharge from the vagina which she stated got heavier. She did eventually mention that to one of the physicians who put a consultation in. There is no documentation that anyone sure the bleeding the patient described. Patient states that when he started to happen she was also complaining of itching and pain and pruritus to the vaginal area which might have a yeast infection. Patient states prior to come to the hospital she also shaved the perineum. It is not documented in the notes the patient states that she had a hysterectomy back in 1998. Patient only has 1 ovary that she knows of. We did get a consultation to come and assess her for the postmenopausal bleeding we recommended a pelvic ultrasound to assess the uterus and ovaries but did not have the information that she had a hysterectomy prior to the ultrasound. Patient states she has had some pinkish discharge today but no heavy bleeding and no clotting. Past Med Surg Social Fam HX - Past Medical History Source: patient, old records reviewed Medical history: atrial fibrillation, cardiomyopathy, CHF, coronary artery disease, valvular heart disease, other (Pneumatic heart disease) Additional medical history: heart palps Psychiatric history: no psych history - Past Surgical History Surgical History: hysterectomy Additional surgical history: Fatty tumor in back removed. Open heart valve replacement take surgery 2 mitral 1979,. Mechanical valve placement mitral brent ve 1993. Pacemaker and defibrillator placed 2012. Right femur many replacement 1989 - Social History Smoking Status: Never smoker Smokeless Tobacco Status: No Alcohol use: none Drug use: none Current living situation: Home - Independent Activity Level: Independent ambulation Recent Out of Country Travel Within the Last 8 Weeks: No Exposure or Possible Exposure to Illness During Travel: No - Family History Father Living Status: Mother Living Status: Hx Family Cardiac Disorders: Yes Hx Family Respiratory Disorders: Yes Sister Hx Family Cardiac Disorders: Yes Brother Hx Family Cardiac Disorders: Yes Hx Family Cancer: Yes Hx Family Endocrine Disorder: Yes Medications and Allergies Furosemide [Lasix] 40 mg PO DAILY 01/21/19 [History] Lisinopril [Zestril] 40 mg PO DAILY 01/21/19 [History] Pravastatin Sodium [Pravachol] 20 mg PO DAILY 01/21/19 [History] Warfarin Sodium 10 mg PO TUTHSA 01/21/19 [History] Omeprazole [PriLOSEC] 40 mg PO QPM 01/22/19 [History] Digoxin [Lanoxin] 125 mcg PO QAM 05/08/19 [History] Metoprolol Succinate 100 mg PO DAILY 05/08/19 [History] Spironolactone [Aldactone] 12.5 mg PO QAM 05/08/19 [History] Acetaminophen [Tylenol] 500 mg PO Q6HR 05/09/19 [History] Cholecalciferol (D-3) [Vitamin D] 1,000 unit PO DAILY 05/09/19 [History] Ferrous Sulfate 325 mg PO DAILY 05/09/19 [History] Mv-Min/Iron/Folic/Calcium/Vitk [Women's Multivitamin Tablet] 1 tab PO DAILY 05/09/19 [History] Nitroglycerin 0.3 mg SL Q5MIN PRN 05/09/19 [History] Warfarin Sodium 5 mg PO SUMOWEFR 05/09/19 [History] Allergy/AdvReac Type Severity Reaction Status Date / Time loratadine [From Claritin] Allergy Palpitation Verified 05/09/19 17:08 s morphine Allergy Hives Verified 05/09/19 17:08 Review of Systems All Systems: reviewed and no additional remarkable complaints except as stated Genitourinary Female: vaginal discharge, vaginal odor, vaginal pruritis, other (Vaginal bleeding) Menstruation: post hysterectomy, post menopausal Exam - Vital Signs Vital signs: Initial Vital Signs Temp Pulse Resp BP Pulse Ox 98.5 F 118 18 154/106 94 05/08/19 10:34 05/08/19 10:34 05/08/19 10:34 05/08/19 10:34 05/08/19 10:34 - Constitutional Constitutional: well developed, well nourished, no acute distress - HEENT HEENT: Mucus Membranes Moist - Abdomen Abdomen: Present: bowel sounds normal - Vulva Vulva: bilateral: normal - Uterus Uterus exam: Present: absent - Comments Comments: Sterile speculum exam performed on the patient revealed vaginal atrophy with some excoriation noted to the crowley of the vagina with an odorous yellow white discharge noted. Wet mount was performed on the patient just touching the crowley of vagina with a Q-tip did cause some bleeding. Wet mount was performed revealing positive trichomoniasis on the slide. Results Result Diagrams: 05/14/19 07:13 05/14/19 07:13 Abnormal lab results WBC 3.4 K/mcL (4.3-11.1) L 05/11/19 04:29 RBC 3.80 M/mcL (3.82-4.97) L 05/12/19 04:05 Hgb 11.3 g/dL (11.5-15.4) L 05/12/19 04:05 Hct 35.2 % (35.3-44.9) L 05/11/19 04:29 MCHC 31.3 g/dL (31.6-35.5) L 05/14/19 07:13 RDW 16.7 % (11.5-14.5) H 05/14/19 07:13 1.5 K/mcL (1.6-8.9) L 05/11/19 04:29 Present (Not Present) A 05/13/19 06:18 Present (Not Present) A 05/13/19 06:18 1+ (Not Present) A 05/12/19 04:05 PT 17.0 Seconds (9.4-12.1) H 05/14/19 07:13 1253 ng/mLFEU (0-500) H 05/08/19 10:55 Heparin Anti-Xa, Unfract 0.04 IU/mL (0.30-0.70) L 05/14/19 17:36 Potassium 3.3 mEq/L (3.5-5.1) L 05/09/19 00:15 Chloride 108 mEq/L (98-107) H 05/11/19 04:29 Carbon Dioxide 30 mEq/L (23-29) H 05/14/19 07:13 BUN 22 mg/dL (6-20) H 05/14/19 07:13 Glucose 150 mg/dL (70-105) H 05/09/19 00:15 Calcium 10.6 mg/dL (8.6-10.3) H 05/14/19 07:13 1.9 mg/dL (0.3-1.0) H 05/09/19 00:15 0.06 ng/mL (< 0.04) H* 05/09/19 00:15 B-Natriuretic Peptide 982 pg/mL (Less than 100) H 05/09/19 00:15 6.1 g/dL (6.4-8.9) L 05/09/19 00:15 24 mg/dL (40-59) L 05/09/19 00:15 Slightly Cloudy (Clear) A 05/12/19 Unknown Ur Specific [place] < 1.005 (1.010-1.025) L 05/12/19 Unknown 30 mg/dL (Neg-Trace) H 05/12/19 Unknown Large (Negative) H 05/12/19 Unknown Small (Negative) H 05/12/19 Unknown >=8.0 mg/dL (Normal) H 05/12/19 Unknown Ur Leukocyte Esterase Moderate (Negative) H 05/12/19 Unknown TNTC per hpf (0-3) H 05/12/19 Unknown 30-50 per hpf (0-3) H 05/12/19 Unknown Ur Squamous Epith Cells Many per lpf (None-Few) H 05/12/19 Unknown Ur Culture Indicated? YES (NO) A 05/12/19 Unknown All other labs normal. Consult Discharge Plan - Plan Referrals: NONE,PCP [Primary Care Provider] -
[2019-05-14] MEDS ORDERED: metroNIDAZOLE 500 MG TABLET PO ONE (21:22)
[2019-05-15 02:06] LABS: Basophils # 0.1 K/mcL (0.0-0.2); Eosinophils # 0.2 K/mcL (0.0-0.6); Eosinophils % 4.4 %; Hematocrit 37.7 % (35.3-44.9); Immature Granulocytes % 0.2 % (0-4); Lymphocytes # 1.5 K/mcL (0.6-4.6); Lymphocytes % 31.5 %; Mean Corpuscular HGB Conc 31.8 g/dL (31.6-35.5); Mean Corpuscular Volume 94.3 fL (83.0-100.0); Mean Platelet Volume 9.8 fL (9.4-12.4); Monocytes # 0.6 K/mcL (0.0-1.3); Monocytes % 11.7 %; Neutrophils # 2.5 K/mcL (1.6-8.9); Platelet Count 228 K/mcL (140-400); Red Cell Distribution Width 16.6 % (11.5-14.5); Segmented Neutrophils % 51.2 %; White Blood Count 4.8 K/mcL (4.3-11.1)
[2019-05-15 02:16] LABS: INR 1.3; Prothrombin Time 15.3 Seconds (9.4-12.1)
[2019-05-15 02:23] LABS: BUN/Creatinine Ratio 28 (6-26); Blood Urea Nitrogen 21 mg/dL (6-20); Carbon Dioxide 27 mEq/L (23-29); Chloride 105 mEq/L (98-107); Glucose 95 mg/dL (70-105); Osmolality,Calculated 287 (280-300); Phosphorous 3.7 mg/dL (2.7-4.5); Potassium 4.4 mEq/L (3.5-5.1); Sodium 137 mEq/L (136-145); eGFR For African Americans > 60 (> 60); eGFR For Non-African Americans > 60 (> 60)
[2019-05-15] MEDS: Furosemide 40 MG TABLET PO SCH ×2 (09:03→16:40)
[2019-05-15] MEDS: SACUBITRIL/VALSARTAN 24/26 MG TABLET PO SCH ×2 (09:04→21:08)
[2019-05-15] MEDS: *HR* Digoxin 0.125 MG TABLET PO SCH (09:04)
[2019-05-15] MEDS: Metoprolol XL (24 HR) Succ 50 MG TAB.ER.24H PO SCH (09:04)
[2019-05-15] MEDS: Spironolactone 25 MG TABLET PO SCH (09:04)
[2019-05-15] MEDS: Heparin 25,000 UNIT/250 ML D5W 25,000 UNIT/250 ML IV.SOLN IVC SCH (14:47)
--- NOTE | 2019-05-15 16:23 | Internal Med Progress Note ---
Hospitalist Progress Note - Encounter Date of Encounter: 05/15/19 Time of Encounter: 16:00 - Subjective Interval History: No acute events overnight - Exam Vitals: Temp Pulse Resp BP Pulse Ox 97.9 F 71 12 103/70 97 05/15/19 12:11 05/15/19 12:11 05/15/19 12:11 05/15/19 12:11 05/15/19 12:11 Exam: `General appearance: Present: A&O X 3, no acute distress Head exam: Present: normocephalic Respiratory exam: Present: CTAB. Absent: accessory muscle use, rales, rhonchi, wheezes Cardiovascular exam: Present: RRR, +S1, +S2. Absent: diastolic murmur, gallop, rubs, systolic murmur GI/Abdominal exam: Soft, NT, ND, +BS Extremities exam: trace pedal edema Neurological exam: Present: alert, oriented X3, no focal deficits. Absent: altered - Assessment and Plan (1) Hematuria Current Visit: Yes Status: Acute Assessment and Plan: Pt developed hematuria while on heparin drip which raised suspicion for bladder pathology She had a CT done showing gross blood within the bladder Urology consulted and appreciate recs (2) Acute on chronic systolic (congestive) heart failure Current Visit: Yes Status: Acute Assessment and Plan: SOB associated with progressive worsening of lower extremity edema, most likely secondary to CHF exacerbation Continue diuresis with lasix BID. repeat echo this am showed worsening EF of 15% down from 20-25% about 3 months ago INR still elevated at 1.9 today, cardiology holding cath till INR trends down Patient has a mechanical valve so will continue bridging with heparin 05/15. INR trended down to 1.5. Cath was done overnight showing mild one vessel CAD with medical management recommended (3) S/P MVR (mitral valve replacement) Current Visit: Yes Status: Chronic Assessment and Plan: Hold warfarin and continue heparin bridge (4) HTN (hypertension) Current Visit: Yes Status: Chronic Assessment and Plan: Continue home meds (5) Bronchitis Current Visit: Yes Status: Acute Assessment and Plan: We will start the patient in when necessary DuoNeb. (6) Elevated troponin Current Visit: Yes Status: Acute Assessment and Plan: Likely demand ischemia. No acute intervention (7) Trichomoniasis Current Visit: Yes Status: Acute Assessment and Plan: Seen by obgyn and treated with metronidazole (8) DVT prophylaxis Current Visit: Yes Status: Acute Assessment and Plan: On warfarin - Time Spent with Patient Total time spent is greater than 50% in coordination of care (as documented) at patient's floor/unit and/or counseling patient: Internal Medicine: Result - Labs CBC & Chem 7: 05/15/19 01:24 05/15/19 01:24 Labs: Short CBC 05/15/19 Range/Units 01:24 WBC 4.8 (4.3-11.1) K/mcL Hgb 12.0 (11.5-15.4) g/dL Hct 37.7 (35.3-44.9) % Plt Count 228 (140-400) K/mcL Neutrophils # 2.5 (1.6-8.9) K/mcL BMP 05/15/19 01:24 Sodium 137 Potassium 4.4 Chloride 105 Carbon Dioxide 27 BUN 21 H Creatinine 0.76 Glucose 95 Calcium 10.0 - ABG Interpretation ABG results: PT/INR, D-dimer PT 15.3 Seconds (9.4-12.1) H 05/15/19 01:24 1253 ng/mLFEU (0-500) H 05/08/19 10:55 - Impressions Impressions Pelvis Ultrasound 05/14/19 18:15 IMPRESSION: Right ovary appears within normal limits. Hysterectomy and nonvisualization of the left ovary consistent with history of left oophorectomy. D/ / 05/14/2019 21:27:51 Nickolas Egan MD / [facility] Interpreting Provider: Nickolas Egan MD Abdomen/Pelvis CT 05/15/19 15:30 IMPRESSION: 1. High attenuation in the urinary bladder does not appear to be related to intravenous contrast and most likely represents blood within the urinary bladder. 2. No renal mass or hydronephrosis. 3. No urinary tract stones identified. D/ / 05/15/2019 16:14:07 Cem Mc MD / [facility] Interpreting Provider: Cem Mc MD Consult Discharge Plan - Plan Referrals: NONE,PCP [Primary Care Provider] - (1) Hematuria Qualifiers: Qualified Code(s): R31.9 - Hematuria, unspecified (4) HTN (hypertension) Qualifiers: Hypertension type: essential hypertension Qualified Code(s): I10 - Essential (primary) hypertension
--- NOTE | 2019-05-15 16:42 | Discharge Summary ---
Date of Encounter: 05/15/19 Time of Encounter: 17:00 - Discharge Diagnosis (1) Acute on chronic systolic (congestive) heart failure Priority: Primary Status: Acute Assessment and Plan: 58 year old female Patient with past medical history of congestive heart failure, cardiomyopathy and valvular heart disease on chronic coagulation with Coumadin for mechanical heart valve replacement who presented with history of several day of shortness of breath associated with progressive worsening of lower extremity edema. The patient also is complaining of mild productive cough associated with low-grade fever. She denies palpitation, paroxysmal nocturnal dyspnea, however she admits to dyspnea on exertion. The patient was admitted in January 2019 with similar symptoms,she was treated for congestive heart failure She was assessed with SOB with progressive worsening of lower extremity edema, secondary to acute worsening of chronic systolic CHF. She improved on diuresis with lasix, however an echo showed a depressed EF of 15%. She was seen by cardiology who determined a left heart cath was indicated to r/o ischemia based on her worsening EF. Cath was done showed mild one vessel disease and medical management was recommended. She however had to be placed on heparin drip to bridge due to her mechanical heart valve. She will require bridging back to coumadin. She had bleeding on heparin drip and was worked up for possible bladder pathology vs vaginal bleeding. She was seen by ADJUDICATION SPECIALIST and was treated for trichomoniasis with metronidazole. She however had a CT done showing blood within the bladder and she is being evaluated by urology. May require continuous bladder irrigation vs outpatient cystoscopy. 35 minutes was spent discharging this patient (2) Hematuria Priority: Primary Status: Acute Qualifiers: Qualified Code(s): R31.9 - Hematuria, unspecified (3) S/P MVR (mitral valve replacement) Priority: Primary Status: Chronic (4) HTN (hypertension) Priority: Primary Status: Chronic Qualifiers: Hypertension type: essential hypertension Qualified Code(s): I10 - Essential (primary) hypertension (5) Bronchitis Priority: Primary Status: Acute (6) Elevated troponin Priority: Primary Status: Acute (7) Trichomoniasis Priority: Primary Status: Acute (8) DVT prophylaxis Priority: Primary Status: Acute Hospital course: Ms. Ojeda is a 58 year old female - Time Spent with Patient Total time spent providing and/or coordinating discharge services: - Discharge Medications Prescriptions: New Sacubitril/Valsartan 24/26 mg [Entresto 24 mg-26 mg Tablet] 1 tab PO BID #60 tablet Furosemide [Lasix] 40 mg PO BIDDIURETIC #60 tablet Enoxaparin [Lovenox] 70 mg SQ Q12HR 5 Days #10 syr Continued Warfarin Sodium 10 mg PO TUTHSA Pravastatin Sodium [Pravachol] 20 mg PO DAILY Lisinopril [Zestril] 40 mg PO DAILY Omeprazole [PriLOSEC] 40 mg PO QPM Digoxin [Lanoxin] 125 mcg PO QAM Spironolactone [Aldactone] 12.5 mg PO QAM Metoprolol Succinate 100 mg PO DAILY Acetaminophen [Tylenol] 500 mg PO Q6HR Nitroglycerin 0.3 mg SL Q5MIN PRN PRN Reason: Chest Pain Warfarin Sodium 5 mg PO SUMOWEFR Mv-Min/Iron/Folic/Calcium/Vitk [Women's Multivitamin Tablet] 1 tab PO DAILY Cholecalciferol (D-3) [Vitamin D] 1,000 unit PO DAILY Ferrous Sulfate 325 mg PO DAILY Discontinued Furosemide [Lasix] 40 mg PO DAILY Home Medications: Lisinopril [Zestril] 40 mg PO DAILY 01/21/19 [History] Pravastatin Sodium [Pravachol] 20 mg PO DAILY 01/21/19 [History] Warfarin Sodium 10 mg PO TUTHSA 01/21/19 [History] Omeprazole [PriLOSEC] 40 mg PO QPM 01/22/19 [History] Digoxin [Lanoxin] 125 mcg PO QAM 05/08/19 [History] Metoprolol Succinate 100 mg PO DAILY 05/08/19 [History] Spironolactone [Aldactone] 12.5 mg PO QAM 05/08/19 [History] Acetaminophen [Tylenol] 500 mg PO Q6HR 05/09/19 [History] Cholecalciferol (D-3) [Vitamin D] 1,000 unit PO DAILY 05/09/19 [History] Ferrous Sulfate 325 mg PO DAILY 05/09/19 [History] Mv-Min/Iron/Folic/Calcium/Vitk [Women's Multivitamin Tablet] 1 tab PO DAILY 05/09/19 [History] Nitroglycerin 0.3 mg SL Q5MIN PRN 05/09/19 [History] Warfarin Sodium 5 mg PO SUMOWEFR 05/09/19 [History] Enoxaparin [Lovenox] 70 mg SQ Q12HR 5 Days #10 syr 05/15/19 [Rx] Furosemide [Lasix] 40 mg PO BIDDIURETIC #60 tablet 05/15/19 [Rx] Sacubitril/Valsartan 24/26 mg [Entresto 24 mg-26 mg Tablet] 1 tab PO BID #60 tablet 05/15/19 [Rx] Allergies/Adverse Reactions: Allergy/AdvReac Type Severity Reaction Status Date / Time loratadine [From Claritin] Allergy Palpitation Verified 05/09/19 17:08 s morphine Allergy Hives Verified 05/09/19 17:08 Date of admission: 05/08/19 17:08 Primary care physician: PCP NONE Consults: 05/08/19 15:27 Consult to Cardiac Rehabilitation-Phase1 [CONS] Routine Comment: Reason for Consult: heart failure Call Completed: Yes Consult to Nurse Navigator [CONS] Routine Comment: 05/09/19 10:47 Consult to Cardiology [CONS] Routine Comment: Consulting Provider: Cardiology [place] Reason for Consult: worsening cardiomyopathy, EF depressed at 15% Call Completed: No 05/14/19 16:48 Consult to ADJUDICATION SPECIALIST [CONS] Routine Consulting Provider: [facility] [place] Reason for Consult: post menopausal vaginal bleed Call Completed: Yes 05/15/19 16:20 Consult to Urology [CONS] Routine Consulting Provider: Urology [place] Reason for Consult: hematuria with blood in bladder on heparin drip Call Completed: Yes - Constitutional Vitals: Temp Pulse Resp BP Pulse Ox 97.9 F 73 14 106/73 97 05/15/19 16:24 05/15/19 16:24 05/15/19 16:24 05/15/19 16:24 05/15/19 12:11 General appearance: Present: A&O X 3 Exam: `General appearance: Present: A&O X 3, no acute distress Head exam: Present: normocephalic Respiratory exam: Present: CTAB. Absent: accessory muscle use, rales, rhonchi, wheezes Cardiovascular exam: Present: RRR, +S1, +S2. Absent: diastolic murmur, gallop, rubs, systolic murmur GI/Abdominal exam: Soft, NT, ND, +BS Extremities exam: trace pedal edema Neurological exam: Present: alert, oriented X3, no focal deficits. Absent: alt ered - Patient Status Disposition: Home, Self-Care Condition: Good - Discharge Instructions Follow Up With: NONE,PCP [Primary Care Provider] -
--- NOTE | 2019-05-15 16:47 | Urology - Consult Note ---
Date of Encounter: 05/15/19 Time of Encounter: 16:45 - Assessment and Plan (1) Gross hematuria Current Visit: Yes Status: Acute Assessment and plan: Unknown etiology for the gross hematuria but it was exacerbated by heparin drip. This has been stopped and she is being transitioned to management with Lovenox. Patient states that the hematuria is not incredibly dark and she is not passing clots. She also reports no difficulty with voiding. At this time I decided not to place a hematuria catheter and start CBI. We will reexamine the patient in the morning. Hopefully the urine will continue to improve. I reviewed the CT scan and it appears the bladder is fairly empty. There may be a small volume of blood products but no evidence of significant clot retention. Unable to visualize if any tumors or other abnormalities are evident without contrast. We will likely proceed with outpatient office cystoscopy. Urology CN:CARLOTA Consult date: 05/15/19 Reason for consult Urology: Gross Hematuria History of present illness: 58-year-old female. Congestive heart failure and mechanical heart valve. She was managed with warfarin but switched to a heparin drip during the hospitalization. She began to have significant gross hematuria that has not resolved. She is currently being switched to Lovenox. consult for . . She reports that she is urinating gross hematuria but no clots. No dysuria. She states the urine is light reddish brown in color.. She reports she experienced one episode of gross hematuria 10 years ago that was not evaluated. No history of bladder cancer. CT scan was performed. Past Med Surg Social Fam HX - Past Medical History Medical history: atrial fibrillation, cardiomyopathy, CHF, coronary artery disease, valvular heart disease, other (Pneumatic heart disease) Additional medical history: heart palps Psychiatric history: no psych history - Past Surgical History Surgical History: hysterectomy Additional surgical history: Fatty tumor in back removed. Open heart valve replacement take surgery 2 mitral 1979,. Mechanical valve placement mitral valve 1993. Pacemaker and defibrillator placed 2012. Right femur many replacement 1989 - Social History Smoking Status: Never smoker Smokeless Tobacco Status: No Alcohol use: none Drug use: none - Family History Father Living Status: Mother Living Status: Hx Family Cardiac Disorders: Yes Hx Family Respiratory Disorders: Yes Sister Hx Family Cardiac Disorders: Yes Brother Hx Family Cardiac Disorders: Yes Hx Family Cancer: Yes Hx Family Endocrine Disorder: Yes Medications and Allergies Lisinopril [Zestril] 40 mg PO DAILY 01/21/19 [History] Pravastatin Sodium [Pravachol] 20 mg PO DAILY 01/21/19 [History] Warfarin Sodium 10 mg PO TUTHSA 01/21/19 [History] Omeprazole [PriLOSEC] 40 mg PO QPM 01/22/19 [History] Digoxin [Lanoxin] 125 mcg PO QAM 05/08/19 [History] Metoprolol Succinate 100 mg PO DAILY 05/08/19 [History] Spironolactone [Aldactone] 12.5 mg PO QAM 05/08/19 [History] Acetaminophen [Tylenol] 500 mg PO Q6HR 05/09/19 [History] Cholecalciferol (D-3) [Vitamin D] 1,000 unit PO DAILY 05/09/19 [History] Ferrous Sulfate 325 mg PO DAILY 05/09/19 [History] Mv-Min/Iron/Folic/Calcium/Vitk [Women's Multivitamin Tablet] 1 tab PO DAILY 05/09/19 [History] Nitroglycerin 0.3 mg SL Q5MIN PRN 05/09/19 [History] Warfarin Sodium 5 mg PO SUMOWEFR 05/09/19 [History] Enoxaparin [Lovenox] 70 mg SQ Q12HR 5 Days #10 syr 05/15/19 [Rx] Furosemide [Lasix] 40 mg PO BIDDIURETIC #60 tablet 05/15/19 [Rx] Sacubitril/Valsartan 24/26 mg [Entresto 24 mg-26 mg Tablet] 1 tab PO BID #60 tablet 05/15/19 [Rx] Allergy/AdvReac Type Severity Reaction Status Date / Time loratadine [From Claritin] Allergy Palpitation Verified 05/09/19 17:08 s morphine Allergy Hives Verified 05/09/19 17:08 Review of Systems - Constitutional fatigue, no chills, no fever(s) - EENT Nose, mouth and throat: no dizziness - Cardiovascular no chest pain - Respiratory no cough - Gastrointestinal no abdominal pain, no nausea - Genitourinary Genitourinary: hematuria, no difficulty voiding - Musculoskeletal back pain - Integumentary no erythema - Neurological no confusion - Psychiatric no anxiety - Hematologic/Lymphatic easy bleeding - Allergic/Immunologic no throat swelling Exam Initial Vital Signs Temp Pulse Resp BP Pulse Ox 98.5 F 118 18 154/106 94 05/08/19 10:34 05/08/19 10:34 05/08/19 10:34 05/08/19 10:34 05/08/19 10:34 - General physical appearance Present: well developed, no distress, no pain - Eyes Present: PERRL - ENT Present: normal nares, no congestion - Neck Present: no masses, no lymphadenopathy - Respiratory Present: normal respiratory effort - Abdomen Abdomen: Present: soft. Absent: suprapubic tenderness - Integumentary Present: no rash - Neurologic Present: normal coordination. Absent: disoriented, confused - Additional Findings no voided urine present for visualization Urology Results - Labs 05/15/19 01:24 05/15/19 01:24 Abnormal lab results WBC 3.4 K/mcL (4.3-11.1) L 05/11/19 04:29 RBC 3.80 M/mcL (3.82-4.97) L 05/12/19 04:05 Hgb 11.3 g/dL (11.5-15.4) L 05/12/19 04:05 Hct 35.2 % (35.3-44.9) L 05/11/19 04:29 MCHC 31.3 g/dL (31.6-35.5) L 05/14/19 07:13 RDW 16.6 % (11.5-14.5) H 05/15/19 01:24 1.5 K/mcL (1.6-8.9) L 05/11/19 04:29 Present (Not Present) A 05/13/19 06:18 Present (Not Present) A 05/13/19 06:18 1+ (Not Present) A 05/12/19 04:05 PT 15.3 Seconds (9.4-12.1) H 05/15/19 01:24 1253 ng/mLFEU (0-500) H 05/08/19 10:55 Heparin Anti-Xa, Unfract 0.16 IU/mL (0.30-0.70) L 05/15/19 01:24 Potassium 3.3 mEq/L (3.5-5.1) L 05/09/19 00:15 Chloride 108 mEq/L (98-107) H 05/11/19 04:29 Carbon Dioxide 30 mEq/L (23-29) H 05/14/19 07:13 BUN 21 mg/dL (6-20) H 05/15/19 01:24 28 (6-26) H 05/15/19 01:24 Glucose 150 mg/dL (70-105) H 05/09/19 00:15 Calcium 10.6 mg/dL (8.6-10.3) H 05/14/19 07:13 1.9 mg/dL (0.3-1.0) H 05/09/19 00:15 0.06 ng/mL (< 0.04) H* 05/09/19 00:15 B-Natriuretic Peptide 982 pg/mL (Less than 100) H 05/09/19 00:15 6.1 g/dL (6.4-8.9) L 05/09/19 00:15 24 mg/dL (40-59) L 05/09/19 00:15 Slightly Cloudy (Clear) A 05/12/19 Unknown Ur Specific [facility] < 1.005 (1.010-1.025) L 05/12/19 Unknown 30 mg/dL (Neg-Trace) H 05/12/19 Unknown Large (Negative) H 05/12/19 Unknown Small (Negative) H 05/12/19 Unknown >=8.0 mg/dL (Normal) H 05/12/19 Unknown Ur Leukocyte Esterase Moderate (Negative) H 05/12/19 Unknown TNTC per hpf (0-3) H 05/12/19 Unknown 30-50 per hpf (0-3) H 05/12/19 Unknown Ur Squamous Epith Cells Many per lpf (None-Few) H 05/12/19 Unknown Ur Culture Indicated? YES (NO) A 05/12/19 Unknown Diabetes panel 05/15/19 Range/Units 01:24 Sodium 137 (136-145) mEq/L Potassium 4.4 (3.5-5.1) mEq/L Chloride 105 (98-107) mEq/L Carbon Dioxide 27 (23-29) mEq/L BUN 21 H (6-20) mg/dL Creatinine 0.76 (0.60-1.20) mg/dL Glucose 95 (70-105) mg/dL Calcium 10.0 (8.6-10.3) mg/dL Calcium panel 05/15/19 Range/Units 01:24 Calcium 10.0 (8.6-10.3) mg/dL Phosphorus 3.7 (2.7-4.5) mg/dL Pituitary panel 05/15/19 Range/Units 01:24 Sodium 137 (136-145) mEq/L Potassium 4.4 (3.5-5.1) mEq/L Chloride 105 (98-107) mEq/L Carbon Dioxide 27 (23-29) mEq/L BUN 21 H (6-20) mg/dL Creatinine 0.76 (0.60-1.20) mg/dL Glucose 95 (70-105) mg/dL Calcium 10.0 (8.6-10.3) mg/dL Adrenal panel 05/15/19 Range/Units 01:24 Sodium 137 (136-145) mEq/L Potassium 4.4 (3.5-5.1) mEq/L Chloride 105 (98-107) mEq/L Carbon Dioxide 27 (23-29) mEq/L BUN 21 H (6-20) mg/dL Creatinine 0.76 (0.60-1.20) mg/dL Glucose 95 (70-105) mg/dL Calcium 10.0 (8.6-10.3) mg/dL All other labs normal. - Imaging CT scan - abdomen: image reviewed CT scan - pelvis: image reviewed (I reviewed the CT scan. The bladder is mostly collapsed but there is a small amount likely blood products within the lumen. There was no hydronephrosis. Unable to determine if there is any underlying tumor or malignancy on a noncontrast imaging study.) Consult Discharge Plan - Plan Referrals: NONE,PCP [Primary Care Provider] - Prescriptions: Sacubitril/Valsartan 24/26 mg [Entresto 24 mg-26 mg Tablet] 1 tab PO BID #60 tablet Furosemide [Lasix] 40 mg PO BIDDIURETIC #60 tablet Enoxaparin [Lovenox] 70 mg SQ Q12HR 5 Days #10 syr
[2019-05-15] MEDS ORDERED: *HR* Warfarin 7.5 MG TABLET PO ONE (18:00)
[2019-05-15] MEDS: *HR* Enoxaparin 80 MG/0.8 ML SYRINGE SQ SCH (18:51)
[2019-05-15] MEDS: Acetaminophen 325 MG TABLET PO PRN (21:07)
[2019-05-16] MEDS: *HR* Enoxaparin 80 MG/0.8 ML SYRINGE SQ SCH (06:15)
[2019-05-16 07:02] LABS: Basophils # 0.1 K/mcL (0.0-0.2); Basophils % 1.2 %; Eosinophils # 0.2 K/mcL (0.0-0.6); Eosinophils % 3.7 %; Hematocrit 41.8 % (35.3-44.9); Hemoglobin 13.1 g/dL (11.5-15.4); Immature Granulocytes % 0.2 % (0-4); Lymphocytes # 1.5 K/mcL (0.6-4.6); Lymphocytes % 35.2 %; Mean Corpuscular HGB Conc 31.3 g/dL (31.6-35.5); Mean Corpuscular Hemoglobin 29.9 pg (28.0-33.3); Mean Corpuscular Volume 95.4 fL (83.0-100.0); Mean Platelet Volume 10.1 fL (9.4-12.4); Monocytes # 0.6 K/mcL (0.0-1.3); Monocytes % 13.1 %; Platelet Count 224 K/mcL (140-400); Red Blood Count 4.38 M/mcL (3.82-4.97); Red Cell Distribution Width 16.5 % (11.5-14.5); Segmented Neutrophils % 46.6 %; White Blood Count 4.3 K/mcL (4.3-11.1)
[2019-05-16 07:10] LABS: INR 1.7; Prothrombin Time 18.9 Seconds (9.4-12.1)
[2019-05-16 07:24] LABS: BUN/Creatinine Ratio 26 (6-26); Blood Urea Nitrogen 18 mg/dL (6-20); Calcium 10.2 mg/dL (8.6-10.3); Carbon Dioxide 25 mEq/L (23-29); Chloride 106 mEq/L (98-107); Glucose 84 mg/dL (70-105); Osmolality,Calculated 285 (280-300); Potassium 4.5 mEq/L (3.5-5.1); Sodium 137 mEq/L (136-145); eGFR For African Americans > 60 (> 60); eGFR For Non-African Americans > 60 (> 60)
[2019-05-16 07:34] VITALS: BP 104/67
--- NOTE | 2019-05-16 08:12 | Urology Progress Note ---
<Elaine Chris N - Last Filed: 05/16/19 08:09> Date of Encounter: 05/16/19 Time of Encounter: 08:09 - Assessment and Plan (1) Gross hematuria Status: Acute Assessment and plan: Patient is a 58-year-old female who presents with gross hematuria of unknown etiology. Patient was placed on a heparin drip, and hematuria worsened. Patient has been transitioned to Lovenox, and urine appears transparent, clear yellow today. Patient is aware that she will require an outpatient cystoscopy with Dr. Gupta within 2 weeks of discharge for direct visualization of the bladder wall. Patient is okay to be discharged from a urologic standpoint, and patient states she will call for a sooner appointment if hematuria returns at home. Progress Note Subjective: no new complaints Narrative: Patient seen and examined sitting upright in bed in no apparent distress. Patient reports urine is clearing. Patient denies any fever, chills, flank pain, dysuria or gross hematuria. Objective Initial Vital Signs Temp Pulse Resp BP Pulse Ox 98.5 F 118 18 154/106 94 05/08/19 10:34 05/08/19 10:34 05/08/19 10:34 05/08/19 10:34 05/08/19 10:34 - General physical appearance Present: well developed, no distress, no pain - Respiratory Present: normal expansion, normal respiratory effort - Abdomen Present: soft, non tender. Absent: distended - Genitourinary Urine Appearance: Present: Clear. Absent: Hematuria - Integumentary Present: no rash, no abnormal pigmentation - Musculoskeletal Present: normal posture - Psychiatric Present: oriented to time, oriented to person, oriented to place, speech is normal, memory intact - Labs 05/16/19 06:42 05/16/19 06:42 Diabetes panel 05/16/19 Range/Units 06:42 Sodium 137 (136-145) mEq/L Potassium 4.5 (3.5-5.1) mEq/L Chloride 106 (98-107) mEq/L Carbon Dioxide 25 (23-29) mEq/L BUN 18 (6-20) mg/dL Creatinine 0.69 (0.60-1.20) mg/dL Glucose 84 (70-105) mg/dL Calcium 10.2 (8.6-10.3) mg/dL Calcium panel 05/16/19 Range/Units 06:42 Calcium 10.2 (8.6-10.3) mg/dL Pituitary panel 05/16/19 Range/Units 06:42 Sodium 137 (136-145) mEq/L Potassium 4.5 (3.5-5.1) mEq/L Chloride 106 (98-107) mEq/L Carbon Dioxide 25 (23-29) mEq/L BUN 18 (6-20) mg/dL Creatinine 0.69 (0.60-1.20) mg/dL Glucose 84 (70-105) mg/dL Calcium 10.2 (8.6-10.3) mg/dL Adrenal panel 05/16/19 Range/Units 06:42 Sodium 137 (136-145) mEq/L Potassium 4.5 (3.5-5.1) mEq/L Chloride 106 (98-107) mEq/L Carbon Dioxide 25 (23-29) mEq/L BUN 18 (6-20) mg/dL Creatinine 0.69 (0.60-1.20) mg/dL Glucose 84 (70-105) mg/dL Calcium 10.2 (8.6-10.3) mg/dL Consult Discharge Plan - Plan Instructions: Furosemide (By mouth), Enoxaparin (Injection), Heart Failure (DC) Referrals: Johan Walker [Resident] - 05/18/19 2:00 pm () Teodoro Gupta MD [Partnered Physician] - 05/30/19 3:00 pm Prescriptions: Sacubitril/Valsartan 24/26 mg [Entresto 24 mg-26 mg Tablet] 1 tab PO BID #60 tablet Furosemide [Lasix] 40 mg PO BIDDIURETIC #60 tablet Enoxaparin [Lovenox] 70 mg SQ Q12HR 5 Days #10 syr <Teodoro Gupta - Last Filed: 05/18/19 06:35> Date of Encounter: 05/18/19 - Assessment and Plan (1) Gross hematuria Status: Acute Assessment and plan: Patient seen and examined in conjunction with physician liaison inspection laboratory assistant. I agree with her assessment and plan. Urine has cleared with change to Lovenox. Okay to discharge. Will arrange outpatient cystoscopy. Objective Initial Vital Signs Temp Pulse Resp BP Pulse Ox 98.5 F 118 18 154/106 94 05/08/19 10:34 05/08/19 10:34 05/08/19 10:34 05/08/19 10:34 05/08/19 10:34 - Labs 05/16/19 06:42 05/16/19 06:42
[2019-05-16] MEDS: Heparin 25,000 UNIT/250 ML D5W 25,000 UNIT/250 ML IV.SOLN IVC SCH (09:05)
[2019-05-16] MEDS: Furosemide 40 MG TABLET PO SCH (09:08)
[2019-05-16] MEDS: SACUBITRIL/VALSARTAN 24/26 MG TABLET PO SCH (09:08)
[2019-05-16] MEDS: Spironolactone 25 MG TABLET PO SCH (09:08)
[2019-05-16] MEDS: *HR* Digoxin 0.125 MG TABLET PO SCH (09:08)
[2019-05-16] MEDS: Metoprolol XL (24 HR) Succ 50 MG TAB.ER.24H PO SCH (09:08)
== END 2019-05-16 13:18 | disposition home or self-care (01) | DRG 287 ==
LOC: EMEROOARM 10:29 → 2NENU 10:29 → SUATTDRO 17:08
PROVIDERS: ADMIT Internal Medicine Nephrology; ATTEND Internal Medicine